=== PATIENT | female | born 1970 | race Two or more races ===

== ENCOUNTER 2020-04-11 15:22 | Outpatient (REF) | payer OTHER, SELFPAY | END 2020-04-11 15:23 | disposition home or self-care (01) | LOC: HO.LAB 15:22 | PROVIDERS: PCP Pediatrics; Visit Provider Internal Medicine | DX: Z20.828 Contact with and (suspected) exposure to other viral communicable diseases (principal) | CPT/HCPCS: C9803; U0003 ==

== ENCOUNTER 2020-07-30 07:40 | Outpatient (REF) | payer OTHER, SELFPAY ==
[2020-07-30 08:28] LABS: MANUAL DIFF FLAG NO
[2020-07-30 08:33] LABS: Glucose Urine UA NEG (NEG); Leukocyte Esterase Urine NEG (NEG); Nitrite Urine NEG (NEG); Specific Gravity - Urine >= 1.030 (1.005-1.025); Urine Blood 1+ (NEG); Urine Ketones NEG (NEG); Urine Protein NEG (NEG-TRACE)
[2020-07-30 08:35] LABS: Appearance Urine HAZY; Color Urine YELLOW
[2020-07-30 08:41] LABS: Basophils Percent Auto 0.8 % (0-2); Eosinophils Absolute Auto 0.1 X10*3/uL (0.0-0.4); Eosinophils Percent Auto 3.1 % (0-4); Hematocrit 38.3 % (37-47); Hemoglobin 12.9 g/dl (12.0-16.0); Lymphocytes Absolute Auto 1.7 X10*3/uL (1.2-4.9); Mean Corpuscular HGB Conc 33.7 g/dl (31.0-35.0); Mean Corpuscular Hemoglobin 30.7 pg (27.0-33.0); Mean Corpuscular Volume 91.2 fL (80-98); Monocytes Absolute Auto 0.4 X10*3/uL (0.1-1.2); Monocytes Percent Auto 9.2 % (2-11); Neutrophils Absolute Auto 1.6 X10*3/uL (2.0-8.3); Neutrophils Percent Auto 41.9 % (45-73); Platelet Count 227 X10*3/uL (160-400); Red Cell Distribution Width 12.4 % (11.0-16.0); White Blood Count 3.8 X10*3/uL (4.8-10.8)
[2020-07-30 09:01] LABS: Bacteria Urine 1+ /LPF; Mucus Urine 1+ /LPF; Squamous Epithelial Cell Urine 3+ /LPF
[2020-07-30 09:28] LABS: Alanine Aminotransferase 43 U/L (0-31); Albumin Level 4.2 g/dL (3.5-5.0); Alkaline Phosphatase 99 U/L (39-117); Anion Gap 12 (12-20); Aspartate Amino Transferase 29 U/L (5-31); Bilirubin Total 1.3 mg/dL (0.0-1.0); Blood Urea Nitrogen 11 mg/dL (9-16); Calcium 9.4 mg/dL (8.4-10.2); Carbon Dioxide 26 mmol/L (22-29); Chloride 104 mmol/L (96-108); Cholesterol 231 mg/dL; Estimated Glomerular Filt Rate > 60; Glucose Fasting 113 mg/dL (60-99); HDL Cholesterol 49 mg/dL; LDL Cholesterol Calculated 146 mg/dl; Potassium 3.7 mmol/L (3.3-5.1); Sodium 138 mmol/L (135-145); Total Protein 7.4 g/dL (6.5-8.0); Triglycerides 180 mg/dL
[2020-07-30 09:31] LABS: T4 Thyroxine 7.3 ug/dL (4.5-12.0); Thyroid Stimulating Hormone 2.45 uIU/mL (0.32-4.0); Vitamin D 25-OH Total 23.5 ng/mL (>30)
[2020-07-31 20:22] LABS: Triiodothyronine T3 Total 137 ng/dL (76-181)
== END 2020-07-30 07:41 | disposition home or self-care (01) ==
LOC: HO.LAB 07:40
PROVIDERS: PCP Pediatrics; Visit Provider Pediatrics
DX: D64.9 Anemia, unspecified (principal); E03.8 Other specified hypothyroidism; E55.9 Vitamin D deficiency, unspecified; K21.9 Gastro-esophageal reflux disease without esophagitis
CPT/HCPCS: 36415; 80053; 80061; 81001; 82306; 84436; 84443; 84480; 85025

== ENCOUNTER 2020-12-31 19:59 | Emergency (ER) | payer OTHER, SELFPAY ==
--- NOTE | ~2020-12-31 | XR_ITS ---
EXAMINATION: XR CHEST CLINICAL INFORMATION: Chest pain. COMPARISON: None TECHNIQUE: 2 views of the chest were obtained. FINDINGS: No significant abnormality is noted involving the heart, lungs, mediastinum, bony thorax or soft tissues. XR/XR chest 2V IMPRESSION: Unremarkable examination.
[2020-12-31 20:24] LABS: MANUAL DIFF FLAG NO
[2020-12-31 20:25] LABS: Basophils Percent Auto 0.5 % (0-2); Eosinophils Absolute Auto 0.1 X10*3/uL (0.0-0.4); Eosinophils Percent Auto 2.3 % (0-4); Hemoglobin 12.8 g/dl (12.0-16.0); Imm Gran Abs Auto 0.01 X10*3/uL (0.00-0.03); Imm Gran Pct Auto 0.2 % (0.0-0.4); Lymphocytes Absolute Auto 2.4 X10*3/uL (1.2-4.9); Lymphocytes Percent Auto 43.5 % (20-40); Mean Corpuscular HGB Conc 34.6 g/dl (31.0-35.0); Mean Corpuscular Hemoglobin 31.9 pg (27.0-33.0); Mean Corpuscular Volume 92.3 fL (80-98); Mean Platelet Volume 10.1 fL (9.4-12.3); Monocytes Absolute Auto 0.5 X10*3/uL (0.1-1.2); Monocytes Percent Auto 8.8 % (2-11); Neutrophils Absolute Auto 2.5 X10*3/uL (2.0-8.3); Neutrophils Percent Auto 44.7 % (45-73); Platelet Count 216 X10*3/uL (160-400); Red Blood Count 4.01 X10*6/uL (4.20-5.50); Red Cell Distribution Width 13.2 % (11.0-16.0); White Blood Count 5.6 X10*3/uL (4.8-10.8)
[2020-12-31 20:49] LABS: Anion Gap 13 (12-20); Blood Urea Nitrogen 11 mg/dL (9-16); Calcium 9.3 mg/dL (8.4-10.2); Carbon Dioxide 26 mmol/L (22-29); Chloride 106 mmol/L (96-108); Estimated Glomerular Filt Rate 59; Glucose Random 135 mg/dL (60-115); Sodium 141 mmol/L (135-145)
[2020-12-31 20:56] LABS: Troponin-I High Sensitivity < 3.5 ng/L (<3.5-17.0)
[2020-12-31 21:25] VITALS: BP 139/87; PULSE 75; RESP 18; TEMP 37.1; O2SAT 98; BMI 25.7
[2021-01-01 01:04] VITALS: BP 143/80; PULSE 69; RESP 14; TEMP 36.8; O2SAT 99
--- NOTE | 2021-01-01 01:19 | ED.CHESTPAIN ---
HPI - Chest Pain General Chief Complaint: Chest Pain Stated Complaint: cp Time Seen by Provider: 01/01/21 00:55 Source: patient Mode of arrival: ambulatory History of Present Illness HPI narrative: 50-year-old female with history of gastritis presents with several transient episodes lasting less than seconds of mid chest discomfort that patient describes as ?somebody punching her in the chest?. This was not associated with radiation into her neck, arm but the latter episodes patient describes radiation into her back. Otherwise, due to the severity of the pain patient experienced initial shortness of breath which quickly resolved. Patient denies any associated fevers, chills, nausea, vomiting, abdominal pain or diarrhea. Patient has not had any COVID-19 vaccines. Related Data Allergies Allergy/AdvReac Type Severity Reaction Status Date / Time penicillin V Allergy Unknown Unknown Verified 12/31/20 21:24 Review of Systems Review of Systems: Pertinent positives and negatives as stated in HPI and 10 point review of systems is otherwise negative. PMFSH Past Medical History Source: nursing notes reviewed Medical History Thyroid activity decreased Social History Social History Advance Directives: No Physical Exam Vital Signs: Vital Signs: Last Vital Signs Temp 98.3 F 01/01/21 01:04 Pulse 69 01/01/21 01:31 Resp 18 01/01/21 01:31 BP 138/83 01/01/21 01:31 Pulse Ox 100 01/01/21 01:31 Body Mass Index 25.7 VITAL SIGNS: Reviewed. GENERAL: Well developed, well nourished, in no acute distress. HEAD: Normocephalic/atraumatic EYES: PERRLA, EOMI EARS: Ext canals without abnormality OROPHARYNX: no oral lesions noted, posterior pharynx clear NECK: Supple, no adenopathy LUNGS: Normal breath sounds. No adventitious sounds or accessory muscle use. SpO2<99> CARDIOVASCULAR: Regular rate and rhythm without noted murmurs, no JVD or lower extremity edema. ABDOMEN: Soft, non-tender, non-distended with bowel sounds. MUSCULOSKELETAL: No tenderness, deformities, or effusions noted on gross inspection. EXTREMITIES: No cyanosis, clubbing or edema. SKIN: Inspection of the skin reveals no rashes NEUROLOGIC: Alert and oriented x 4. Strength and sensation to light touch were grossly intact x 4. Course Course Course Narrative: 50-year-old female with history and clinical presentation inconsistent with angina and on review of all investigations no evidence of elevated troponin or EKG changes and otherwise No suspicion for pneumonia, PE but suspect GERD. HEART Score:2 On review of all investigations and re-evaluation there are no acute findings and patient is feeling better after receiving GI cocktail. Patient otherwise discharged home in stable condition with instructions to follow-up with primary care provider. MDM - Chest Pain Lab Data Result diagrams: 12/31/20 20:20 12/31/20 20:20 Labs: Lab Results 12/31/20 12/31/20 12/31/20 Range/Units 20:20 20:20 20:20 WBC 5.6 (4.8-10.8) X10*3/uL RBC 4.01 L (4.20-5.50) X10*6/uL Hgb 12.8 (12.0-16.0) g/dl Hct 37.0 (37-47) % MCV 92.3 (80-98) fL MCH 31.9 (27.0-33.0) pg MCHC 34.6 (31.0-35.0) g/dl RDW 13.2 (11.0-16.0) % Plt Count 216 (160-400) X10*3/uL MPV 10.1 (9.4-12.3) fL Immature Gran % (Auto) 0.2 (0.0-0.4) % Neut % (Auto) 44.7 L (45-73) % Lymph % (Auto) 43.5 H (20-40) % [place] % (Auto) 8.8 (2-11) % Eos % (Auto) 2.3 (0-4) % Baso % (Auto) 0.5 (0-2) % Lymph # (Auto) 2.4 (1.2-4.9) X10*3/uL [place] # (Auto) 0.5 (0.1-1.2) X10*3/uL Eos # (Auto) 0.1 (0.0-0.4) X10*3/uL Baso # (Auto) 0.0 (0.0-0.2) X10*3/uL Abs Immat Gran (auto) 0.01 (0.00-0.03) X10*3/uL Absolute Neuts (auto) 2.5 (2.0-8.3) X10*3/uL Absolute Nucleated RBC 0.000 (0.0-0.012) X10*3/uL Nucleated RBC % (auto) 0.0 (0.0-0.2) /100WBC Sodium 141 (135-145) mmol/L Potassium 4.0 (3.3-5.1) mmol/L Chloride 106 (96-108) mmol/L Carbon Dioxide 26 (22-29) mmol/L Anion Gap 13 (12-20) BUN 11 (9-16) mg/dL Creatinine 1.00 (0.5-1.4) mg/dL Estim Creat Clear Calc TNP Estimated GFR 59 Random Glucose 135 H (60-115) mg/dL Calcium 9.3 (8.4-10.2) mg/dL Troponin I High Sens < 3.5 (<3.5-17.0) ng/L TSH 14.52 H (0.32-4.0) uIU/mL Urine Color Urine Appearance Urine pH (5.0-8.0) Ur Specific Maria Stein (1.005-1.025) Urine Protein (NEG-TRACE) MG/DL Urine Glucose (UA) (NEG) MG/DL Urine Ketones (NEG) MG/DL Urine Blood (NEG) Urine Nitrite (NEG) Ur Leukocyte Esterase (NEG) Urine RBC (0) /HPF Urine WBC (0-4) /HPF Ur Squamous Epith Cells /LPF Urine Bacteria /LPF Urine Test (NEGATIVE) 01/01/21 01/01/21 Range/Units 01:33 01:33 WBC (4.8-10.8) X10*3/uL RBC (4.20-5.50) X10*6/uL Hgb (12.0-16.0) g/dl Hct (37-47) % MCV (80-98) fL MCH (27.0-33.0) pg MCHC (31.0-35.0) g/dl RDW (11.0-16.0) % Plt Count (160-400) X10*3/uL MPV (9.4-12.3) fL Immature Gran % (Auto) (0.0-0.4) % Neut % (Auto) (45-73) % Lymph % (Auto) (20-40) % [place] % (Auto) (2-11) % Eos % (Auto) (0-4) % Baso % (Auto) (0-2) % Lymph # (Auto) (1.2-4.9) X10*3/uL [place] # (Auto) (0.1-1.2) X10*3/uL Eos # (Auto) (0.0-0.4) X10*3/uL Baso # (Auto) (0.0-0.2) X10*3/uL Abs Immat Gran (auto) (0.00-0.03) X10*3/uL Absolute Neuts (auto) (2.0-8.3) X10*3/uL Absolute Nucleated RBC (0.0-0.012) X10*3/uL Nucleated RBC % (auto) (0.0-0.2) /100WBC Sodium (135-145) mmol/L Potassium (3.3-5.1) mmol/L Chloride (96-108) mmol/L Carbon Dioxide (22-29) mmol/L Anion Gap (12-20) BUN (9-16) mg/dL Creatinine (0.5-1.4) mg/dL Estim Creat Clear Calc Estimated GFR Random Glucose (60-115) mg/dL Calcium (8.4-10.2) mg/dL Troponin I High Sens (<3.5-17.0) ng/L TSH (0.32-4.0) uIU/mL Urine Color COLORLESS Urine Appearance CLEAR Urine pH 6.0 (5.0-8.0) Ur Specific Maria Stein 1.010 (1.005-1.025) Urine Protein NEG (NEG-TRACE) MG/DL Urine Glucose (UA) NEG (NEG) MG/DL Urine Ketones NEG (NEG) MG/DL Urine Blood TRACE (NEG) Urine Nitrite NEG (NEG) Ur Leukocyte Esterase NEG (NEG) Urine RBC 1-4 (0) /HPF Urine WBC 0-2 (0-4) /HPF Ur Squamous Epith Cells 2+ /LPF Urine Bacteria NONE /LPF Urine Test NEGATIVE (NEGATIVE) ECG Data ECG #1: Attestation: I personally reviewed and interpreted this ECG as follows: Prior ECG tracings: not available for review Interpretation: Normal sinus rhythm, HR -84, incomplete RBBB, no STEMI, MA/QRS/QTC are within normal limits Discharge Plan Discharge Clinical Impression: Atypical chest pain, Gastroesophageal reflux disease Patient Disposition: Home, Self-Care Instructions: Gastroesophageal Reflux Disease (ED), Diet for Stomach Ulcers and Gastritis (ED) Additional Instructions: 1. Reanude todos los medicamentos caseros. 2. Se carcamo observado que higinio niveles de tiroides son levemente anormales y debe regresar a fonseca proveedor de atenci?n primaria para discutir el ajuste de la medicaci?n. 3. Khushbu un seguimiento con fonseca proveedor de atenci?n primaria en los pr?ximos 2-3 d?as para minna reevaluaci?n. Regrese a la antonino de emergencias por un empeoramiento eugene de los s?ntomas. Print Language: Sinhala
[2021-01-01 01:31] VITALS: BP 138/83; PULSE 69; RESP 18; O2SAT 100
[2021-01-01] MEDS: Lidocaine HCl Viscous 2 % 15 ML SOLUTION 10 ML MUCOUS MEM (01:32)
[2021-01-01] MEDS: Magnesium Hydrox/Alum Hydrox 30 ML ORAL.SUSP PO (01:32)
[2021-01-01 01:40] LABS: Appearance Urine CLEAR; Color Urine COLORLESS; Glucose Urine UA NEG (NEG); Leukocyte Esterase Urine NEG (NEG); Nitrite Urine NEG (NEG); UACC Culture Trigger NO; Urine Blood TRACE (NEG); Urine Ketones NEG (NEG); Urine Protein NEG (NEG-TRACE)
[2021-01-01 01:41] LABS: UPreg QC Valid YES; Urine Pregnancy NEGATIVE (NEGATIVE)
[2021-01-01 01:47] LABS: Squamous Epithelial Cell Urine 2+ /LPF; WBC Urine 0-2 /HPF (0-4)
[2021-01-01 01:56] LABS: Thyroid Stimulating Hormone 14.52 uIU/mL (0.32-4.0)
== END 2021-01-01 03:17 | disposition home or self-care (01) ==
PROVIDERS: Emergency Provider Student in an Organized Health Care Education/Training Program; PCP Pediatrics
DX: R07.9 Chest pain, unspecified (principal); M54.2 Cervicalgia; K21.9 Gastro-esophageal reflux disease without esophagitis
CPT/HCPCS: 36415; 71046; 80048; 81001; 81025; 84443; 84484; 85025; 99284

== ENCOUNTER 2021-01-16 11:35 | Outpatient (REF) | payer OTHER, SELFPAY | END 2021-01-16 11:36 | disposition home or self-care (01) | LOC: HO.LNP 11:35 | PROVIDERS: PCP Pediatrics; Visit Provider Family Medicine | DX: K21.9 Gastro-esophageal reflux disease without esophagitis (principal) | CPT/HCPCS: 87338 ==

== ENCOUNTER 2021-11-13 09:37 | Outpatient (REF) | payer OTHER, SELFPAY ==
--- NOTE | ~2021-11-13 | MM_ITS ---
EXAMINATION: MM SCREENING DIGITAL BREAST TOMOSYNTHESIS, BILATERAL CLINICAL INFORMATION: Screening. Asymptomatic. The lifetime risk of breast cancer based on the Tyrer-Cuzick Model is 6%. COMPARISON: Mammography: 12/17/2018, 12/08/2017, 11/07/2016 TECHNIQUE: Digital breast tomosynthesis is performed in both the craniocaudal and mediolateral oblique views along with computer-aided detection (CAD). Synthesized 2D images are generated from the tomosynthesis. FINDINGS: The breasts are heterogeneously dense, which may obscure small masses (ACR BI-RADS breast composition Category c). There are no significant masses, abnormal calcifications, or other abnormalities. Breast tissue composition borders on extremely dense. Parenchymal pattern is similar to prior studies. No developing density or architectural abnormality. The axilla and skin contours are unremarkable. MM/MM tomosynthesis screening BI IMPRESSION: No mammographic evidence of malignancy. ASSESSMENT: BI-RADS 1: Negative RECOMMENDATION: Routine annual mammography screening. This patient's information was entered into a reminder system with a target due date for their next mammogram.
== END 2021-11-13 09:38 | disposition home or self-care (01) ==
LOC: HO.MAMMO 09:37
PROVIDERS: Visit Provider Pediatrics
DX: Z12.31 Encounter for screening mammogram for malignant neoplasm of breast (principal)
CPT/HCPCS: 77063; 77067

== ENCOUNTER 2021-12-18 10:45 | Outpatient (REF) | payer OTHER, SELFPAY ==
--- NOTE | ~2021-12-18 | XR_ITS ---
EXAMINATION: XR LUMBAR SPINE XR PELVIS CLINICAL INFORMATION: Spondylosis. Sacrococcygeal disorder. COMPARISON: None. TECHNIQUE: AP radiograph of the pelvis. 3 views of the lumbar spine. FINDINGS: Normal alignment of the lumbar spine with normal lordosis. No fracture. There are small endplate osteophytes throughout the lumbar spine with no significant disc space narrowing. Mild facet arthrosis at L4-L5 on the right. No spondylolysis or spondylolisthesis. The sacroiliac joint and hip joints appear normal. No acute osseous abnormality. There is a transitional lumbosacral junction with the left L5 transverse process articulating with the sacrum with prominent degenerative change. This can be a source of left-sided low back pain. XR/XR pelvis 1-2V IMPRESSION: Transitional lumbosacral junction articulating on the left with prominent degenerative change, a potential source of low back pain. Minimal multilevel degenerative disc disease. No acute abnormalities.
--- NOTE | ~2021-12-18 | XR_ITS ---
EXAMINATION: XR LUMBAR SPINE XR PELVIS CLINICAL INFORMATION: Spondylosis. Sacrococcygeal disorder. COMPARISON: None. TECHNIQUE: AP radiograph of the pelvis. 3 views of the lumbar spine. FINDINGS: Normal alignment of the lumbar spine with normal lordosis. No fracture. There are small endplate osteophytes throughout the lumbar spine with no significant disc space narrowing. Mild facet arthrosis at L4-L5 on the right. No spondylolysis or spondylolisthesis. The sacroiliac joint and hip joints appear normal. No acute osseous abnormality. There is a transitional lumbosacral junction with the left L5 transverse process articulating with the sacrum with prominent degenerative change. This can be a source of left-sided low back pain. XR/XR lumbar spine 2-3V IMPRESSION: Transitional lumbosacral junction articulating on the left with prominent degenerative change, a potential source of low back pain. Minimal multilevel degenerative disc disease. No acute abnormalities.
== END 2021-12-18 10:46 | disposition home or self-care (01) ==
LOC: HO.XRAY 10:45
PROVIDERS: PCP Pediatrics; Visit Provider Nurse Practitioner Family
DX: M47.816 Spondylosis without myelopathy or radiculopathy, lumbar region (principal); M53.3 Sacrococcygeal disorders, not elsewhere classified; S16.1XXA Strain of muscle, fascia and tendon at neck level, initial encounter
CPT/HCPCS: 72100; 72170; 99202

== ENCOUNTER 2021-12-25 10:38 | Outpatient (REF) | payer OTHER, SELFPAY ==
[2021-12-25 11:02] LABS: MANUAL DIFF FLAG NO
[2021-12-25 11:52] LABS: Basophils Percent Auto 0.7 % (0-2); Eosinophils Absolute Auto 0.2 X10*3/uL (0.0-0.4); Eosinophils Percent Auto 4.5 % (0-4); Hematocrit 38.6 % (37.0-47.0); Hemoglobin 12.9 g/dl (12.0-16.0); Imm Gran Abs Auto 0.02 X10*3/uL (0.00-0.03); Imm Gran Pct Auto 0.5 % (0.0-0.4); Lymphocytes Absolute Auto 1.7 X10*3/uL (1.2-4.9); Lymphocytes Percent Auto 42.5 % (20-40); Mean Corpuscular HGB Conc 33.4 g/dl (31.0-35.0); Mean Corpuscular Hemoglobin 30.9 pg (27.0-33.0); Mean Corpuscular Volume 92.6 fL (80.0-98.0); Mean Platelet Volume 10.1 fL (9.4-12.3); Monocytes Absolute Auto 0.4 X10*3/uL (0.1-1.2); Monocytes Percent Auto 8.7 % (2-11); Neutrophils Absolute Auto 1.7 x10*3/uL (2.0-8.3); Neutrophils Percent Auto 43.1 % (45-73); Platelet Count 226 X10*3/uL (160-400); Red Blood Count 4.17 X10*6/uL (4.20-5.50); Red Cell Distribution Width 12.8 % (11.0-16.0)
[2021-12-25 12:21] LABS: Alanine Aminotransferase 36 U/L (0-31); Albumin Level 4.3 g/dL (3.5-5.0); Alkaline Phosphatase 94 U/L (39-117); Anion Gap 10 (12-20); Aspartate Amino Transferase 30 U/L (5-31); Blood Urea Nitrogen 12 mg/dL (9-16); Calcium 9.7 mg/dL (8.4-10.2); Carbon Dioxide 28 mmol/L (22-29); Chloride 104 mmol/L (96-108); Estimated Glomerular Filt Rate > 60; Glucose Random 96 mg/dL (60-115); Potassium 4.1 mmol/L (3.3-5.1); Sodium 138 mmol/L (135-145); Total Protein 7.9 g/dL (6.5-8.0)
== END 2021-12-25 10:39 | disposition home or self-care (01) ==
LOC: HO.LAB 10:38
PROVIDERS: PCP Pediatrics; Visit Provider Nurse Practitioner
DX: Z01.818 Encounter for other preprocedural examination (principal)
CPT/HCPCS: 36415; 80053; 85025; 99202; 99212

== ENCOUNTER → 2022-01-15 09:46 | Outpatient (BNVA) | payer OTHER, SELFPAY | PROVIDERS: PCP Pediatrics; Visit Provider Nurse Practitioner Family | DX: M47.816 Spondylosis without myelopathy or radiculopathy, lumbar region (principal); M53.3 Sacrococcygeal disorders, not elsewhere classified; M62.838 Other muscle spasm | CPT/HCPCS: 99212 ==

== ENCOUNTER 2022-04-30 11:23 | Day surgery (SDC) | payer OTHER, SELFPAY ==
[2022-04-22 12:43] VITALS: BMI 28.3
--- NOTE | 2022-04-29 10:46 | P.CONAN_ITS ---
Documented by User: Marina Sarabia NP 04/29/22 10:47 HPI - Anesthesia Eval Consult details Narrative: 51yo F for Upper Endoscopy and Colonoscopy PMFSH Active Problems Active Problems: All Active Problems (Updated 04/22/22 @ 12:29 by Ijeoma Sharp RN) Spondylosis of lumbar spine (Acute) Sacroiliac joint pain (Acute) Strain of cervical portion of right trapezius muscle (Acute) Pre-op examination (Acute) Muscle spasm (Acute) Past Medical History Medical History Anemia History of COVID-19 Thyroid activity decreased Surgical History Surgical History History of esophagogastroduodenoscopy (EGD) History of tubal ligation Social History Social History Are you a primary pediatric critical care nurse to a significant other at home: No Do you presently have visiting nurse or other home services: No Patient Tobacco Use Status: Never used Tobacco Use of substances other than those prescribed or required for medical reasons: No Have you been hit, kicked, punched, or otherwise hurt by someone within the past year? If so, by whom?: No Are you DNR?: No Advance Directives: No Advance Directives Information Provided: Yes (brochure mailed) Advance Directives on File: No Recently lost weight without trying: No Eating poorly because of decreased appetite: No Nutrition Risks: No Nutritional Risk Poor oral hygiene: No Meds Allergies Allergy/AdvReac Type Severity Reaction Status Date / Time Penicillins Allergy Unknown Unknown-childhood Verified 04/22/22 12:42 allergy Home Medications Medication Instructions Recorded Confirmed Last Taken Type levothyroxine 50 mcg tablet 50 mcg PO DAILY 12/18/21 04/22/22 Unknown History Exam Exam Date and Time: April 29, 2022 1046 Height,Weight and Vital Signs: Height 5 ft 3 in Weight 72.575 kg Pertinent Lab Results Pertinent Lab Results: Laboratory Tests 12/25/21 12/25/21 11:01 11:01 WBC 4.0 L Hgb 12.9 Hct 38.6 Plt Count 226 Sodium 138 Potassium 4.1 Chloride 104 Carbon Dioxide 28 BUN 12 Creatinine 0.81 Assessment and Plan Assessment Anesthesia Assessment: Chart Reviewed Documented by User: Nelda Lyons MD 04/30/22 12:59 PMFSH Active Problems Active Problems: All Active Problems (Updated 04/22/22 @ 12:29 by Ijeoma Sharp RN) Spondylosis of lumbar spine (Acute) Sacroiliac joint pain (Acute) Strain of cervical portion of right trapezius muscle (Acute) Pre-op examination (Acute) Muscle spasm (Acute) Hypothyroidism Past Medical History Medical History Anemia History of COVID-19 Thyroid activity decreased Family History Family history of problems with anesthesia: No Surgical History Surgical History History of esophagogastroduodenoscopy (EGD) History of tubal ligation History of Problems with Anesthesia: No Social History Social History Are you a primary pediatric critical care nurse to a significant other at home: No Do you presently have visiting nurse or other home services: No Patient Tobacco Use Status: Never used Tobacco Use of substances other than those prescribed or required for medical reasons: No Have you been hit, kicked, punched, or otherwise hurt by someone within the past year? If so, by whom?: No Are you DNR?: No Advance Directives: No Advance Directives Information Provided: Yes (brochure mailed) Advance Directives on File: No Recently lost weight without trying: No Eating poorly because of decreased appetite: No Nutrition Risks: No Nutritional Risk Poor oral hygiene: No Meds Allergies Allergy/AdvReac Type Severity Reaction Status Date / Time Penicillins Allergy Unknown Unknown-childhood Verified 04/22/22 12:42 allergy Home Medications Medication Instructions Recorded Confirmed Last Taken Type levothyroxine 50 mcg tablet 50 mcg PO DAILY 12/18/21 04/22/22 Unknown History Exam Height,Weight and Vital Signs: Height 5 ft 3 in Weight 72.575 kg Vital Signs Temp Pulse Resp BP Pulse Ox O2 Del Method 04/30/22 12:27 98.0 F 85 16 138/85 97 Room Air Airway Mallampati Class: II TM Dist: >3cm Neck ROM: Full Loose/Missing/Broken Teeth: No Heart: RRR Lungs: CTAB Assessment and Plan Assessment Anesthesia Assessment: Anesthesia Plan Discussed Final Anesthetic Review Family History of Problems with Anesthesia: No History of Problems with Anesthesia: No NPO: Yes ASA Class: II Final Preanesthetic Review: No Changes in Pt Med Stat, Meds/Allgs Chart Reviewed, Consent Obtained/Reviewed and Anes Risks/Benef Reviewed Patient Risk: Low Procedure Risk: Low Assessment/Block/Sedation in SS: Assess/Block/Sedation-SS Anesthetic Plan Anesthetic Plan: MAC: Disposition: Standard PACU
--- NOTE | 2022-04-30 11:45 | MHC.SHP ---
Pre-Procedural Eval Section A Date of Service: 04/30/22 Section B Chief Complaint: screening, dysphagia and reflux Details of Present Illness: noted worsenign dysphagia to solids and reflux sx, sister with gastric intestinal metaplasia Relevant Family History (Specify if Yes): Yes Relevant Social History: None Present Medications: see Short Stay Collaborative assessment Medical History: Significant History (Anemia History of COVID-19 Thyroid activity decreased) History of Previous Operations: Relevant previous surgery/procedure and date(s) (History of esophagogastroduodenoscopy (EGD) History of tubal ligation) Allergies: Allergies Allergy/AdvReac Type Severity Reaction Status Date / Time Penicillins Allergy Unknown Unknown-childhood Verified 04/22/22 12:42 allergy Review of Systems Sugical H&P ROS: Negative: Constitution, Cardiovascular, Respiratory, Neurological, Psychiatric, Hem-Onc, Allergic/Immunologic, Gastrointestinal, Genitourinary, Musculoskeletal, Integumentary, Endocrine and Eyes/Ears/Nose/Throat Exam Surgical H&P Exam: Normal: HEENT, Normal: Heart, Normal: Lungs, Normal: Extremities, Normal: Abdomen, Normal: Skin and Normal: Neurological Plan Diagnosis/Plan: Unchanged I have reviewed the history and physical and performed a pertinent physical examination on my patient. No changes have occurred unless specified. EGD added due to symptoms of dysphagia and regurgitation, reflux.
[2022-04-30 12:27] VITALS: BP 138/85; PULSE 85; RESP 16; TEMP 36.7; O2SAT 97
[2022-04-30] MEDS: Lactated Ringers 1,000 ML 100 ML IVCONT (12:34)
--- NOTE | 2022-04-30 12:43 | W.PM.OPN ---
Operative Note Operative Note Date of Service: 04/30/22 Narrative: Operative Information Procedure Description: EGD, Colonoscopy Indication: dysphagia, colon screening Anesthesia: MAC FLEXIBLE TRANSORAL UPPER GASTROINTESTINAL ENDOSCOPY AND COLONOSCOPY PROCEDURE NOTE UPPER ENDOSCOPY Consent: Indications for the procedure and potential complications of bleeding, perforation, reaction to medications and missed diagnosis were discussed with the patient and informed consent was obtained. Instrument: Olympus GIF H 190 J mid size upper endoscope Monitoring: Vital signs and clinical assessment, continuous EKG monitoring, Pulse oximetry, Carbon Dioxide monitoring and blood pressure monitoring were done throughout the procedure. Procedure: The patient was placed in the left lateral decubitis position and pre-procedure medications were administered and a bite block was placed. The endoscope was inserted into the mouth and advanced under direct vision to the third part of duodenum. A careful inspection was made as the upper endoscope was withdrawn including a retroflexed examination of the proximal stomach; Findings and interventions are described below. Findings: Larynx:normal Esophagus: GE junction at 38 cm, diaphragm hiatus at 38 cm, some bogginess and erythema at GEJ, one small island of salmon pink tissue, bx taken, also from distal and proximal esophagus. Balloon dilation to 19 mm at LEs and UES, no tears seen Stomach: Patchy erythematous mucosa. Biopsies were obtained. Grade 2 flap valve on retroflexed examination of the cardia.appeared to be extrinsic compression of antrum Duodenum: Normal bulb and descending duodenum, Intervention: Biopsies as noted above, balloon dilation COLONOSCOPY Instrument: Olympus variable stiffness Adult scope 190L Colonoscopy Monitoring: Vital signs and clinical assessment, continuous EKG monitoring, Pulse oximetry, Carbon Dioxide monitoring and blood pressure monitoring were done throughout the procedure. Colon withdrawal time was 6 minutes. Procedure: The patient was placed in the left lateral decubitis position and pre-procedure medications were administered. After a digital rectal examination of the ano-rectum, the video colonoscope was inserted into the rectum and advanced through the colon to the cecum/TI. The colonoscope was slowly withdrawn in a retrograde panoramic fashion and the colon mucosa was carefully examined including a retroflexed view of the rectum. Findings and interventions are described below. Procedure Difficulty: easy Findings: Terminal Ileum-normal Cecum:normal Ascending Colon: normal Transverse Colon -normal Descending Colon:normal Sigmoid Colon: normal Rectum: Retroflexion with small internal hemorrhoids, grade I Anorectum - normal Colon preparation: [place] Bowel Preparation Scale Right colon; 2 Transverse colon: 3 Left colon; 3 (0 = Unprepared colon segment with mucosa not seen due to solid stool that cannot be cleared. 1 = Portion of mucosa of the colon segment seen, but other areas of the colon segment not well seen due to staining, residual stool and/or opaque liquid. 2 = Minor amount of residual staining, small fragments of stool and/or opaque liquid, but mucosa of colon segment seen well. 3 = Entire mucosa of colon segment seen well with no residual staining, small fragments of stool or opaque liquid) Impression and Post Procedure Diagnosis: Endoscopy Findings: esophagitis gastritis Colonoscopy Findings: internal hemorrhoids Plan: Await Pathology results Repeat Colonoscopy in 10 years or earlier if clinically indicated High fiber diet leaflet avoid straining at stool, epsom salts and sitz bath, anusol supps or cream check if taking PPI, may benefit from this, also appeared to be extrinsci compression of the distal wall of stomach, will get US duplex to exclude SMA syndrome Above findings were reviewed with the patient and relevant handouts were provided if indicated.
[2022-04-30 13:25] VITALS: BP 105/55; PULSE 97; RESP 18; TEMP 36.4; O2SAT 95
[2022-04-30 13:44] VITALS: BP 104/64; PULSE 80; RESP 18; TEMP 36.3; O2SAT 97
[2022-04-30 13:59] VITALS: BP 128/83; PULSE 88; RESP 18; TEMP 36.4; O2SAT 98
[2022-04-30 14:14] VITALS: BP 140/86; PULSE 77; RESP 18; TEMP 36.3; O2SAT 100
[2022-04-30 14:29] VITALS: BP 131/91; PULSE 69; RESP 18; TEMP 36.5; O2SAT 100
== END 2022-04-30 15:59 | disposition home or self-care (01) ==
PROVIDERS: PCP Pediatrics; Visit Provider Internal Medicine Gastroenterology
PROC: 0DJD8ZZ Inspection of Lower Intestinal Tract, Via Natural or Artificial Opening Endoscopic (ICD-10-PCS; CPT 45378; principal; 2022-04-30 13:00)
DX: Z12.11 Encounter for screening for malignant neoplasm of colon (principal); K64.0 First degree hemorrhoids; R13.10 Dysphagia, unspecified; K20.80 Other esophagitis without bleeding; K21.9 Gastro-esophageal reflux disease without esophagitis; K29.50 Unspecified chronic gastritis without bleeding; K44.9 Diaphragmatic hernia without obstruction or gangrene; D64.9 Anemia, unspecified; E07.9 Disorder of thyroid, unspecified; Z79.899 Other long term (current) drug therapy; Z88.0 Allergy status to penicillin; Z86.16 Personal history of COVID-19
CPT/HCPCS: 45378; 43249; 43239; 88305; 88342; C1726; J2250

== ENCOUNTER 2022-05-05 10:17 | Outpatient (REF) | payer OTHER, SELFPAY ==
--- NOTE | ~2022-05-05 | US_ITS ---
EXAMINATION: US ABDOMEN, MESENTERIC ARTERIES CLINICAL INFORMATION: Epigastric pain with question of SMA or celiac compression syndrome. COMPARISON: None TECHNIQUE: The study is extremely limited secondary to overlying bowel gas. Velocities in the aorta were measured proximal and distal to the SMA. Celiac velocities were obtained during inspiration and expiration both in the supine and erect position. Velocities in the proximal mid and distal SMA were obtained along with velocities in the ROGER, splenic artery and hepatic artery. The SMA angle was calculated in both the supine and sitting positions. FINDINGS: Velocities (all reported in cm per second): Aortic proximal to SMA: 76 Aortic distal to SMA: 64 Celiac inspiration supine: 84 Celiac inspiration erect: 72 SMA proximal: 122 SMA mid: 86 SMA distal: 102 ROGER: 131 Splenic artery: 117 Hepatic artery: 170 The SMA angle in the supine position was 119 and sitting was 65.3. US/US SMA IMPRESSION: All velocities are within normal limits. No evidence to suggest median arcuate ligament syndrome or other mesenteric stenosis.
== END 2022-05-05 10:18 | disposition home or self-care (01) ==
LOC: HO.US 10:17
PROVIDERS: Visit Provider Internal Medicine Gastroenterology
DX: R10.13 Epigastric pain (principal)
CPT/HCPCS: 93976

== ENCOUNTER → 2022-05-14 09:57 | Outpatient (BNVA) | payer OTHER, SELFPAY | PROVIDERS: PCP Pediatrics; Visit Provider Nurse Practitioner | DX: Z12.11 Encounter for screening for malignant neoplasm of colon (principal); K21.9 Gastro-esophageal reflux disease without esophagitis | CPT/HCPCS: 99212 ==

== ENCOUNTER → 2022-05-27 14:23 | Outpatient (BNVA) | payer OTHER, SELFPAY | PROVIDERS: PCP Pediatrics; Visit Provider Nurse Practitioner | DX: K21.9 Gastro-esophageal reflux disease without esophagitis (principal); K59.04 Chronic idiopathic constipation; Z79.899 Other long term (current) drug therapy | CPT/HCPCS: 99212 ==

== ENCOUNTER → 2022-06-25 12:52 | Outpatient (BNVA) | payer OTHER, SELFPAY | PROVIDERS: PCP Pediatrics; Visit Provider Nurse Practitioner | DX: K21.9 Gastro-esophageal reflux disease without esophagitis (principal); K59.04 Chronic idiopathic constipation | CPT/HCPCS: 99212 ==

== ENCOUNTER → 2022-07-23 09:27 | Outpatient (BNVA) | payer OTHER, SELFPAY | PROVIDERS: PCP Pediatrics; Visit Provider Nurse Practitioner | DX: K21.9 Gastro-esophageal reflux disease without esophagitis (principal); K59.04 Chronic idiopathic constipation | CPT/HCPCS: 99212 ==

== ENCOUNTER 2022-12-09 09:18 | Outpatient (REF) | payer OTHER, SELFPAY ==
--- NOTE | ~2022-12-09 | MM_ITS ---
EXAMINATION: MM SCREENING DIGITAL BREAST TOMOSYNTHESIS, BILATERAL CLINICAL INFORMATION: Screening. Asymptomatic. The lifetime risk of breast cancer based on the Tyrer-Cuzick Model is 6.7%. COMPARISON: Mammography: This study is compared with prior exams dating back to 2019. TECHNIQUE: Digital breast tomosynthesis is performed in both the craniocaudal and mediolateral oblique views along with computer-aided detection (CAD). Synthesized 2D images are generated from the tomosynthesis. FINDINGS: The breasts are heterogeneously dense, which may obscure small masses (ACR BI-RADS breast composition Category c). There are no significant masses, abnormal calcifications, or other abnormalities. MM/MM tomosynthesis screening BI IMPRESSION: No mammographic evidence of malignancy. ASSESSMENT: BI-RADS BI-RADS 1 - Negative RECOMMENDATION: Routine annual mammography screening. 1 year F/U This examination should not preclude the clinical evaluation of a suspicious palpable abnormality. This patient's information was entered into a reminder system with a target due date for their next mammogram.
== END 2022-12-09 09:19 | disposition home or self-care (01) ==
LOC: HO.MAMMO 09:18
PROVIDERS: PCP Pediatrics; Visit Provider Pediatrics
DX: Z12.31 Encounter for screening mammogram for malignant neoplasm of breast (principal)
CPT/HCPCS: 77063; 77067

== ENCOUNTER → 2022-12-09 09:45 | Outpatient (BNV) | payer OTHER, SELFPAY | PROVIDERS: PCP Pediatrics; Visit Provider Radiology Diagnostic Radiology | DX: Z12.31 Encounter for screening mammogram for malignant neoplasm of breast (principal) | CPT/HCPCS: 77063; 77067 ==

== ENCOUNTER 2023-01-13 10:02 | Outpatient (REF) | payer OTHER, SELFPAY | END 2023-01-13 10:03 | disposition home or self-care (01) | LOC: HO.LNP 10:02 | PROVIDERS: PCP Pediatrics; Visit Provider Obstetrics & Gynecology | DX: R87.810 Cervical high risk human papillomavirus (HPV) DNA test positive (principal); R87.610 Atypical squamous cells of undetermined significance on cytologic smear of cervix (ASC-US) | CPT/HCPCS: 57454; 81025; 88305; 99202 ==

== ENCOUNTER 2023-01-13 10:02 | Outpatient (AMB) | payer OTHER, SELFPAY ==
--- NOTE | 2023-01-13 10:09 | A.OFFVIS_ITS ---
Intake Vital Signs 01/13/23 10:17 Height 5 ft 3 in Weight 157 lb BMI 27.8 BP 120/80 Intake Visit Reasons: colpo/PCP Referral Multimedia Instructional Designer Required: Yes Multimedia Instructional Designer Language: Supervisor Logging Name: Jayme [id number] Information Interpreted: non-clinical & clinical Painter Touch Up: Painter Touch Up Present (Aidyn) Allergies Penicillins Allergy (Unknown, Verified 01/13/23 10:19) Unknown-childhood allergy Is last menstrual period known: No Post menopausal: Yes HPI HPI Comments History of Present Illness Details Presenting referred from [facility] regarding abnormal Pap smear done on 11/25/2022 showing ascus/HPV positive [facility] Medical History Anemia Gastroesophageal reflux disease History of COVID-19 Thyroid activity decreased Surgical History H/O colonoscopy History of esophagogastroduodenoscopy (EGD) History of tubal ligation Social History Are you a primary animal daycare provider to a significant other at home: No Do you presently have visiting nurse or other home services: No Patient Tobacco Use Status: Never used Tobacco Female Reproductive History Menstrual Age of Menarche: 14 control method: permanent sterilization Total pregnancies: 3 Full term: 3 Number of Living Children: 3 Date of Mammogram: 12/09/22 Review of Systems Const All systems reviewed & are unremarkable except as noted in HPI and below Physical Exam Vital Signs: Last Vital Signs BP 120/80 01/13/23 10:17 BMI result Body Mass Index 27.8 General: Yes no CVA tenderness External Female Exam: normal external appearance and normal appearance of the urethra Speculum Exam - Vagina: normal appearance of the vagina, normal palpation, no lesions and no masses Speculum Exam - Cervix: normal appearance of the cervix, normal palpation, no lesions, no masses and nontender Bimanual exam- vagina & uterus: normal bimanual exam, normal palpation, uterine size normal, normal palpation, uterine shape normal, No Cervical tenderness present and non-tender Bimanual Exam- Adnexa, other: normal adnexae Back/Spine/Pelvis Back: no CVA tenderness Office Procedures Colposcopy Before the procedure was started discussed with the patient the procedure, alternatives & all the risks associated with the procedure (bleeding, infection, injury to vagina, bladder, vessels, possible need for transfusion with all its risks) then patient signed the consent UPT done in the office & negative Pap smear = ascus/HPV positive Speculum inserted, acetic acid used Colposcopy done Transformation zone seen, acetowhite lesions identified at 4+6+7+12+1 o?clock, cervical biopsies taken from 4+6+7+11+1 o?clock, ECC done afterwards. Vaginoscopy of the upper vagina showed no evidence of any aceto-white lesions Monsel solution used for hemostasis. The patient tolerated well . At the end the patient was instructed to call if temp>100.4, abdominal pain, n/v, bleeding; The patient was given the following instructions: nothing per vagina, no intercourse or bath tub use. All questions answered the patient verbalized understanding. Instructed the patient to make an appointment in 2 weeks for follow-up This note was generated with a voice recognition program. Some errors may have been overlooked during the review of this note. Sometimes these errors may aff ect the content or meaning of a given sentence. [id number] of cervix including upper vagina with biopsy and ECC Procedure code (CPT) selection complete Assessment & Plan Assessment & Plan (1) ASCUS with positive high risk HPV cervical: Code(s): R87.610 - Atypical squamous cells of undetermined significance on cytologic smear of cervix (ASC-US); R87.810 - Cervical high risk human papillomavirus (HPV) DNA test positive Plan: Discussed with the patient the result of her abnormal pap, its significance, risk of progression, persistence, and regression if untreated. the false positive/negative rate being a screening test, the indication for diagnostic test -colposcopy, biopsy, endocervical curettage. The patient verbalized understanding and agreed with the plan, all questions answered. Colposcopy done, see procedure note The Communication with the patient was through phone certified roving sizerJayme# [id number] Orders: Orders AMB Colposcopy Today R87.610 - Atypical squamous cells of undetermined significance on cytologic smear of cervix (ASC-US), R87.810 - Cervical high risk human papillomavirus (HPV) DNA test positive Coding Level of Care Code New Pt Level 3 (54994) Procedure Only Diagnoses ASCUS with positive high risk HPV cervical R87.610; R87.810 CPT Codes Colposcopy - CPT: 46462-[id number] of cervix including upper vagina with biopsy and ECC ([id number])
[2023-01-13 10:17] VITALS: BP 120/80; BMI 27.8
== END 2023-01-13 10:45 | disposition home or self-care (01) ==
LOC: HO.HWS 10:02
PROVIDERS: PCP Pediatrics; Visit Provider Obstetrics & Gynecology
DX: R87.610 Atypical squamous cells of undetermined significance on cytologic smear of cervix (ASC-US) (principal); R87.810 Cervical high risk human papillomavirus (HPV) DNA test positive; Z32.02 Encounter for pregnancy test, result negative
CPT/HCPCS: 57454; 99203

== ENCOUNTER 2023-01-15 15:18 | Outpatient (AMB) | payer OTHER, SELFPAY ==
[2023-01-15 15:23] VITALS: BP 122/78; BMI 27.8
--- NOTE | 2023-01-15 15:23 | MHC.OFFVIS ---
Intake Vital Signs 01/15/23 15:23 Height 5 ft 3 in Weight 157 lb BMI 27.8 BP 122/78 Intake Visit Reasons: pelvic pain after colpo Light Armored Vehicle Officer Required: Yes Light Armored Vehicle Officer Language: Foundation Relations Director Name: Pippa CONLEY Information Interpreted: non-clinical & clinical Main Entree Cook And Cashier: Main Entree Cook And Cashier Present (Pippa) Allergies Penicillins Allergy (Unknown, Verified 01/15/23 15:24) Unknown-childhood allergy Is last menstrual period known: No Post menopausal: Yes HPI HPI Comments History of Present Illness Details Presenting 2 days post colposcopy after 1 day pelvic pain that resolved today in addition the patient is complaining of vulvovaginal discharge with foul odor, no urinary or GI symptoms, no fever or chills no nausea or vomiting. PFSH Medical History Anemia Gastroesophageal reflux disease History of COVID-19 Thyroid activity decreased Surgical History H/O colonoscopy History of esophagogastroduodenoscopy (EGD) History of tubal ligation Social History Are you a primary patient care provider to a significant other at home: No Do you presently have visiting nurse or other home services: No Patient Tobacco Use Status: Never used Tobacco Female Reproductive History Menstrual Age of Menarche: 14 control method: permanent sterilization Date of last pap smear: 08/26/17 (negative) Review of Systems Const All systems reviewed & are unremarkable except as noted in HPI and below Physical Exam Vital Signs: Last Vital Signs BP 122/78 01/15/23 15:23 BMI result Body Mass Index 27.8 GI Palpation (GI): Soft to palpation and nontender General: Yes no CVA tenderness External Female Exam: normal external appearance and normal appearance of the urethra Speculum Exam - Vagina: normal appearance of the vagina, normal palpation, no lesions and no masses Speculum Exam - Cervix: normal appearance of the cervix, normal palpation, no lesions, no masses and nontender Bimanual exam- vagina & uterus: normal bimanual exam, normal palpation, uterine size normal, normal palpation, uterine shape normal, No Cervical tenderness present and non-tender Bimanual Exam- Adnexa, other: normal adnexae Back/Spine/Pelvis Back: no CVA tenderness Assessment & Plan Assessment & Plan (1) Bacterial vaginal infection: Code(s): N76.0 - Acute vaginitis; B96.89 - Other specified bacterial agents as the cause of diseases classified elsewhere Plan: GC and chlamydia cultures with BV panel taken. Will treat with Flagyl 500 mg p.o. b.i.d. x 7 days, Instructions given to the patient to refrain from sexual activity or to use condoms consistently and correctly during the BV treatment regimen, not to douch, it might increase the risk for relapse, and to call in case of fever above 100.4, pelvic pain, vaginal bleeding, nausea or vomiting or if her symptoms recur or persist. All questions answered, the patient verbalized understanding Orders: Orders Bacterial Vaginosis Panel Today B96.89 - Other specified bacterial agents as the cause of diseases classified elsewhere, N76.0 - Acute vaginitis CT NG by PCR Today B96.89 - Other specified bacterial agents as the cause of diseases classified elsewhere, N76.0 - Acute vaginitis Medications: New metronidazole 500 mg PO BID 14 tabs 0RF 7 days Coding Level of Care Code Est Pt Level 3 (34982) Diagnoses Bacterial vaginal infection N76.0; B96.89
== END 2023-01-16 08:45 | disposition home or self-care (01) ==
LOC: HO.HWS 15:18
PROVIDERS: PCP Pediatrics; Visit Provider Obstetrics & Gynecology
DX: N76.0 Acute vaginitis (principal); B96.89 Other specified bacterial agents as the cause of diseases classified elsewhere
CPT/HCPCS: 99213

== ENCOUNTER 2023-01-15 15:18 | Outpatient (REF) | payer OTHER, SELFPAY ==
[2023-01-16 12:21] LABS: CT PCR NOT DETECTED (Not Detect.); NG PCR NOT DETECTED (Not Detect.)
[2023-01-16 15:17] LABS: BV Int Neg Control Negative (Negative); BV Int Pos Control Positive (Positive)
== END 2023-01-15 15:19 | disposition home or self-care (01) ==
LOC: HO.LNP 15:18
PROVIDERS: PCP Pediatrics; Visit Provider Obstetrics & Gynecology
DX: Z11.3 Encounter for screening for infections with a predominantly sexual mode of transmission (principal); N76.0 Acute vaginitis; B96.89 Other specified bacterial agents as the cause of diseases classified elsewhere
CPT/HCPCS: 0353U; 87480; 87510; 87660; 99212

== ENCOUNTER 2023-02-10 08:45 | Outpatient (AMB) | payer OTHER, SELFPAY ==
[2023-02-10 08:47] VITALS: BMI 27.7
--- NOTE | 2023-02-10 08:47 | MHC.OFFVIS ---
Intake Vital Signs 02/10/23 08:47 Height 5 ft 3 in Weight 156 lb 8.451 oz BMI 27.7 Intake Visit Reasons: Follow up COLPO Rvda Master Certified Rv Technician Required: Yes Rvda Master Certified Rv Technician Language: Home Health Occupational Therapist Name: Pippa CONLEY Information Interpreted: non-clinical & clinical Accompanied by: Daughter Allergies Penicillins Allergy (Unknown, Verified 02/10/23 08:48) Unknown-childhood allergy Post menopausal: Yes HPI HPI Comments History of Present Illness Details Presenting post colpo for follow-up. The patient is doing well with no complaints. The pathology showed the following: A. Cervix, 1:00, biopsy: Squamous mucosa and scant detached endocervical glandular epithelium, with focal inflammation and reactive changes; negative for dysplasia. B. Cervix, 4:00, biopsy: Predominantly denuded endocervical glandular mucosa; no squamous component present; negative for dysplasia. C. Cervix, 6:00, biopsy: Squamous and endocervical glandular mucosa with inflammation and reactive changes; negative for dysplasia. D. Cervix, 7:00, biopsy: Predominantly denuded endocervical glandular mucosa with inflammation; no squamous component present; negative for dysplasia. E. Cervix, 12:00, biopsy: Squamous and endocervical glandular mucosa with inflammation and reactive changes; negative for dysplasia. F. Endocervix, curettage: Scant endocervical glandular and squamous epithelium; negative for dysplasia PFSH Medical History History of COVID-19 Anemia Gastroesophageal reflux disease Thyroid activity decreased Surgical History H/O colonoscopy History of tubal ligation History of esophagogastroduodenoscopy (EGD) Social History Are you a primary prompt care rn to a significant other at home: No Do you presently have visiting nurse or other home services: No Patient Tobacco Use Status: Never used Tobacco Female Reproductive History Menstrual Age of Menarche: 14 Review of Systems Const All systems reviewed & are unremarkable except as noted in HPI and below Reports as per HPI and Reports no additional complaints GI Reports no additional complaints Reports no additional complaints Physical Exam Vital Signs: BMI result Body Mass Index 27.7 Assessment & Plan Assessment & Plan (1) ASCUS with positive high risk HPV cervical: Code(s): R87.610 - Atypical squamous cells of undetermined significance on cytologic smear of cervix (ASC-US); R87.810 - Cervical high risk human papillomavirus (HPV) DNA test positive Plan: Discussed with the patient the pathology results of the colposcopy biopsies & endocervical curettage ( negative). Discussed with the patient the sensitivity specificity, positive and negative predictive value in detecting cervical cancer in addition discussed the regression, persistence and progression rates. Recommended co-testing in 12 months, if cytology and or HPV are abnormal will proceed was colposcopy biopsy and endocervical curettage. Instructions given to the patient to schedule a co test appointment in 1 year. All questions answered the patient verbalized understanding. Coding Level of Care Code Est Pt Level 3 (31811) Diagnoses ASCUS with positive high risk HPV cervical R87.610; R87.810
== END 2023-02-10 09:10 | disposition home or self-care (01) ==
PROVIDERS: PCP Pediatrics; Visit Provider Obstetrics & Gynecology
DX: R87.610 Atypical squamous cells of undetermined significance on cytologic smear of cervix (ASC-US) (principal); R87.810 Cervical high risk human papillomavirus (HPV) DNA test positive
CPT/HCPCS: 99213

== ENCOUNTER → 2023-02-10 08:45 | Outpatient (BNVA) | payer OTHER, SELFPAY | PROVIDERS: PCP Pediatrics; Visit Provider Obstetrics & Gynecology | DX: R87.610 Atypical squamous cells of undetermined significance on cytologic smear of cervix (ASC-US) (principal); R87.810 Cervical high risk human papillomavirus (HPV) DNA test positive | CPT/HCPCS: 99212 ==

== ENCOUNTER 2023-07-28 10:00 | Outpatient (REF) | payer OTHER, SELFPAY ==
[2023-07-28 14:16] LABS: MANUAL DIFF FLAG NO
[2023-07-28 14:21] LABS: Basophils Percent Auto 0.9 % (0-2); Eosinophils Absolute Auto 0.1 X10*3/uL (0.0-0.4); Eosinophils Percent Auto 3.4 % (0-4); Hematocrit 38.8 % (37.0-47.0); Hemoglobin 13.1 g/dl (12.0-16.0); Imm Gran Abs Auto 0.01 X10*3/uL (0.00-0.03); Imm Gran Pct Auto 0.3 % (0.0-0.4); Lymphocytes Absolute Auto 1.4 X10*3/uL (1.2-4.9); Lymphocytes Percent Auto 39.5 % (20-40); Mean Corpuscular HGB Conc 33.8 g/dl (31.0-35.0); Mean Corpuscular Hemoglobin 31.1 pg (27.0-33.0); Mean Corpuscular Volume 92.2 fL (80.0-98.0); Monocytes Absolute Auto 0.3 X10*3/uL (0.1-1.2); Monocytes Percent Auto 8.2 % (2-11); Neutrophils Absolute Auto 1.7 x10*3/uL (2.0-8.3); Neutrophils Percent Auto 47.7 % (45-73); Platelet Count 249 X10*3/uL (160-400); Red Blood Count 4.21 X10*6/uL (4.20-5.50); White Blood Count 3.5 X10*3/uL (4.8-10.8)
[2023-07-28 14:58] LABS: Anion Gap 9 (12-20); Blood Urea Nitrogen 11 mg/dL (9-16); Calcium 9.5 mg/dL (8.4-10.2); Carbon Dioxide 28 mmol/L (22-29); Chloride 106 mmol/L (96-108); Cholesterol 184 mg/dL (<200); Estimated Glomerular Filt Rate > 60; Glucose Fasting 89 mg/dL (60-99); HDL Cholesterol 52 mg/dL (>40); LDL Cholesterol Calculated 102 mg/dL (<100); Potassium 3.9 mmol/L (3.3-5.1); Sodium 139 mmol/L (135-145); Triglycerides 154 mg/dL (<150)
[2023-07-28 15:09] LABS: Erythrocyte Sedimentation Rate 14 MM/HR (0-20)
[2023-07-28 15:23] LABS: TSH reflex Free T4 3.23 uIU/mL (0.32-4.0)
== END 2023-07-28 10:01 | disposition home or self-care (01) ==
LOC: HO.CHCLDS 10:00
PROVIDERS: Visit Provider Pediatrics
DX: E03.9 Hypothyroidism, unspecified (principal); M25.552 Pain in left hip; G89.29 Other chronic pain
CPT/HCPCS: 36415; 80048; 80061; 84443; 85025; 85652

== ENCOUNTER 2023-07-29 15:10 | Outpatient (REF) | payer OTHER, SELFPAY ==
--- NOTE | ~2023-07-29 | XR_ITS ---
EXAMINATION: XR HIP, LEFT CLINICAL INFORMATION: Pain COMPARISON: 12/18/2021 TECHNIQUE: Two views of the left hip. FINDINGS: No acute fracture or dislocation. Joint space narrowing and subchondral cystic changes of the left femoral acetabular joint. Soft tissues are unremarkable. XR/XR hip LT min 2V IMPRESSION: Mild degenerative changes of the left hip joint.
== END 2023-07-29 15:11 | disposition home or self-care (01) ==
LOC: HO.XRAY 15:10
PROVIDERS: PCP Pediatrics; Visit Provider Pediatrics
DX: M25.552 Pain in left hip (principal); G89.29 Other chronic pain
CPT/HCPCS: 73502

== ENCOUNTER 2024-04-26 08:02 | Outpatient (REF) | payer OTHER, SELFPAY ==
[2024-04-26 11:36] LABS: HPV 16,18/45 See PAP report
== END 2024-04-26 08:03 | disposition home or self-care (01) ==
LOC: HO.LNP 08:02
PROVIDERS: PCP Pediatrics; Visit Provider Obstetrics & Gynecology
DX: Z01.419 Encounter for gynecological examination (general) (routine) without abnormal findings (principal); R87.610 Atypical squamous cells of undetermined significance on cytologic smear of cervix (ASC-US); R87.810 Cervical high risk human papillomavirus (HPV) DNA test positive
CPT/HCPCS: 87624; 88175; 99396

== ENCOUNTER 2024-04-26 08:02 | Outpatient (AMB) | payer OTHER, SELFPAY ==
--- NOTE | 2024-04-26 08:05 | A.OFFVIS_ITS ---
Vital Signs 04/26/24 08:07 BP 120/70 Intake Visit Reasons: CO-TEST Data Processing Systems Consultant Required: Yes Data Processing Systems Consultant Language: Kraft Digester Operator Services: Data Processing Systems Consultant Present Data Processing Systems Consultant Name: in person Information Interpreted: non-clinical & clinical Area Plant Manager: Area Plant Manager Present (Tierra) Accompanied by: Self / Same As Patient Allergies Penicillins Allergy (Unknown, Verified 04/26/24 08:06) Unknown-childhood allergy HPI Comments Details: Presenting for annual exam. No complaints. Last Pap/HPV was ascus HPV positive in 11/21, this was followed by colpo/biopsy/ECC which came back negative Last Mammogram was BI-RADS 1 in 12/21 Last screening colonoscopy was in 04/22 [facility] Medical History ASCUS with positive high risk HPV cervical History of COVID-19 Anemia Gastroesophageal reflux disease Thyroid activity decreased Surgical History H/O colonoscopy History of tubal ligation History of esophagogastroduodenoscopy (EGD) Social History Are you a primary post acute care nurse practitioner to a significant other at home: No Do you presently have visiting nurse or other home services: No Patient Tobacco Use Status: Never used Tobacco Female Reproductive History Menstrual Age of Menarche: 14 Review of Systems Const All systems reviewed & are unremarkable except as noted in HPI and below Card Reports as per HPI Resp Reports as per HPI GI Reports as per HPI and Reports no additional complaints Reports as per HPI Physical Exam Const General: cooperative, healthy appearing and comfortable Chest Chest palpation & inspection: normal inspection of the chest and normal palpation of entire chest wall Breast/axilla inspection: normal inspection of the breasts and normal inspection of the axillae Breast/axilla palpation: normal palpation of the breasts, normal palpation of the axillae and no axillary lymphadenopathy Resp Effort & Inspection: normal respiratory effort Auscultation: clear to auscultation bilaterally Percussion: percussion normal Cardio Palpation: normal PMI Rate: regular rate Rhythm: regular rhythm Heart sounds: no murmurs and no rubs Peripheral pulses: Peripheral pulses 2+ throughout GI Inspection: Yes normal to inspection Palpation (GI): Soft to palpation, nontender, no guarding, not rigid and No hepatosplenomegaly present Percussion: Yes normal to percussion Auscultation: normal bowel sounds Rectal Exam - Female: deferred General: Yes bladder normal to palpation External Female Exam: No lesion Speculum Exam - Vagina: normal appearance of the vagina, normal palpation, normal vaginal discharge and not erythematous Speculum Exam - Cervix: normal appearance of the cervix and normal palpation Bimanual exam- vagina & uterus: normal bimanual exam, normal palpation, uterine size normal, bladder normal to palpation, consistency normal and normal palpation Bimanual Exam- Adnexa, other: normal adnexae, no masses and no tenderness Assessment & Plan Assessment & Plan (1) Well woman exam: Code(s): Z01.419 - Encounter for gynecological examination (general) (routine) without abnormal findings Category: Medical Plan: Co testing done. Counseled the patient about the recommended dietary allowance of 1200 mg of Calcium & 600 IU of vitamin D. Mammogram ordered. The patient was instructed to perform monthly self-breast exams and schedule annual exam in a year. All questions answered and the patient verbalized understanding. Orders: Orders MM tomosynthesis screening BI Today Z12.31 - Encounter for screening mammogram for malignant neoplasm of breast Coding Level of Care Code Est Pt Prev Care 40-64y(04582) Diagnoses Well woman exam Z01.419
[2024-04-26 08:07] VITALS: BP 120/70
== END 2024-04-26 08:21 | disposition home or self-care (01) ==
PROVIDERS: PCP Pediatrics; Visit Provider Obstetrics & Gynecology
DX: Z01.419 Encounter for gynecological examination (general) (routine) without abnormal findings (principal)
CPT/HCPCS: 99396

== ENCOUNTER 2024-06-07 11:45 | Outpatient (REF) | payer OTHER, SELFPAY ==
--- NOTE | ~2024-06-07 | MM_ITS ---
EXAMINATION: MM SCREENING DIGITAL BREAST TOMOSYNTHESIS, BILATERAL CLINICAL INFORMATION: Screening. Asymptomatic. COMPARISON: Mammography: Comparison is made with available priors TECHNIQUE: Digital breast mammography with tomosynthesis is performed in both the craniocaudal and mediolateral oblique views along with computer-aided detection (CAD). FINDINGS: The breasts are heterogeneously dense, which may obscure small masses (ACR BI-RADS breast composition Category c). There are no significant masses, abnormal calcifications, or other abnormalities. MM/MM tomosynthesis screening BI IMPRESSION: No mammographic evidence of malignancy. ASSESSMENT: BI-RADS BI-RADS 1 - Negative RECOMMENDATION: Routine annual mammography screening. 1 year F/U This examination should not preclude the clinical evaluation of a suspicious palpable abnormality. This patient's information was entered into a reminder system with a target due date for their next mammogram. Electronically signed by: Samantha Burrows DO 06/13/2024 04:07 PM TARA
== END 2024-06-07 11:46 | disposition home or self-care (01) ==
LOC: HO.MAMMO 11:45
PROVIDERS: PCP Pediatrics; Visit Provider Obstetrics & Gynecology
DX: Z12.31 Encounter for screening mammogram for malignant neoplasm of breast (principal)
CPT/HCPCS: 77063; 77067

== ENCOUNTER → 2024-06-07 12:15 | Outpatient (BNV) | payer OTHER, SELFPAY | PROVIDERS: PCP Pediatrics; Visit Provider Internal Medicine | DX: Z12.31 Encounter for screening mammogram for malignant neoplasm of breast (principal) | CPT/HCPCS: 77063; 77067 ==

== ENCOUNTER 2024-09-20 10:09 | Outpatient (REF) | payer OTHER, SELFPAY ==
--- OUTSIDE RECORDS SUMMARY | 2024-09-20 11:35 | XMS_ITS | Encounter Summary ---
Author Organization [employer] Address [address] [place] [address] Care Team Providers Care Patient Safety Officer Name Role Phone Hallie Rosario MD Primary Care Provider [phone] Reason for Visit * Reason Onset Date Comments pcp other 09/20/2024 Encounter Details Date Type Department Care Team ([facility] Contact Info) Description 09/20/[address] [facility] MED & PEDS [address] [place] [address] aHllie Rosario MD [address] [place] [address] pcp other Social History Tobacco Use Types Packs/Day Years Used Date Smoking Tobacco: Never Passive Smoke Exposure: Never Smokeless Tobacco: Never Depression Answer Date Recorded Patient Health Questionnaire-9 Score 4 09/20/2024 Patient Health Questionnaire-9 Score 4 09/20/2024 Last PHQ-9: Questionnaire Data Not on file 0 09/20/2024 Housing Stability Answer Date Recorded What is your housing situation today? I have saira mata 09/09/[address] you li ve. Do you have problems with any of the following? None of the above 09/09/2024 Food Insecurity Answer Date Recorded Within the past 12 months, y ou worried that your food would run out before you got money to buy more: Sometimes True 2024 Within the past 12 months,th e food you bought just didn't last and you didn't have enough money to get more: Sometimes True 09/09/2024 Transportation Answer Date Recorded In the past 12 months, has l ack of transportation kept you from medical appts, meetings, work or from getting things needed for daily living? Yes, it has kept me from medical appointments or getting medications. 09/09/2024 Utilities Answer Date Recorded In the past 12 months, has t he electric, gas, oil or water company threatened to shut off services in your home? No 09/09/2024 Depression Answer Date Recorded Patient Health Questionnaire-2 Score 2 09/20/2024 Internet Access Answer Date Recorded Internet Access Q1 Yes 09/09/2024 Internet Access Q2 Not on file 09/09/2024 Comments No Sex and Gender Information Value Date Recorded Sex Assigned at Female 03/31/2022 10:18 AM EDT Legal Sex Female 10:18 AM EDT Gender Identity Female 03/31/2022 10:18 AM EDT Sexual Orientation Straight 03/31/2022 10 :18 AM EDT documented as of this encounter Miscellaneous Notes * Telephone Encounter - Kristal Recio - 09/20/2024 8:54 AM EDT Pt aware at check in , insurance has pcp other. Pt aware to call insurance to update pcp documented in this encounter Plan of Treatment Upcoming Encounters Date Type Department Care Team (Late st Contact Info) Description 11/29/2024 9:45 AM EDT Office Visit [facility] MED & PEDS [address] [place] [address] Hallie Rosario MD [address] [place] [address] documented as of this encounter Visit Diagnoses Not on filedocumented in this encounter Additional Health Concerns Assessment Noted Time PHQ-9 Depression Total Score: 4 09/21/19 25 9:43 AM EDT documented as of this encounter Care Teams Patient Safety Officer Relationship Specialty Start Date End Date Hallie Rosario MD [address] [place] [address] PCP - General Family Medicine 10/18/15 documented as of this encounter
--- OUTSIDE RECORDS SUMMARY | 2024-09-20 11:35 | XMS_ITS | Encounter Summary ---
Author Organization [employer] [facility] Address [address] [place] [address] [address] [place] [address] Care Team Providers Care Bag Turner Name Role Phone Hallie Rosario MD Primary Care Provider [phone] Encounter Details Date Type Department Care Team (Latest Contact Info) Description 05/04/2019 Abstract [facility] CONVERSIONS Dental, Provider, DDS Social History Tobacco Use Types Packs/Day Years Used Date Smoking Tobacco: Never Assessed Comments Unknown Sex and Gender Information Value Date Recorded Sex Assigned at Female 03/31/2022 10:18 AM EDT Legal Sex Female 10:18 AM EDT Gender Identity Female 03/31/2022 10:18 AM EDT Sexual Orientation Straight 03/31/2022 10 :18 AM EDT documented as of this encounter Plan of Treatment Upcoming Encounters Date Type Department Care Team (Late st Contact Info) Description 11/29/2024 9:45 AM EDT Office Visit [facility] MED & PEDS [address] [place] [address] Hallie Rosario MD [address] [place] [address] documented as of this encounter Visit Diagnoses Not on filedocumented in this encounter Care Teams Bag Turner Relationship Specialty Start Date End Date Hallie Rosario MD [address] [place] [address] PCP - General Family Medicine 10/18/15 documented as of this encounter
--- OUTSIDE RECORDS SUMMARY | 2024-09-20 11:35 | XMS_ITS | Encounter Summary ---
Author Organization [employer] Address [address] [place] [address] Care Team Providers Care Enterprise Account Manager Name Role Phone Hallie Rosario MD Primary Care Provider [phone] Encounter Details Date Type Department Care Team (Late st Contact Info) Description 07/07/2023 Orders Only [facility] MEDICINE [address] [place], [place] [phone] Isha Santos NP [address] [place], [place] [phone] Back pain, unspecified back location, unspecified back pain laterality, unspecified chronicity (Primary Dx) Social History Tobacco Use Types Packs/Day Years Used Date Smoking Tobacco: Never Passive Smoke Exposure: Never Smokeless Tobacco: Never Depression Answer Date Recorded Patient Health Questionnaire-9 Score 23 06/06/2022 Housing Stability Answer Date Recorded What is your housing situation today? I have saira mata 04/06/[address] you li ve. Do you have problems with any of the following? None of the above 04/06/2023 Food Insecurity Answer Date Recorded Within the past 12 months, y ou worried that your food would run out before you got money to buy more: Sometimes True 2022 Within the past 12 months,th e food you bought just didn't last and you didn't have enough money to get more: Never True 04/06/2023 Transportation Answer Date Recorded In the past 12 months, has l ack of transportation kept you from medical appts, meetings, work or from getting things needed for daily living? No 04/06/2023 Utilities Answer Date Recorded In the past 12 months, has t he [employer], gas, oil or water company threatened to shut off services in your home? No 04/06/2023 Depression Answer Date Recorded Patient Health Questionnaire-2 Score 5 06/06/2022 Comments No Sex and Gender Information Value [...] Description 11/29/2024 9:45 AM EDT Office Visit [facility] MED & PEDS [address] [place] [address] Hallie Rosario MD [address] [place] [address] documented as of this encounter Visit Diagnoses Diagnosis Back pain, unspecified back location, unspecified back pain laterality, unspecified chronicity- Primary documented in this encounter Additional Health Concerns Assessment Noted Time PHQ-9 Depression Total Score: 23 023 9:33 AM EST documented as of this encounter Care Teams Enterprise Account Manager Relationship Specialty Start Date End Date Hallie Rosario MD [address] [place] [address] PCP - General Family Medicine 10/18/15 documented as of this encounter
--- OUTSIDE RECORDS SUMMARY | 2024-09-20 11:35 | XMS_ITS | Clinical Summary ---
Author Organization [employer] Address [address] [facility] [address] [place] [address] Care Team Providers Care Stamp Clerk Name Role Phone Hallie Rosario MD Primary Care Provider [phone] Allergies Active Allergy Reactions Criticality Noted Date Comments Penicillins 02/17/2013 Medications Diclofenac Sodium (Voltaren) 1 % gel apply (2G) by topical route 4 times every day to the affected area(s) 019 Active ergocalciferol (Vitamin D2) 1.25 MG (22898 UT) capsuleIndication s:Vitamin D deficiency Take 1 capsule (1.25 mg) by mouth 1 (one) time per week. 5 capsule 2 023 Active fluticasone (Flonase) 50 MCG/ACT nasal spray ADMINISTER 1 TO 2 SPRAY INTO EACH NOSTRIL IN THE MORNING 48 mL 11 024 Active famotidine (Pepcid) 20 MG tablet Take 1 tablet (20 mg) by mouth 2 times daily. 60 tablet 3 025 2025 Active levothyroxine (Synthroid, Levoxyl) 50 MCG tabletIndications :Acquired hypothyroidism Take 1 tablet (50 mcg) by mouth before breakfast. 30 tablet 2 025 Active famotidine (Pepcid) 20 MG tablet Take 1 tablet by mouth in the morning. 021 2024 Discontinued sertraline (Zoloft) 50 MG tabletIndications :Anxiety Take 1 tablet orally daily 90 tablet 1 023 2024 Discontinued(T herapy completed) hydrocortisone 2.5 % creamIndications: Dermatitis Apply a pea size amount to affected area two times daily for week. 28 g 024 2024 Discontinued(T herapy completed) levothyroxine (Synthroid, Levoxyl) 50 MCG tabletIndications :Acquired hypothyroidism TAKE 1 TABLET BY MOUTH EVERY DAY IN THE MORNING 30 MINUTES BEFORE BREAKFAST 90 tablet 1 024 2024 Discontinued(R eorder (will not trigger notification to Pharmacy)) Active Problems Problem Noted Date Diagnosed Date Gastroesophageal reflux disease 09/20/2024 Dermatitis 07/07/2023 Assessment & Plan (07/07/2023 10:22 AM EST): -may be eczema -will trial hydrocortisone 2.5 topical cream for 7 days -will consider diagnostic imaging if no improvement or symptoms worsen Macromastia 07/07/2023 Assessment & Plan (07/07/2023 10:21 AM EST): -referral to plastic surgery placed -patient informed of the potential need to undergo physical therapy prior to surgery approval Menopausal problem 05/14/2018 Hidradenitis 04/11/2016 Anemia 04/19/2014 Hypothyroidism 10/18/2012 Sprain of back 10/18/2012 Allergic rhinitis 11/21/2011 Anxiety 11/21/2011 Vitamin D deficiency 11/21/2011 Encounters Date Type Department Care Team Description 09/20/2024 9:15 AM EDT Office Visit [facility] [address] [place] [address] Hallie Rosario MD Vitamin D deficiency (Primary Dx); Acquired hypothyroidism; Dietary counseling; Exercise counseling; Encounter for immunization; Routine general medical examination at a health care facility; Anxiety; Elevated BP without diagnosis of hypertension; Gastroesophageal reflux disease, unspecified whether esophagitis present 09/20/2024 Telephone [facility] [address] [place] [address] Hallie Rosario MD pcp other 09/20/2024 Travel 09/09/2024 Patient Outreach [facility] [address] [place] [address] Hallie Rosario MD Pre-visit Planning (SDOH screening positive and Tobacco screening negative) from Last 3 Months Immunizations Name Administration Dates Next Due Influenza injectable quadriv alent IIV4 with preservative 04/08/2019,02/22/2016 Influenza injectable quadrivalent preservative f ree 05/14/2018 Influenza, IIV3, injectable 04/04/2014 Influenza, Split (incl. purified surface antigen ) 02/17/2013,02/26/2012 Pfizer Covid-19 Vaccine 12+ 07/31/2021 Pneumococcal Conjugate PCV 20 09/20/2024 Tdap 05/05/2013 Social History Tobacco Use Types Packs/Day Years Used Date Smoking Tobacco: Never Passive Smoke Exposure: Never Smokeless Tobacco: Never Tobacco Cessation:Counseling Given: Not Answered Depression Answer Date Recorded Patient Health Questionnaire-9 [...] Orientation Straight 03/31/2022 10 :18 AM EDT Last Filed Vital Signs Vital Sign Reading Time Taken Comments Blood Pressure 124/80 09/20/2024 9:13 AM EDT Pulse 64 09/20/2024 9:13 AM EDT Temperature 37.1 ??C (98.7 ??F) 09/20/2024 9:13 AM ED T Respiratory Rate 16 09/20/2024 9:13 AM EDT Oxygen Saturation 98% 07/28/2023 9:31 AM EST Inhaled Oxygen Concentration - - Weight 75.8 kg (167 lb) 09/20/2024 9:13 AM EDT Height 160 cm (5' 3 ) 09/20/2024 9:13 AM EDT Body Mass Index 29.58 09/20/2024 9:13 AM EDT Plan of Treatment Upcoming Encounters Date Type Department Care Team (Late st Contact Info) Description 11/29/2024 9:45 AM EDT Office Visit [facility] [address] [place] [address] Hallie Rosario MD [address] [place] [address] Health Maintenance Due Date Last Done Comments CT Colonography 1971 FIT DNA/Cologuard 1971 FIT 1971 HIV Screening 1970 Sigmoidoscopy 1971 Hepatitis C Screening 1989 Hepatitis B Vaccines (1 of 3 - 19+ 3-dose series) 1990 Zoster Vaccines (1 of 2) 2021 FOBT 2023 2022 DTaP/Tdap/Td Vaccines (2 - Td or Tdap) 05/05/2023 05/05/2013 COVID-19 Vaccine ( season) 2024 07/31/2021, 02/07/2021, 01/11/2021 Influenza Vaccine (#1) 2024 , 04/08/2019, 05/14/2018, Additional history exists SDOH Screening 09/09/2025 09/09/2024 Alcohol/Substance Use Screening 09/20/2025 09/20/2024 Depression Screening 09/20/2025 09/20/2024, 09/21/19 Tobacco Screening 09/20/2025 09/20/2024 Mammogram 06/07/2026 06/07/2024, 0706/2022, 11/13/2021, Additional history exists Cervical Cancer Screening 04/26/2027 HPV/Cotest 04/26/2027 11/25/2022, 08/25/2017 Pap Smear 04/26/2027 04/26/2024, 11/25/2022 Colonoscopy 2032 2022, 2022 Colorectal Cancer Screening 2032 RSV Patients and Patients Aged 60 years or older (1 - 1-dose 75+ series) 2046 Pneumococcal Vaccine: 50+ Years Completed 09/20/2024 HIB Vaccines Aged Out No longer eligi ble based on patient's age to complete this topic HPV Vaccines Aged Out No longer eligi ble based on patient's age to complete this topic Hepatitis A Vaccines Aged Out No long er eligible based on patient's age to complete this topic IPV Vaccines Aged Out No longer eligi ble based on patient's age to complete this topic Meningococcal Vaccine Aged Out No allison porter eligible based on patient's age to complete this topic RSV under 20 months Aged Out No longe r eligible based on patient's age to complete this topic Rotavirus Vaccines Aged Out No longer eligible based on patient's age to complete this topic Procedures Procedure Name Priority Date/Time Associated Diagnosis Comments BI MAMMOGRAM SCREENING TOMOSYNTHESIS BILATERAL Routine 06/07/2024 11:50 AM EST PAP SMEAR Routine 04/26/2024 8:22 AM EST IMAGE-GUIDED PAP W/AGE BASED SCR PROTOCOLS Routine 11/25/2022 10:23 AM EDT Vitamin D deficiency Anxiety Acquired hypothyroidism Pelvic pain HM IFOBT Routine 2022 4:55 PM EST HM COLONOSCOPY Routine 2022 4:55 PM EST from Last 3 Months or Most Recently Relevant to Health Maintenance Results * BI Mammogram Screening Tomosynthesis Bilateral (06/07/2024 11:50 AM EST) Anatomical Region Laterality Modality Breast Bilateral Mammography 06/07/2024 11:5 0 AM EST Narrative 06/13/2024 4:10 PM EST ? [facility] ? [address] ?[place], [place] [address] ? Mammography Report ? Signed ? Patient: Yoana Powell ?MR# ?? : [id number] ? : 1970 ?Acct:[id number] ? Age/Sex: 54 / F ?ADM Date: 06/07/24 ? Loc: HO.MAMMO ? Attending Dr: Josef Kimble MD ? Ordering Physician: Josef Kimble MD ?Results: 1Negativ ?? e ? Date of Service: 06/07/24 ?Follow Up: 1 Year From Orig ?? inal Mammogram ? Procedure(s): MM tomosynthesis screening BI ?? Accession Number(s): [id number] ? cc: Hallie Rosario MD; Josef Kimble MD ? EXAMINATION: ?? MM SCREENING DIGITAL BREAST TOMOSYNTHESIS, BILATERAL ? CLINICAL INFORMATION: ? Screening. Asymptomatic. ? COMPARISON: ?? Mammography: Comparison is made with available priors ? TECHNIQUE: ?? Digital breast mammography with tomosynthesis is performed in both the ?? craniocaudal and mediolateral oblique views along with computer-aided ?? detection (CAD). ? FINDINGS: ?? The breasts are heterogeneously dense, which may obscure small masses ?? (ACR BI-RADS breast composition Category c). ? There are no significant masses, abnormal calcifications, or other ?? abnormalities. ? MM/MM tomosynthesis screening BI ?? IMPRESSION: ?? No mammographic evidence of malignancy. ? ASSESSMENT: ? BI-RADS BI-RADS 1 - Negative ? RECOMMENDATION: ?? Routine annual mammography screening. ? 1 year F/U ? This examination should not preclude the clinical evaluation of a ?? suspicious palpable abnormality. ? This patient's information was entered into a reminder system with a ?? target due date for their next mammogram. ? Electronically signed by: ??Samantha Burrows DO ??06/13/2024 04:07 PM EST ?? RP ? Dictated By: ?Samantha Burrows DO ? Signed By: ?<Electronically signed by Samantha Burrows, DO in OV> ? 06/13/24 1607 ? DD/ 1150 ? TD/TT: 06/07/24 1202 ? Deputy Clerk Of Court: ? Procedure Note Donraj, Image - 06/13/2024 [facility] [address] [place] [address] Mammography Report Signed Patient: Yoana Powell AMR# : [id number] : 1970Acct:[id number] Age/Sex: 54 / FADM Date: 06/07/24 Loc: HO.MAMMO Attending Dr: Josef Kimble MD Ordering Physician: Josef Kimble MDResults: 1Negativ e Date of Service: 06/07/24Follow Up: 1 Year From Orig inal Mammogram Procedure(s): MM tomosynthesis screening BI Accession Number(s): [id number] cc: Hallie Rosario MD; Josef Kimble MD EXAMINATION: MM SCREENING DIGITAL BREAST TOMOSYNTHESIS, BILATERAL CLINICAL INFORMATION: Screening. Asymptomatic. COMPARISON: Mammography: Comparison is made with available priors TECHNIQUE: Digital breast mammography with tomosynthesis is performed in both the craniocaudal and mediolateral oblique views along with computer-aided detection (CAD). FINDINGS: The breasts are heterogeneously dense, which may obscure small masses (ACR BI-RADS breast composition Category c). There are no significant masses, abnormal calcifications, or other abnormalities. MM/MM tomosynthesis screening BI IMPRESSION: No mammographic evidence of malignancy. ASSESSMENT: BI-RADS BI-RADS 1 - Negative RECOMMENDATION: Routine annual mammography screening. 1 year F/U This examination should not preclude the clinical evaluation of a suspicious palpable abnormality. This patient's information was entered into a reminder system with a target due date for their next mammogram. Electronically signed by: Samantha Burrows DO 06/13/2024 04:07 PM EST Dictated By: Samantha Burrows DO Signed By: <Electronically signed by Samantha Burrows DO in OV> 06/13/24 1607 DD/ 1150 TD/TT: 06/07/[address]: [facility] External Provider IMG BI PROCEDURES Final Result * Pap Smear (04/26/2024 8:22 AM EST) 04/26/2024 8:22 AM EST 04/26/2024 11:25 AM EST [facility] - 05/03/2024 10:21 AM EST ----- ------- Name: Yoana Powell ? Age/Sex: 53/F ? : 1970 Unit#: [id number] ?? Attend Dr: Josef Kimble MD ?Re04/26/24 ?Status: DEP REF ? Location: HO.LNP ?Disch: ? ----- ------- SPEC : [id number] ?RECD: 04/26/24 ? STATUS: ??SOUT ? REQ NUM: [id number] ? GUERDA: 04/26/24 ? SUBM DR: Josef Kimble MD ? ENTERED: ??04/26/24 ?SP TYPE: Pap Smr ?OTHR DR: Hallie Rosario MD ? ORDERED: ??Pap Smear ? Interpretation ?? Satisfactory for evaluation. ?? Negative for intraepithelial lesion or malignancy. ?? Mild inflammation. ? HPV High Risk: ??Negative ? HPV Genotyping 16: ??Negative ?? HPV Genotyping 18: ??Negative ?Clinical Information LMP: Postmenopausal Previous PAP test: 10/2022, ASCUS, HPV + ? Material Received ?? ThinPrep-Cervical Copies To: ?? Hallie Rosario MD ?? [facility] ?? [address] ?? [place] [address] ?? [phone] ?? Josef Kimble MD ?? [facility] ?? [address] ?? [place] [address] ?? [phone] ----- ------- Signed (signature on file) BRITNI Wooten (ASCP) 05/03/24 1021 ? ----- ------- ? END OF REPORT ? us Generic External Data Provider LAB CYTOLOGY RAY NAVAS Final Result [facility] [address] [place] [address] [phone] * (ABNORMAL) Image-Guided Pap with Age-Based Screening Protocols (11/25/2022 10:23 AM EDT) Comment [facility] Comment: This order for age-based cervical cancer and STI screening follows ACOG guidelines(PB 168, 140, FEA807). See individual assays for performing site location. Clinical Information: None given [facility] LMP: NONE GIVEN [facility] Prev. PAP: NONE GIVEN [facility] Prev. BX: NONE GIVEN [facility] SOURCE: None given [facility] Statement Of Adequacy: [facility] Comment: Satisfactory for evaluation. Endocervical/transformation zone component present. General Categorization: Cytology Results: Epithelial Cell Abnormality(A) [facility] Interpretation/ Result: Atypical Squamous Cells of Undetermined Significance (ASC-US)(A) [facility] COMMENT: This Pap test has been evaluated with computer assisted technology. [facility] Cytotechnologis t: [facility] Comment: [facility], CT(ASCP) CT screening location: [address] ??[address] PATHOLOGIST: [facility] Comment: Jazzmine Calhoun D.O. Board Certified in Anatomic, Clinical and Cytopathology (electronic signature) Consulting Pathologist [facility] [address] [place] [address] (Always Message) [facility] Comment: EXPLANATORY NOTE: The Pap is a screening test for cervical cancer. It is not a diagnostic test and is subject to false negative and false positive results. It is most reliable when a satisfactory sample, regularly obtained, is submitted with relevant clinical findings and history, and when the Pap result is evaluated along with historic and current clinical information. HPV nRNA E6/E7 Detected(A) Not Detected [facility] Comment: Methodology: Scrubbing Machine Operator-Mediated Amplification This assay detects E6/E7 viral messenger RNA (mRNA) from 14 high-risk HPV types (16,18,31,33,35,39,45,51,52,56,58,59,66,68). Cervical sources are required for HPV testing. If a vaginal source from a patient who has had a total hysterectomy with removal of cervix was submitted, please contact the testing laboratory for alternative testing options. For additional information, please refer to http://education.[employer]/faq/SYJ671q7 (This link if provided for information/ educational purposes only.) Cervix 11/25/2022 10:2 3 AM EDT 11/26/2022 2:57 AM EDT Hallie Rosario MD LAB BLOOD ORDERABLES Final Re sult [facility] [address], [place] [address] [facility] [address] [place] [address] * HM iFOBT (2022 4:55 PM EST) Stool Historical Provider POINT OF CARE TEST ENTER/ EDIT ORDERABLES Final Result * Colonoscopy (2022 4:55 PM EST) Historical Provider HEALTH MAINTENANCE Final Result from Last 3 Months or Most Recently Relevant to Health Maintenance [place] [address] Care Teams Stamp Clerk Relationship Specialty Start Date End Date Hallie Rosario MD [address] [place] [id number] PCP - General Family Medicine 10/18/15
--- OUTSIDE RECORDS SUMMARY | 2024-09-20 11:35 | XMS_ITS | Encounter Summary ---
Author Organization [employer] Address [address] [facility] 7t [place] [address] Care Team Providers Care Cracker Sprayer Name Role Phone Hallie Rosario MD Primary Care Provider [phone] Reason for Referral * Consultation (Routine) - Authorized Specialty Diagnoses / Procedures Referred By Sahara pate Referred To Contact Gastroenterology Diagnoses Gastroesophageal reflux disease, unspecified whether esophagitis present Hallie Rosario MD [address] [place], [place] Phone: tel: fax: Eleanor Patrick MD [address] [place] [address] Phone: tel: fax: Referral ID Status Reason Start Date Expiration Date Visits Requested Visits Authorized [id number] Authorized Specialty Services Required 09/20/2024 09/20/2025 1 1 * Consultation (Routine) - Authorized Specialty Diagnoses / Procedures Referred By Sahara pate Referred To Contact Optometry Diagnoses Routine general medical examination at a health care facility Hallie Rosario MD [address] [place] [address] Phone: tel: fax: [facility] OPTOMETRY [address] [place] [address] Phone: tel: fax: Referral ID Status Reason Start Date Expiration Date Visits Requested Visits Authorized [id number] Authorized Consult and Treat 09/20/2024 09/20/2025 1 1 * Consultation (Routine) - Authorized Specialty Diagnoses / Procedures Referred By Sahara t Referred To Contact Dentist / Dentistry Diagnoses Routine general medical examination at a health care facility Hallie Rosario MD [address] [place] [address] Phone: tel: fax: [facility] ADULT DENTAL [address] [place] [address] Phone: tel: fax: Referral ID Status Reason Start Date Expiration Date Visits Requested Visits Authorized [id number] Authorized Consult and Treat 09/20/2024 09/20/2025 1 1 Encounter Details Date Type Department Care Team (Late st Contact Info) Description 09/20/2024 9:15 AM EDT Office Visit [facility] MED & PEDS [address] [place] [address] Hallie Rosario MD [address] [place] [address] Vitamin D deficiency (Primary Dx); Acquired hypothyroidism; Dietary counseling; Exercise counseling; Encounter for immunization; Routine general medical examination at a health care facility; Anxiety; Elevated BP without diagnosis of hypertension; Gastroesophageal reflux disease, unspecified whether esophagitis present Social History Tobacco Use Types Packs/Day Years [...] the past 12 months, has t he [employer], gas, oil or water company threatened to [...] AM EDT documented as of this encounter Last Filed Vital Signs Vital Sign Reading Time Taken Comments Blood Pressure 124/80 09/20/2024 9:13 AM EDT Pulse 64 09/20/2024 9:13 AM EDT Temperature 37.1 ??C (98.7 ??F) 09/20/2024 9:13 AM ED T Respiratory Rate 16 09/20/2024 9:13 AM EDT Oxygen Saturation - - Inhaled Oxygen Concentration - - Weight 75.8 kg (167 lb) 09/20/2024 9:13 AM EDT Height 160 cm (5' 3 ) 09/20/2024 9:13 AM EDT Body Mass Index 29.58 09/20/2024 9:13 AM EDT documented in this encounter Progress Notes * Hallie Rosario MD - 09/20/2024 9:15 AM EDT Subjective Patient ID: Yoana Martinez is a 54 y.o. female who presents for her PE visit. Yoana is a 54-year-old female patient known to me here for her physical visit. She feels overall well though has gained some weight. States her daughter is now living with her and it has helped her anxiety level calm down. She stopped taking her antidepressant and does not feel like she needs it anymore. States her blood pressure was very elevated at work on 1 occasion. States plans to get a blood pressure kit so she can check it at home. Denies eating with a lot of salt. Stopped taking her [place]othy[place]. She is up-to-date with her mammogram which was normal in June 2024, colonoscopy and Pap smear also are up-to-date. Complaining of chronic GERD. Takes Gaviscon as needed with some relief. Had an upper and lower endoscopy done at [facility] years ago which were apparently normal. States her sister was just diagnosed with possible stomach cancer for which she is concerned. Denies blood in stool, weight loss Review of Systems Constitutional: Negative for activity change, chills, fever and unexpected weight change. Respiratory: Negative for cough, shortness of breath and wheezing. Cardiovascular: Negative for chest pain, palpitations and leg swelling. Gastrointestinal: Negative for abdominal distention, abdominal pain, anal bleeding, blood in stool,constipation, diarrhea, nausea, rectal pain and vomiting. Endocrine: Negative for polydipsia and polyuria. Genitourinary: Negative for decreased urine volume, difficulty urinating, dysuria and hematuria. Musculoskeletal: Negative for arthralgias and gait problem. Skin: Negative for color change and rash. Neurological: Negative for dizziness and headaches. Hematological: Negative for adenopathy. Psychiatric/Behavioral: Negative for dysphoric mood, hallucinations, sleep disturbance and suicidalideas. The patient is not nervous/anxious. Objective BP 124/80 (BP Location: Left arm, Patient Position: Sitting, BP Cuff Size: Adult) Pulse64 Temp 98.7 ??F (37.1 ??C) (Oral) Resp 16 Ht 5' 3 (1.6 m) Wt 167 lb (75.8 kg) BMI 29.58kg/m?? Physical Exam Vitals reviewed. Constitutional: General: She is not in acute distress. Appearance: Normal appearance. She is not ill-appearing. HENT: Head: Normocephalic. Right Ear: Tympanic membrane and ear canal normal. Left Ear: Tympanic membrane and ear canal normal. Nose: Nose normal. Mouth/Throat: Mouth: Mucous membranes are moist. Pharynx: No oropharyngeal exudate or posterior oropharyngeal erythema. Eyes: Extraocular Movements: Extraocular movements intact. Conjunctiva/sclera: Conjunctivae normal. Pupils: Pupils are equal, round, and reactive to light. Cardiovascular: Rate and Rhythm: Normal rate and regular rhythm. Pulses: Normal pulses. Heart sounds: Normal heart sounds. Pulmonary: Effort: Pulmonary effort is normal. No respiratory distress. Breath sounds: Normal breath sounds. Abdominal: General: There is no distension. Palpations: Abdomen is soft. There is no mass. Tenderness: There is no abdominal tenderness. Musculoskeletal: General: Normal range of motion. Cervical back: Normal range of motion. Skin: General: Skin is warm. Capillary Refill: Capillary refill takes less than 2 seconds. Neurological: General: No focal deficit present. Mental Status: She is alert and oriented to person, place, and time. Psychiatric: Mood and Affect: Mood normal. Behavior: Behavior normal. Thought Content: Thought content normal. Judgment: Judgment normal. Assessment/Plan Diagnoses and all orders for this visit: Vitamin D deficiency Comments: Recheck levels of vitamin D and replace if needed. Orders: - Basic Metabolic Panel, Fasting; Future - CBC auto differential; Future - Hepatic Function Panel; Future - Vitamin D, 25-Hydroxy, Total, Immunoassay; Future - TSH W/Reflex to FT4; Future - Lipid Panel, Standard; Future Acquired hypothyroidism Comments: Patient is off her levothyroxine for which her levels of thyroid function test should be abnormal today. Refilled her 50 mcg daily , adjust dose if needed. Orders: - Basic Metabolic Panel, Fasting; Future - CBC auto differential; Future - Hepatic Function Panel; Future - Vitamin D, 25-Hydroxy, Total, Immunoassay; Future - TSH W/Reflex to FT4; Future - Lipid Panel, Standard; Future - levothyroxine (Synthroid, Levoxyl) 50 MCG tablet; Take 1 tablet (50 mcg) by mouth before breakfast. Dietary counseling Exercise counseling Encounter for immunization Comments: PCV 20 vaccine received today. Should get shingles vaccine as well at her [facility]. Orders: - PCV-20 VACCINE 6 wks + Routine general medical examination at a health care facility Comments: Marjan will have fasting labs drawn today, PCV 20 received. Pap, mammo and colonoscopy up-to-date. Eye exam and dental exam referral done today. Orders: - PCV-20 VACCINE 6 wks + - Referral to [facility] Dental; Future - Referral to [facility] Eye Care; Future Anxiety Comments: Stable currently on no medications. Reassess at next visit in 2 months. Elevated BP without diagnosis of hypertension Comments: Patient had 1 value that was very elevated at work. BP log sheet given. Low-salt diet recommended return to clinic in 2 months with me. Gastroesophageal reflux disease, unspecified whether esophagitis present Comments: Famotidine 20 mg twice daily started today as she does not want to be on a PPI. Referral to GI donedue to family history of stomach cancer. Orders: - Referral to Gastroenterology; Future Other orders - famotidine (Pepcid) 20 MG tablet; Take 1 tablet (20 mg) by mouth 2 times daily. documented in this encounter Plan of Treatment Upcoming Encounters Date Type Department Care Team ([facility] st Contact Info) Description 11/29/2024 9:45 AM EDT Office Visit [facility] MED & PEDS [address] [place] [address] Hallie Rosario MD [address] [place] [address] Scheduled Orders Name Type Priority Associated Diagnoses Orde r Schedule Basic Metabolic Panel, Fasting Lab Routine Vitamin D deficiency Acquired hypothyroidism Expected: 09/20/2024 (Approximate), Expires: 09/20/2025 CBC auto differential Lab Routine Vitamin D deficiency Acquired hypothyroidism Expected: 09/20/2024 (Approximate), Expires: 09/20/2025 Hepatic Function Panel Lab Routine Vitamin D deficiency Acquired hypothyroidism Expected: 09/20/2024 (Approximate), Expires: 09/20/2025 Vitamin D, 25-Hydroxy, Total, Immunoassay Lab Routine Vitamin D deficiency Acquired hypothyroidism Expected: 09/20/2024 (Approximate), Expires: 09/20/2025 TSH W/Reflex to FT4 Lab Routine Vitamin D deficiency Acquired hypothyroidism Expected: 09/20/2024 (Approximate), Expires: 09/20/2025 Lipid Panel, Standard Lab Routine Vitamin D deficiency Acquired hypothyroidism Expected: 09/20/2024 (Approximate), Expires: 09/20/2025 Scheduled Referrals Name Type Priority Associated Diagnoses Order Schedule Referral to [facility] Dental Outpatient Referral Routine Routine general medical examination at a health care facility Expected: 09/20/2024 (Approximate), Expires: 09/20/2025 Referral to [facility] Eye Care Outpatient Referral Routine Routine general medical examination at a health care facility Expected: 09/20/2024 (Approximate), Expires: 09/20/2025 Referral to Gastroenterology Outpatient Referral Routine Gastroesophageal reflux disease, unspecified whether esophagitis present Expected: 09/20/2024 (Approximate), Expires: 09/20/2025 documented as of this encounter Visit Diagnoses Diagnosis Vitamin D deficiency- Primary Acquired hypothyroidism Unspecified hypothyroidism Dietary counseling Dietary surveillance and counseling Exercise counseling Encounter for immunization Routine general medical examination at a health care facility Anxiety Anxiety state, unspecified Elevated BP without diagnosis of hypertension Gastroesophageal reflux disease, unspecified whether esophagitis present documented in this encounter Additional Health Concerns Assessment Noted Time PHQ-9 Depression Total Score: 4 09/21/19 25 9:43 AM EDT documented as of this encounter Care Teams Cracker Sprayer Relationship Specialty Start Date End Date Hallie Rosario MD [address] [place] [address] PCP - General Family Medicine 10/18/15 documented as of this encounter
--- OUTSIDE RECORDS SUMMARY | 2024-09-20 11:35 | XMS_ITS | Encounter Summary ---
Author Organization [employer] Address [address] [facility] 7t [place] [address] Care Team Providers Care Expediter Service Order Name Role Phone Hallie Rosario MD Primary Care Provider [phone] Reason for Visit * Reason Comments Med Refill Encounter Details Date Type Department Care Team ([facility] st Contact Info) Description 06/22/2023 Refill [facility] MED & PEDS [address] [place], [place] [phone] Hallie Rosario MD [address] [place] [address] Vitamin D deficiency Social History Tobacco Use Types Packs/Day Years [...] Patient Health Questionnaire-2 Score 5 06/06/2022 Comments Unknown Sex and Gender Information Value Date Recorded Sex Assigned at Female 03/31/2022 10:18 AM EDT Legal Sex Female 10:18 AM EDT Gender Identity Female 03/31/2022 10:18 AM EDT Sexual Orientation Straight 03/31/2022 10 :18 AM EDT documented as of this encounter Miscellaneous Notes * Telephone Encounter - Hallie Rosario MD - 06/23/2023 9:23 AM EST Doesn't need high dose weekly Vit D anymore, last level in October 2022 was 54. documented in this encounter Plan of Treatment Upcoming Encounters Date Type Department Care Team ([facility] st Contact Info) Description 11/29/2024 9:45 AM EDT Office Visit [facility] MED & PEDS [address] [place] [address] Hallie Rosario MD [address] [place] [address] documented as of this encounter Visit Diagnoses Diagnosis Vitamin D deficiency documented in this encounter Additional Health Concerns Assessment Noted Time PHQ-9 Depression Total Score: 23 023 9:33 AM EST documented as of this encounter Care Teams Expediter Service Order Relationship Specialty Start Date End Date Hallie Rosario MD [address] [place] [address] PCP - General Family Medicine 10/18/15 documented as of this encounter
--- OUTSIDE RECORDS SUMMARY | 2024-09-20 11:35 | XMS_ITS | Encounter Summary ---
Author Organization [facility] [facility] Address [address] [facility] 7 [place] [address] Care Team Providers Care Network Intelligence Analyst Name Role Phone Hallie Rosario MD Primary Care Provider [phone] Encounter Details Date Type Department Care Team (Late Contact Info) Description 05/20/2022 Orders Only [facility] MEDICINE [address] [place] [address] Hallie Rosario MD [address] [place], [place] [phone] Social History Tobacco Use Types Packs/Day Years [...] Encounters Date Type Department Care Team (Late Contact Info) Description 11/29/2024 9:45 AM EDT Office Visit [facility] CHC MED & PEDS [address] [place], [place] [phone] Hallie Rosario MD [address] [place], [place] [phone] documented as of this encounter Visit Diagnoses Not on filedocumented in this encounter Care Teams Network Intelligence Analyst Relationship Specialty Start Date End Date Hallie Rosario MD [address] [place], [place] [phone] PCP - General Family Medicine 10/18/15 documented as of this encounter
--- OUTSIDE RECORDS SUMMARY | 2024-09-20 11:35 | XMS_ITS | Encounter Summary ---
Author Organization [employer] [facility] Address [address] [place] [address] 7 [place] [address] Care Team Providers Care Spoilage Worker Name Role Phone Hallie Rosario MD Primary Care Provider [phone] Reason for Visit * Reason Comments Med Refill Encounter Details Date Type Department Care Team ([facility] Contact Info) Description 07/26/2022 Refill [facility] MED & PEDS [address] [place] [address] Hallie Rosario MD [address] [place], [place] [phone] Acquired hypothyroidism Social History Tobacco Use Types Packs/Day Years Used Date Smoking Tobacco: Never Passive Smoke Exposure: Never Smokeless Tobacco: Never Depression Answer Date Recorded Patient Health Questionnaire-9 Score 23 06/06/2022 Depression Answer Date Recorded Patient Health Questionnaire-2 Score 5 06/06/2022 Comments Unknown Sex and Gender Information Value Date Recorded Sex Assigned at Female 03/31/2022 10:18 AM EDT Legal Sex Female 10:18 AM EDT Gender Identity Female 03/31/2022 10:18 AM EDT Sexual Orientation Straight 03/31/2022 10 :18 AM EDT documented as of this encounter Plan of Treatment Upcoming Encounters Date Type Department Care Team ([facility] Contact Info) Description 11/29/2024 9:45 AM EDT Office Visit [facility] MED & PEDS [address] [place] [address] Hallie Rosario MD [address] [place], [place] [phone] documented as of this encounter Visit Diagnoses Diagnosis Acquired hypothyroidism Unspecified hypothyroidism documented in this encounter Additional Health Concerns Assessment Noted Time PHQ-9 Depression Total Score: 23 023 9:33 AM EST documented as of this encounter Care Teams Spoilage Worker Relationship Specialty Start Date End Date Hallie Rosario MD [address] [place] [address] PCP - General Family Medicine 10/18/15 documented as of this encounter
--- OUTSIDE RECORDS SUMMARY | 2024-09-20 11:35 | XMS_ITS | Encounter Summary ---
Author Organization [employer] Address [address] [facility] 7t [place] [address] Care Team Providers Care Security Officer Supervisor Name Role Phone Hallie Rosario MD Primary Care Provider Encounter Details Date Type Department Care Team ([facility] st Contact Info) Description 05/28/2024 Orders Only [facility] MEDICINE [address] [place] [address] ProviderIsaiah MD Social History Tobacco Use Types Packs/Day Years Used Date Smoking Tobacco: Never Passive Smoke Exposure: Never Smokeless Tobacco: Never Depression Answer Date Recorded Patient Health Questionnaire-9 Score 3 07/28/2023 Patient Health Questionnaire-9 Score 3 07/28/2023 Last PHQ-9: Questionnaire Data Not on file 0 07/28/2023 Housing Stability Answer Date Recorded What is your housing situation today? I have saira mata 07/28/[address] you li ve. Do you have problems with any of the following? None of the above 07/28/2023 Food Insecurity Answer Date Recorded Within the past 12 months, y ou worried that your food would run out before you got money to buy more: Sometimes True 2023 Within the past 12 months,th e food you bought just didn't last and you didn't have enough money to get more: Sometimes True 07/28/2023 Transportation Answer Date Recorded In the past 12 months, has l ack of transportation kept you from medical appts, meetings, work or from getting things needed for daily living? Yes, it has kept me from non-medical meetings, work, or getting things that I need 07/28/2023 Utilities Answer Date Recorded In the past 12 months, has t he electric, gas, oil or water company threatened to shut off services in your home? No 07/28/2023 Depression Answer Date Recorded Patient Health Questionnaire-2 Score 0 07/28/2023 Comments No Sex and Gender Information Value Date Recorded Sex Assigned at Female 03/31/2022 10:18 AM EDT Legal Sex Female 10:18 AM EDT Gender Identity Female 03/31/2022 10:18 AM EDT Sexual Orientation Straight 03/31/2022 10 :18 AM EDT documented as of this encounter Plan of Treatment Upcoming Encounters Date Type Department Care Team ([facility] st Contact Info) Description 11/29/2024 9:45 AM EDT Office Visit [facility] MED & PEDS [address] [place], [place] [phone] Hallie Rosario MD [address] [place] [address] documented as of this encounter Procedures Procedure Name Priority Date/Time Associated Diagnosis Comments BI MAMMOGRAM SCREENING TOMOSYNTHESIS BILATERAL Routine 06/07/2024 11:50 AM EST HM COLONOSCOPY Routine 2022 4:56 PM EST HM IFOBT Routine 2022 4:55 PM EST HM COLONOSCOPY Routine 2022 4:55 PM EST documented in this encounter Results * BI Mammogram Screening Tomosynthesis Bilateral (06/07/2024 11:50 AM EST) Anatomical Region Laterality Modality Breast Bilateral Mammography 06/07/2024 11:5 0 AM EST Narrative 06/13/2024 4:10 PM EST ? [facility] [place] ? [address] ?[place] [address] ? Mammography Report ? Signed ? Patient: Yoana Powell ?MR# ?? : [id number] ? : 1970 ?Acct:[id number] ? Age/Sex: 54 / F ?ADM Date: /07/25 ? Loc: HO.MAMMO ? Attending Dr: Josef Kimble MD ? Ordering Physician: Josef Kimble MD ?Results: 1Negativ ?? e ? Date of Service: 06/07/24 ?Follow Up: 1 Year From Orig ?? inal Mammogram ? Procedure(s): MM tomosynthesis screening BI ?? Accession Number(s): [id number] ? cc: Hallie Rosario MD; Josef Kimble [...] DD/ 1150 ? TD/TT: 06/07/24 1202 ? Compressor Operator Portable: ? Procedure Note Donotuseinterpreter, Image - [facility] [address] [place] [address] Mammography Report Signed Patient: Yoana Powell AMR# : [id number] : 1970Acct:[id number] Age/Sex: 54 / FADM Date: 06/07/24 Loc: HO.MAMMO Attending Dr: Josef Kimble MD Ordering Physician: Josef Kimbleesults: 1Negativ e Date of Service: 06/07/24Follow Up: 1 Year From Orig ina Mammogram Procedure(s): MM tomosynthesis screening BI Accession Number(s): [id number] cc: Hallie Rosario MD; Josef Kimble MD [...] by: Samantha Burrows DO 06/13/2024 04:07 PM [facility] Dictated By: Samantha Burrows DO Signed By: <Electronically signed by Samantha Burrows DO in OV> 06/13/24 1607 DD/ 1150 TD/TT: 06/07/24 1202 Compressor Operator Portable: [facility] External Provider IMG BI PROCEDURES Final Result * Hm Colonoscopy (2022 4:56 PM EST) Historical Provider HEALTH MAINTENANCE Final Result * Hm Colonoscopy (2022 4:55 PM EST) Historical Provider HEALTH MAINTENANCE Final Result * HM iFOBT (2022 4:55 PM EST) Stool Result [facility] Historical Provider POINT OF CARE TEST ENTER/ EDIT ORDERABLES Final Result documented in this encounter Visit Diagnoses Not on filedocumented in this encounter Additional Health Concerns Assessment Noted Time PHQ-9 Depression Total Score: 3 07/28/19 24 9:34 AM EST documented as of this encounter Care Teams Security Officer Supervisor Relationship Specialty Start Date End Date Hallie Rosario MD [address] [place] [address] PCP - General Family Medicine 10/18/15 documented as of this encounter
--- OUTSIDE RECORDS SUMMARY | 2024-09-20 11:35 | XMS_ITS | Encounter Summary ---
Author Organization [employer] [facility] Address [address] [place] [address] [place] [address] Care Team Providers Care Energy Crop Farmer Name Role Phone Hallie Rosario MD Primary Care Provider [phone] Encounter Details Date Type Department Care Team ([facility] Contact Info) Description 05/09/2022 Telephone [facility] MED & PEDS [address] [place] [address] Hallie Rosario MD [address] [place], [place] [phone] Social History Tobacco Use Types Packs/Day Years [...] Upcoming Encounters Date Type Department Care Team ([facility] Contact Info) Description 11/29/2024 9:45 AM EDT Office Visit [facility] MED & PEDS [address] [place] [address] Hallie Rosario MD [address] [place], [place] [phone] documented as of this encounter Visit Diagnoses Not on filedocumented in this encounter Care Teams Energy Crop Farmer Relationship Specialty Start Date End Date Hallie Rosario MD [address] [place], [place] [phone] PCP - General Family Medicine 10/18/15 documented as of this encounter
--- OUTSIDE RECORDS SUMMARY | 2024-09-20 11:35 | XMS_ITS | Encounter Summary ---
Author Organization [employer] Address [address] [facility] 7t [place] [address] Care Team Providers Care Respiratory Physician Name Role Phone Hallie Rosario MD Primary Care Provider [phone] Encounter Details Date Type Department Care Team (Latest Contact Info) Description 09/20/2024 Travel Social History Tobacco Use Types Packs/Day Years [...] Description 11/29/2024 9:45 AM EDT Office Visit [facility] MED & PEDS [address] [place] [address] Hallie Rosario MD [address] [place] [address] documented as of this encounter Visit Diagnoses Not on filedocumented in this encounter Additional Health Concerns Assessment Noted Time PHQ-9 Depression Total Score: 4 09/21/19 25 9:43 AM EDT documented as of this encounter Care Teams Respiratory Physician Relationship Specialty Start Date End Date Hallie Rosario MD [address] [place] [address] PCP - General Family Medicine 10/18/15 documented as of this encounter
[2024-09-20 14:10] LABS: MANUAL DIFF FLAG NO
[2024-09-20 14:12] LABS: Eosinophils Absolute Auto 0.1 X10*3/uL (0.0-0.4); Hemoglobin 13.1 g/dl (12.0-16.0); Imm Gran Abs Auto 0.01 X10*3/uL (0.00-0.03); Imm Gran Pct Auto 0.2 % (0.0-0.4); Lymphocytes Absolute Auto 1.6 X10*3/uL (1.2-4.9); Mean Corpuscular HGB Conc 33.6 g/dl (31.0-35.0); Mean Corpuscular Hemoglobin 31.2 pg (27.0-33.0); Mean Corpuscular Volume 92.9 fL (80.0-98.0); Mean Platelet Volume 10.2 fL (9.4-12.3); Monocytes Absolute Auto 0.3 X10*3/uL (0.1-1.2); Monocytes Percent Auto 8.5 % (2-11); Neutrophils Absolute Auto 1.9 x10*3/uL (2.0-8.3); Neutrophils Percent Auto 47.3 % (45-73); Platelet Count 220 X10*3/uL (160-400); Red Cell Distribution Width 12.6 % (11.0-16.0)
[2024-09-20 14:50] LABS: Alanine Aminotransferase 67 U/L (0-31); Albumin Level 4.2 g/dL (3.5-5.0); Alkaline Phosphatase 86 U/L (39-117); Anion Gap 10 (12-20); Aspartate Amino Transferase 45 U/L (5-31); Bilirubin Direct 0.2 mg/dL (0.0-0.5); Blood Urea Nitrogen 11 mg/dL (9-16); Calcium 9.3 mg/dL (8.4-10.2); Carbon Dioxide 28 mmol/L (22-29); Chloride 106 mmol/L (96-108); Cholesterol 206 mg/dL (<200); Estimated Glomerular Filt Rate > 60; Glucose Fasting 101 mg/dL (60-99); HDL Cholesterol 51 mg/dL (>40); LDL Cholesterol Calculated 122 mg/dL (<100); Potassium 3.9 mmol/L (3.3-5.1); Sodium 140 mmol/L (135-145); Total Protein 7.6 g/dL (6.5-8.0); Triglycerides 168 mg/dL (<150)
[2024-09-20 15:08] LABS: TSH reflex Free T4 6.64 uIU/mL (0.32-4.0)
[2024-09-20 16:48] LABS: Free T4 (Free Thyroxine) 0.85 ng/dL (0.71-1.85)
== END 2024-09-20 10:10 | disposition home or self-care (01) ==
LOC: HO.CHCLDS 10:09
PROVIDERS: Visit Provider Pediatrics
DX: E55.9 Vitamin D deficiency, unspecified (principal); E03.9 Hypothyroidism, unspecified
CPT/HCPCS: 36415; 80048; 80061; 80076; 82306; 84439; 84443; 85025

== ENCOUNTER 2024-09-27 10:42 | Outpatient (REF) | payer OTHER, SELFPAY ==
--- OUTSIDE RECORDS SUMMARY | 2024-09-27 12:23 | XMS_ITS | Encounter Summary ---
Author Organization [facility] Address [address] [facility] 7 [place] [address] Care Team Providers Care Seamer Name Role Phone Hallie Rosario MD Primary Care Provider [phone] Encounter Details Date Type Department Care Team (Late Contact Info) Description 05/20/[address] [facility] MEDICINE [address] [place] [address] Hallie Rosario MD [address] [place], [place] [phone] Social History Tobacco Use Types Packs/Day Years [...] Description 11/29/2024 9:45 AM EDT Office Visit [facility] MED & PEDS [address] [place], [place] [phone] Hallie Rosario MD [address] [place], [place] [phone] documented as of this encounter Visit Diagnoses Not on filedocumented in this encounter Care Teams Seamer Relationship Specialty Start Date End Date Hallie Rosario MD [address] [place], [place] [phone] PCP - General Family Medicine 10/18/15 documented as of this encounter
--- OUTSIDE RECORDS SUMMARY | 2024-09-27 12:23 | XMS_ITS | Encounter Summary ---
Author Organization [employer] [facility] Address [address] [place] [address] 7 [place] [address] Care Team Providers Care Consulting Practice Director Name Role Phone Hallie Rosario MD Primary Care Provider [phone] Encounter Details Date Type Department Care Team (Latest Contact Info) Description 05/04/2019 Abstract [facility] CONVERSIONS Dental, Provider, DDS Social History Tobacco [...] Description 11/29/2024 9:45 AM EDT Office Visit [facility] MED & PEDS [address] [place] [address] Hallie Rosario MD [address] [place] [address] documented as of this encounter Visit Diagnoses Not on filedocumented in this encounter Care Teams Consulting Practice Director Relationship Specialty Start Date End Date Hallie Rosario MD [address] [place] [address] PCP - General Family Medicine 10/18/15 documented as of this encounter
--- OUTSIDE RECORDS SUMMARY | 2024-09-27 12:23 | XMS_ITS | Clinical Summary ---
Author Organization [employer] Address 75 [facility] 7t [place] [address] Care Team Providers Care Sap Business Objects Consultant Name Role Phone Hallie Rosario MD Primary Care Provider [phone] Allergies Active Allergy Reactions Criticality Noted Date Comments Penicillins 02/17/2013 Medications Diclofenac Sodium (Voltaren) 1 % gel apply (2G) by topical route 4 times every day to the affected area(s) 019 Active ergocalciferol (Vitamin D2) 1.25 MG (37738 UT) capsuleIndication s:Vitamin D deficiency Take 1 [...] Encounters Date Type Department Care Team Description 09/26/2024 Telephone [facility] MED & PEDS [address] [place] [address] Hallie Rosario MD Results 09/21/2024 Telephone [facility] MED & PEDS [address] [place] [address] Hallie Rosario MD Results; Medication Question 09/21/2024 Orders Only [facility] MED & PEDS [address] [place] [address] Hallie Rosario MD Transaminitis (Primary Dx) 09/20/2024 9:15 AM EDT Office Visit [facility] MED & PEDS [address] [place] [address] Hallie Rosario MD Vitamin D deficiency (Primary Dx); Acquired hypothyroidism; Dietary counseling; Exercise counseling; Encounter for immunization; Routine general medical examination at a health care facility; Anxiety; Elevated BP without diagnosis of hypertension; Gastroesophageal reflux disease, unspecified whether esophagitis present 09/20/2024 Orders Only [facility] MED & PEDS [address] [place], [place] [phone] Hallie Rosario MD 09/20/2024 Telephone [facility] MED & PEDS [address] [place], [place] [phone] Hallie Rosario MD pcp other 09/20/2024 Travel 09/09/2024 Patient Outreach [facility] MEDICINE [address] [place], [place] [phone] Hallie Rosario MD Pre-visit Planning (SDOH screening [...] your housing situation today? I have saira maat 09/09/[address] you li [...] Description 11/29/2024 9:45 AM EDT Office Visit [facility] CHC MED & PEDS [address] [place] [address] Hallie Rosario MD [address] [place] [address] Health Maintenance Due Date Last Done Comments [...] 09/20/2025 09/20/2024 Depression Screening 09/20/2025 09/20/2024, 09/21/19 25 Tobacco Screening 09/20/2025 09/20/2024 Mammogram 06/07/2026 06/07/2024, [...] Procedure Name Priority Date/Time Associated Diagnosis Comments T4, FREE Routine 09/20/2024 10:10 AM EDT LIPID PANEL, STANDARD Routine 09/20/2024 10:10 AM EDT Vitamin D deficiency Acquired hypothyroidism TSH W/REFLEX TO FT4 Routine 09/20/2024 1 0:10 AM EDT Vitamin D deficiency Acquired hypothyroidism VITAMIN D,25-OH,TOTAL,IA Routine 09/20/2024 10:10 AM EDT Vitamin D deficiency Acquired hypothyroidism HEPATIC FUNCTION PANEL Routine 09/20/2024 10:10 AM EDT Vitamin D deficiency Acquired hypothyroidism CBC WITH AUTO DIFFERENTIAL Routine 09/20/2024 10:10 AM EDT Vitamin D deficiency Acquired hypothyroidism BASIC METABOLIC PANEL, FASTING Routine 09/20/2024 10:10 AM EDT Vitamin D deficiency Acquired hypothyroidism BI MAMMOGRAM SCREENING TOMOSYNTHESIS BILATERAL Routine 06/07/2024 11:50 AM EST PAP SMEAR Routine 04/26/2024 8:22 AM EST IMAGE-GUIDED PAP W/AGE BASED SCR PROTOCOLS Routine 11/25/2022 10:23 AM EDT Vitamin D deficiency Anxiety Acquired hypothyroidism Pelvic pain HM IFOBT Routine 2022 4:55 PM EST HM COLONOSCOPY Routine 2022 4:55 PM EST from Last 3 Months or Most Recently Relevant to Health Maintenance Results * (ABNORMAL) Basic Metabolic Panel, Fasting (09/20/2024 10:10 AM EDT) Sodium 140 135 - 145 mmol/L [facility] Potassium 3.9 3.3 - 5.1 mmol/L [facility] Chloride 106 96 - 108 mmol/L [facility] Carbon Dioxide 28 22 - 29 mmol/L [facility] Anion Gap 10(L) 12 - 20 [facility] Urea Nitrogen (BUN) 11 9 - 16 mg/dL [facility] Creatinine, Serum 0.82 0.5 - 1.4 mg/dL [facility] Estimated Glomerular Filt Rate >60 [facility] Comment:Chronic Kidney Disea se: Estimated GFR < 60 mL/min/1.65t1Aciijn Kidney Disease: Estimated GFR < 15 mL/min/1.73m2 Glucose Fasting 101(H) 60 - 99 mg/dL [facility] Comment:A fasting glucose fr om 100-125 mg/dl is considered impaired(pre-diabetes). Calcium 9.3 8.4 - 10.2 mg/dL [facility] Blood Venous blood specimen / Unknown 09/20/2024 10:10 AM EDT 09/20/2024 2:04 PM EDT us Hallie Rosario MD LAB BLOOD ORDERABLES Final Re sult [facility] [address] [place] [phone] * Vitamin D, 25-Hydroxy, Total, Immunoassay (09/20/2024 10:10 AM EDT) Vitamin D 25-OH Total 33.0 >30 ng/mL [facility] Comment: Health Based Reference Values*< 20 ??ng/mL ??Eogjxdbdz30-80 ng/mL ??Insufficient> 30 ??ng/mL ??Sufficient*Rogelio GARCIA. N Engl J Med. 2007;357:266-280There is no well-established upper level of normal vitamin Dlevels. Some laboratories use 50 ng/mL as an upper limit ofnormal. However, toxicity is patient-dependent and may occurat any level. Careful correlation with the patient'spresentation is necessary and, if there is concern forvitamin D toxicity, treatment should be consideredirrespective of the serum level.Care must be taken in interpreting Vitamin D results fromdifferent laboratories and methodologies. ??Published datademonstrated that results from patients undergoinghemodialysis may show a negative bias when tested withvarious automated 25-OH vitamin D assays when compared toLC- MS/MS.When testing samples from patients whose predominant form ofVitamin D is Vitamin D2, such as patients receiving VitaminD2 supplementation, results that are subtherapeutic shouldbe confirmed with another method such as LC-MS/MS. Blood Venous blood specimen / Unknown 09/20/2024 10:10 AM EDT 09/20/2024 2:04 PM EDT Hallie Rosario MD LAB BLOOD ORDERABLES Final Re sult Performing Organization Address [facility]/ZIP Co de Phone Number [facility] [address] [place] [phone] * (ABNORMAL) TSH W/Reflex to FT4 (09/20/2024 10:10 AM EDT) Pathologist [facility] TSH reflex Free T4 6.64(H) 0.32 - 4.0 uIU/mL [facility] Blood Venous blood specimen / Unknown 09/20/2024 10:10 AM EDT 09/20/2024 2:04 PM EDT Hallie Rosario MD LAB BLOOD ORDERABLES Final Re sult Performing Organization Address [facility] Co de Phone Number [facility] [address] [place] [phone] * (ABNORMAL) CBC auto differential (09/20/2024 10:10 AM EDT) White Blood Count 4.0(L) 4.8 - 10.8 X10*3/uL [facility] Red Blood Count 4.20 4.20 - 5.50 X10*6/uL [facility] Hemoglobin 13.1 12.0 - 16.0 g/dl [facility] Hematocrit 39.0 37.0 - 47.0 % [facility] Mean Corpuscular Volume 92.9 80.0 - 98.0 fL [facility] Mean Corpuscular Hemoglobin 31.2 27.0 - 33.0 pg [facility] Mean Corpuscular HGB Conc 33.6 31.0 - 35.0 g/dl [facility] Red Cell Distribution Width 12.6 11.0 - 16.0 % [facility] Platelet Count 220 160 - 400 X10*3/uL [facility] Mean Platelet Volume 10.2 9.4 - 12.3 fL [facility] Neutrophils Percent Auto 47.3 45 - 73 % [facility] Imm Gran Pct Auto 0.2 0.0 - 0.4 % [facility] Lymphocytes Percent Auto 40.0 20 - 40 % [facility] Monocytes Percent Auto 8.5 2 - 11 % [facility] Eosinophils Percent Auto 3.0 0 - 4 % [facility] Basophils Percent Auto 1.0 0 - 2 % [facility] NRBC Pct Auto 0.0 0.0 - 0.2 /100WBC [facility] Neutrophils Absolute Auto 1.9(L) 2.0 - 8.3 x10*3/uL [facility] Imm Gran Abs Auto 0.01 0.00 - 0.03 X10*3/uL [facility] Lymphocytes Absolute Auto 1.6 1.2 - 4.9 X10*3/uL [facility] Monocytes Absolute Auto 0.3 0.1 - 1.2 X10*3/uL [facility] Eosinophils Absolute Auto 0.1 0.0 - 0.4 X10*3/uL [facility] Basophils Absolute Auto 0.0 0.0 - 0.2 X10*3/uL [facility] NRBC Abs Auto 0.000 0.0 - 0.012 X10*3/uL [facility] Blood Venous blood specimen / Unknown 09/20/2024 10:10 AM EDT 09/20/2024 2:04 PM EDT us Hallie Rosario MD LAB BLOOD ORDERABLES Final Re sult [facility] [address] [place] [phone] * T4, Free (09/20/2024 10:10 AM EDT) Free T4 (Free Thyroxine) 0.85 0.71 - 1.85 ng/dL [facility] 09/20/2024 10:1 0 AM EDT 09/20/2024 2:04 PM EDT Hallie Rosario MD LAB BLOOD ORDERABLES Final Re sult Performing Organization Address City/[facility]/ZIP Co de Phone Number [facility] [address] [place] [phone] * (ABNORMAL) Hepatic Function Panel (09/20/2024 10:10 AM EDT) Bilirubin, Total 1.0 0.0 - 1.0 mg/dL [facility] Bilirubin, Direct 0.2 0.0 - 0.5 mg/dL [facility] Aspartate Amino Transferase 45(H) 5 - 31 U/L [facility] Alanine Aminotransferase 67(H) 0 - 31 U/L [facility] Total Protein 7.6 6.5 - 8.0 g/dL [facility] Albumin Level 4.2 3.5 - 5.0 g/dL [facility] Alkaline Phosphatase 86 39 - 117 U/L [facility] Blood Venous blood specimen / Unknown 09/20/2024 10:10 AM EDT 09/20/2024 2:04 PM EDT Hallie Rosario MD LAB BLOOD ORDERABLES Final Re sult Performing Organization Address City/[facility]/ZIP Co de Phone Number [facility] [address] [place] [phone] * (ABNORMAL) Lipid Panel, Standard (09/20/2024 10:10 AM EDT) Triglycerides 168(H) <150 mg/dL [facility] Comment:Desirable Triglyceri de: less than 150 mg/dLBorderline High Triglyceride 150-199 mg/dLHigh Triglyceride: 200-499 mg/dLVery High Triglyceride: greater than or equal to 5OO mg/dL Cholesterol 206(H) <200 mg/dL [facility] Comment:Desirable Cholestero l: less than 200 mg/dLBorderline High Cholesterol: 200-239 mg/dLHigh Cholesterol: greater than 239 mg/dL LDL Cholesterol Calculated 122(H) <100 mg/dL [facility] Comment:Desirable LDL: less than 100 mg/dLNear Optimal/Above Optimal LDL: 110- 129 mg/dLBorderline High LDL: 130-159 mg/dLHigh LDL: 160-189 mg/dLVery High LDL: greater than or equal to 190 mg/dL HDL Cholesterol 51 >40 mg/dL [facility] Comment:Desirable HDL: great er than 40 mg/dL Note: This HDL assay may give artificially low results in patients with liver disease. Blood Venous blood specimen / Unknown 09/20/2024 10:10 AM EDT 09/20/2024 2:04 PM EDT us Hallie Rosario MD LAB BLOOD ORDERABLES Final Re sult [facility] [address] [place] [phone] * BI Mammogram Screening Tomosynthesis Bilateral (06/07/2024 11:50 AM EST) Anatomical Region Laterality Modality Breast Bilateral Mammography 06/07/2024 11:5 0 AM EST Narrative 06/13/2024 4:10 PM EST ? [facility] ? [address] [facility] ?[place] [address] ? Mammography Report ? Signed ? Patient: Giles Martinez,Yoana A ?MR# ?? : [id number] ? : 1970 ?Acct:[id number] ? Age/Sex: 54 / F ?ADM Date: /07/25 ? Loc: HO.MAMMO ? Attending Dr: Josef Kimble MD ? Ordering Physician: Josef Kimble MD ?Results: 1Negativ ?? e ? Date of Service: 06/07/24 ?Follow Up: 1 Year From Orig ?? inal Mammogram ? Procedure(s): MM tomosynthesis screening BI ?? Accession Number(s): [id number] ? cc: Hallie Rosario MD; Josef Kimble [...] ??Samantha Burrows DO ??06/13/2024 04:07 PM EST ? Dictated By: ?Samantha Burrows DO ? Signed By: ?<Electronically signed by Samantha Burrows, DO in OV> ? 06/13/24 1607 ? DD/ 1150 ? TD/TT: 06/07/24 1202 ? Calender Runner: ? Procedure Note Donantionetteinterpreter, Image - 06/13/2024 [facility] [address] [place], [place] [address] Mammography Report Signed Patient: Yoana Powell AMR# : [id number] : 1970Acct:[id number] Age/Sex: 54 / FADM Date: 06/07/24 Loc: HO.MAMMO Attending Dr: Josef Kimble MD Ordering Physician: Josef Kimble MDResults: 1Negativ e Date of Service: 06/07/24Follow Up: 1 Year From Orig inal Mammogram Procedure(s): MM tomosynthesis screening BI Accession Number(s): [id number] cc: Hallie Rosario MD; Josef Kimble MD [...] Samantha Burrows DO 06/13/2024 04:07 PM EST RP Dictated By: Samantha Burrows DO Signed By: <Electronically signed by Samantha Burrows DO in OV> 06/13/24 1607 DD/ 1150 TD/TT: 06/07/24 1202 Calender Runner: [facility] External Provider IMG BI PROCEDURES Final Result * Pap Smear (04/26/2024 8:22 AM EST) 04/26/2024 8:22 AM EST 04/26/2024 11:25 AM EST [facility] - 05/03/2024 10:21 AM EST ----- ------- Name: Yoana Powell ? Age/Sex: 53/F ? : 1970 Unit#: [id number] ?? Attend Dr: Josef Kimble MD ?Re04/26/24 ?Status: DEP REF ? Location: HO.LNP ?Disch: ? ----- ------- SPEC : [id number] ?RECD: 04/26/24 ? STATUS: ??SOUT ? REQ NUM: [id number] ? GUERDA: 04/26/24 ? SUBM DR: Josef [...] Copies To: ?? Hallie Rosario MD ?? [facility] ?? [address] ?? [place] [address] ?? [phone] ?? Josef Kimble MD ?? [facility] ?? [address] ?? [place] [address] ?? [phone] ----- ------- Signed (signature on file) Jorge Luis BRITNI Mejia (ASCP) 05/03/24 1021 ? ----- ------- ? END OF REPORT ? us Generic External Data Provider LAB CYTOLOGY RAY NAVAS Final Result [facility] [address] [place] [phone] * (ABNORMAL) Image-Guided Pap with Age-Based Screening Protocols (11/25/2022 10:23 AM EDT) Comment [facility] Comment: This order for age-based cervical cancer and STI screening follows ACOG guidelines(PB 168, 140, RZH468). See individual assays for performing site location. Clinical Information: None given [facility] LMP: NONE GIVEN [facility] Prev. PAP: NONE GIVEN [facility] Prev. BX: NONE GIVEN [facility] SOURCE: None given [facility] Statement Of Adequacy: [facility] Comment: Satisfactory for evaluation. Endocervical/transformation zone component present. General Categorization: Cytology Results: Epithelial Cell Abnormality(A) [facility] Interpretation/ Result: Atypical Squamous Cells of Undetermined Significance (ASC-US)(A) [facility] COMMENT: This Pap test has been evaluated with computer assisted technology. [email or web address] [facility] Cytotechnologis t: [email or web address] [facility] Comment: WAC, CT(ASCP) CT screening location: [address] ??[phone] PATHOLOGIST: [email or web address] [facility] Comment: Jazzmine Calhoun D.O. Board Certified in Anatomic, Clinical and Cytopathology (electronic signature) Consulting Pathologist [facility] [address] [place] [address] (Always Message) [email or web address] [facility] Comment: EXPLANATORY NOTE: The Pap is a [...] information. HPV nRNA E6/E7 Detected(A) Not Detected [email or web address] [facility] Comment: Methodology: Photographer'S Assistant-Mediated Amplification This assay detects E6/E7 viral messenger RNA (mRNA) from 14 high-risk HPV types (16,18,31,33,35,39,45,51,52,56,58,59,66,68). Cervical sources are required for HPV testing. If a vaginal source from a patient who has had a total hysterectomy with removal of cervix was submitted, please contact the testing laboratory for alternative testing options. For additional information, please refer to http://education.ArtVenue/faq/QSK156z1 (This link if provided for information/ educational purposes only.) Cervix 11/25/2022 10:2 3 AM EDT 11/26/2022 2:57 AM EDT us Hallie Rosario MD LAB BLOOD ORDERABLES Final Re sult [facility] Que[facility]ada [address], [place] [address] [email or web address] [facility] [address] [place] [address] * iFOBT (2022 4:55 PM EST) Stool Historical Provider POINT OF CARE TEST ENTER/ EDIT ORDERABLES Final Result * Colonoscopy (2022 4:55 PM EST) Historical Provider HEALTH MAINTENANCE Final Result from Last 3 Months or Most Recently Relevant to Health Maintenance Insurance Care Teams Sap Business Objects Consultant Relationship Specialty Start Date End Date Hallie Rosario MD [address] [place] [address] PCP - General Family Medicine 10/18/15
--- OUTSIDE RECORDS SUMMARY | 2024-09-27 12:23 | XMS_ITS | Encounter Summary ---
Author Organization [employer] Address [address] [facility] 7t [place] [address] Care Team Providers Care Diet Therapist Name Role Phone Hallie Rosario MD Primary Care Provider [phone] Encounter Details Date Type Department Care Team ([facility] st Contact Info) Description 05/28/2024 Orders Only [facility] MEDICINE [address] [place] [address] ProviderIsaiah MD Social History Tobacco Use Types [...] Upcoming Encounters Date Type Department Care Team ([facility] st Contact Info) Description 11/29/2024 9:45 AM EDT Office Visit [facility] MED & PEDS [address] [place], [place] [phone] Hallie Rosario MD [address] [place] [address] documented as of this encounter Procedures Procedure [...] EST Narrative 06/13/2024 4:10 PM EST ? [facility] [place] ? [address] ?[place] [address] ? Mammography Report ? Signed ? Patient: Yoana Powell ?MR# ?? : [id number] ? : 1970 ?Acct:[id number] ? Age/Sex: 54 / F ?ADM Date: /07/25 ? Loc: HO.MAMMO ? Attending Dr: Josef Kimble MD ? Ordering Physician: Josef Kimble MD ?Results: 1Negativ ?? e ? Date of Service: 06/07/24 ?Follow Up: 1 Year From Orig ?? inal Mammogram ? Procedure(s): MM tomosynthesis screening BI ?? Accession Number(s): [id number] ? cc: Hallie Rosario MD; Josef Kimble [...] DD/ 1150 ? TD/TT: 06/07/24 1202 ? Ammunition Storage Superintendent: ? Procedure Note Donotuseinterpreter, Image - 06/13/2024 [facility] [address] [place] [address] Mammography Report Signed Patient: Yoana Powell AMR# : [id number] : 1970Acct:[id number] Age/Sex: 54 / FADM Date: 06/07/24 Loc: HO.MAMMO Attending Dr: Josef Kimble MD Ordering Physician: Josef Kimbleesults: 1Negativ e Date of Service: 06/07/24Follow Up: 1 Year From Orig ina Mammogram Procedure(s): MM tomosynthesis screening BI Accession Number(s): [id number] cc: Hallie Rosario MD; Josef Kimble MD [...] by: Samantha Burrows DO 06/13/2024 04:07 PM [facility] Dictated By: Samantha Burrows DO Signed By: <Electronically signed by Samantha Burrows DO in OV> 06/13/24 1607 DD/ 1150 TD/TT: 06/07/24 1202 Ammunition Storage Superintendent: [facility] External Provider IMG BI PROCEDURES Final Result * Hm Colonoscopy (2022 4:56 PM EST) Historical Provider HEALTH MAINTENANCE Final Result * Hm Colonoscopy (2022 4:55 PM EST) Historical Provider HEALTH MAINTENANCE Final Result * HM iFOBT (2022 4:55 PM EST) Stool Result [facility] Historical Provider POINT OF CARE TEST ENTER/ EDIT ORDERABLES Final Result documented in this encounter Visit Diagnoses Not on filedocumented in this encounter Additional Health Concerns Assessment Noted Time PHQ-9 Depression Total Score: 3 07/28/19 24 9:34 AM EST documented as of this encounter Care Teams Diet Therapist Relationship Specialty Start Date End Date Hallie Rosario MD [address] [place] [phone] PCP - General Family Medicine 10/18/15 documented as of this encounter
--- OUTSIDE RECORDS SUMMARY | 2024-09-27 12:23 | XMS_ITS | Encounter Summary ---
Author Organization [employer] Address [address] [facility] 7t [place] [address] Care Team Providers Care Ice Cream Truck Driver Name Role Phone Hallie Rosario MD Primary Care Provider [phone] Encounter Details Date Type Department Care Team (Late st Contact Info) Description 07/07/2023 Orders Only [facility] MEDICINE [address] [place], [place] [phone] Isha Santos NP [address] [place], [place] [phone] Back pain, unspecified back location, unspecified back [...] the past 12 months, has t he [employer], gas, oil or water company threatened to [...] Description 11/29/2024 9:45 AM EDT Office Visit [facility] MED & PEDS [address] [place] [address] Hallie Rosario MD [address] [place] [address] documented as of this encounter Visit Diagnoses Diagnosis Back pain, unspecified back location, unspecified back pain laterality, unspecified chronicity- Primary documented in this encounter Additional Health Concerns Assessment Noted Time PHQ-9 Depression Total Score: 23 023 9:33 AM EST documented as of this encounter Care Teams Ice Cream Truck Driver Relationship Specialty Start Date End Date Hallie Rosario MD [address] [place] [address] PCP - General Family Medicine 10/18/15 documented as of this encounter
--- OUTSIDE RECORDS SUMMARY | 2024-09-27 12:23 | XMS_ITS | Encounter Summary ---
Author Organization [employer] Address [address] [facility] 7 [place] [address] Care Team Providers Care Sky Line Yarder Name Role Phone Hallie Rosario MD Primary Care Provider [phone] Reason for Visit * Reason Onset Date Comments Results 09/21/2024 Medication Question 09/21/2024 Encounter Details Date Type Department Care Team ([facility] [address] Contact Info) Description 09/21/2024 Telephone [facility] [address] [place] [address] Hallie Rosario MD [address] [place] [address] Results; Medication Question Social History Tobacco Use Types Packs/Day Years [...] encounter Miscellaneous Notes * Telephone Encounter - Juana Patrick RN - 09/22/2024 1:59 PM EDT TC to pt. No answer x2. * Telephone Encounter - Raudel Ambrosio - 09/22/2024 8:34 AM EDT Tc from pt returning call in regards prior message. Please return call [phone] * Telephone Encounter - Cherie Mendieta RN - 09/21/2024 10:07 AM EDT TC to pt. No answer x2. Voicemail left by warehouse team member. Please inform patient that her liver tests are elevated and I ordered a liver US to look at liver and gallbladder and also ordered some more blood tests ( no fasting required). I suspect fatty liver but in meantime needs to restrain from alcohol as much as possible.Her thyroid tests are abnormal but she ran out of her thyroid medication 3 months ago so that is not surprising.Please nake sure she picked up script sent for her of levothyroxine and is taking it daily.Thanks documented in this encounter Plan of Treatment Upcoming Encounters Date Type Department Care Team (Late st Contact Info) Description 11/29/2024 9:45 AM EDT Office Visit [facility] MED & PEDS [address] [place] [address] Hallie Rosario MD [address] [place] [address] documented as of this encounter Visit Diagnoses Not on filedocumented in this encounter Additional Health Concerns Assessment Noted Time PHQ-9 Depression Total Score: 4 09/21/19 25 9:43 AM EDT documented as of this encounter Care Teams Sky Line Yarder Relationship Specialty Start Date End Date Hallie Rosario MD [address] [place] [address] PCP - General Family Medicine 10/18/15 documented as of this encounter
--- OUTSIDE RECORDS SUMMARY | 2024-09-27 12:23 | XMS_ITS | Encounter Summary ---
Author Organization [employer] [facility] Address [address] [place] [address] 7 [place] [address] Care Team Providers Care Airport Operations Specialist Name Role Phone Hallie Rosario MD Primary Care Provider [phone] Reason for Visit * Reason Comments Med Refill Encounter Details Date Type Department Care Team ([facility] Contact Info) Description 07/26/2022 Refill [facility] MED & PEDS [address] [place] [address] Hallie Rosario MD [address] [place], [place] [phone] Acquired hypothyroidism Social History Tobacco Use Types [...] Upcoming Encounters Date Type Department Care Team ([facility] Contact Info) Description 11/29/2024 9:45 AM EDT Office Visit [facility] MED & PEDS [address] [place] [address] Hallie Rosario MD [address] [place], [place] [phone] documented as of this encounter Visit Diagnoses Diagnosis Acquired hypothyroidism Unspecified hypothyroidism documented in this encounter Additional Health Concerns Assessment Noted Time PHQ-9 Depression Total Score: 23 023 9:33 AM EST documented as of this encounter Care Teams Airport Operations Specialist Relationship Specialty Start Date End Date Hallie Rosario MD [address] [place] [address] PCP - General Family Medicine 10/18/15 documented as of this encounter
--- OUTSIDE RECORDS SUMMARY | 2024-09-27 12:23 | XMS_ITS | Encounter Summary ---
Author Organization [employer] Address [address] [facility] 7 [place] [address] Care Team Providers Care Associate Professor Of Communication Name Role Phone Hallie Rosario MD Primary Care Provider [phone] Reason for Visit * Reason Onset Date Comments Results 09/26/2024 Encounter Details Date Type Department Care Team ([facility] Contact Info) Description 09/26/2024 Telephone [facility] MED & PEDS [address] [place] [address] Hallie Rosario MD [address] [place] [address] Results Social History Tobacco Use Types Packs/Day Years [...] encounter Miscellaneous Notes * Telephone Encounter - Cherie Mendieta RN - 09/26/2024 1:13 PM EDT TC to pt. mobile sales technician used. Messaged relayed from Dr. Rosario-- Please inform patient that her liver tests [...] her of levothyroxine and is taking it daily. Pt verbalizes understanding and agreement with the plan of care, states she will go get her blood work tomorrow and that she picked up her levothyroxine and has started taking. documented in this encounter Plan of Treatment Upcoming Encounters Date Type Department Care Team (Late st Contact Info) Description 11/29/2024 9:45 AM EDT Office Visit [facility] MED & PEDS [address] [place] [address] Hallie Rosario MD [address] [place] [address] documented as of this encounter Visit Diagnoses Not on filedocumented in this encounter Additional Health Concerns Assessment Noted Time PHQ-9 Depression Total Score: 4 09/21/19 25 9:43 AM EDT documented as of this encounter Care Teams Associate Professor Of Communication Relationship Specialty Start Date End Date Hallie Rosario MD [address] [place] [address] PCP - General Family Medicine 10/18/15 documented as of this encounter
--- OUTSIDE RECORDS SUMMARY | 2024-09-27 12:23 | XMS_ITS | Encounter Summary ---
Author Organization [employer] [facility] Address [address] [place] [address] [address] [place] [address] Care Team Providers Care Associate Dean Of Students Name Role Phone Hallie Rosario MD Primary Care Provider [phone] Encounter Details Date Type Department Care Team ([facility] Contact Info) Description 05/09/2022 Telephone [facility] MED & PEDS [address] [place] [address] Hallie Rosario MD [address] [place], [place] [phone] Social History Tobacco Use Types Packs/Day Years [...] Upcoming Encounters Date Type Department Care Team ([facility] Contact Info) Description 11/29/2024 9:45 AM EDT Office Visit [facility] MED & PEDS [address] [place] [address] Hallie Rosario MD [address] [place], [place] [phone] documented as of this encounter Visit Diagnoses Not on filedocumented in this encounter Care Teams Associate Dean Of Students Relationship Specialty Start Date End Date Hallie Rosario MD [address] [place], [place] [phone] PCP - General Family Medicine 10/18/15 documented as of this encounter
--- OUTSIDE RECORDS SUMMARY | 2024-09-27 12:23 | XMS_ITS | Encounter Summary ---
Author Organization [employer] Address [address] [facility] 7t [place] [address] Care Team Providers Care Medical Staff Assistant Name Role Phone Hallie Rosario MD Primary Care Provider [phone] Reason for Visit * Reason Comments Med Refill Encounter Details Date Type Department Care Team ([facility] st Contact Info) Description 06/22/2023 Refill [facility] MED & PEDS [address] [place], [place] [phone] Hallie Rosario MD [address] [place] [address] Vitamin D deficiency Social History Tobacco Use [...] Upcoming Encounters Date Type Department Care Team ([facility] st Contact Info) Description 11/29/2024 9:45 AM EDT Office Visit [facility] MED & PEDS [address] [place] [address] Hallie Rosario MD [address] [place] [address] documented as of this encounter Visit Diagnoses Diagnosis Vitamin D deficiency documented in this encounter Additional Health Concerns Assessment Noted Time PHQ-9 Depression Total Score: 23 023 9:33 AM EST documented as of this encounter Care Teams Medical Staff Assistant Relationship Specialty Start Date End Date Hallie Rosario MD [address] [place] [address] PCP - General Family Medicine 10/18/15 documented as of this encounter
[2024-09-27 14:46] LABS: Estimated Average Glucose 137 mg/dL; Hemoglobin A1C 152.5708 umol/L; Hemoglobin A1c % 6.4 % (<6.0); Total Hemoglobin (HGBA1C) 3322.6779 umol/L
[2024-09-27 14:49] LABS: Iron 76 mcg/dL (30-160); Percent Iron Saturation 36 % (15-50); Total Iron Binding Capacity 212 mcg/dL (228-428); Unsaturated Iron Binding 136 ug/dL
[2024-09-27 15:05] LABS: Ferritin 222 ng/mL (10-250)
[2024-09-28 08:09] LABS: HBsAGNum1 0.31 S/CO (0.00-0.99); Hepatitis B Surface Antigen Negative (Negative); ~HepC Num1 0.09 S/CO (0.00-0.79); ~Hepatitis B Surface Antibody NONREACTIVE (Nonreactive); ~Hepatitis C Antibody Nonreactive (Nonreactive)
== END 2024-09-27 10:43 | disposition home or self-care (01) ==
LOC: HO.CHCLDS 10:42
PROVIDERS: Visit Provider Pediatrics
DX: R74.01 Elevation of levels of liver transaminase levels (principal)
CPT/HCPCS: 36415; 82728; 83036; 83540; 86706; 86803; 87340

== ENCOUNTER 2024-10-18 08:50 | Outpatient (REF) | payer OTHER, SELFPAY ==
--- NOTE | ~2024-10-18 | US_ITS ---
EXAMINATION: US ABDOMEN COMPLETE CLINICAL INFORMATION: Increased liver enzymes, rule out gallbladder disease, fatty liver.. COMPARISON: Renal US 01/19/2015. TECHNIQUE: Real-time imaging of the abdominal viscera. FINDINGS: PANCREAS: Visualized portions are unremarkable. ABDOMINAL AORTA: The proximal, mid, and distal segments are normal in caliber. INFERIOR VENA CAVA: Visualized portions are normal. LIVER: The liver is normal in size. Right hepatic lobe measures 12.8 cm in length. The liver contour is normal. There is diffuse increased liver parenchymal echogenicity, consistent with hepatic steatosis. There is focal sparing abutting the gallbladder fossa. No focal hepatic lesion. There is no intrahepatic biliary duct dilatation seen. GALLBLADDER: The gallbladder is physiologically distended without evidence of stones, sludge, polyps, wall thickening or pericholecystic fluid. There is adenomyomatosis of the gallbladder wall. Negative sonographic Burrows's sign. COMMON BILE DUCT: Normal in caliber measuring 0.5 cm in diameter. RIGHT KIDNEY: No hydronephrosis. No renal calculi or focal parenchymal lesions. The kidney measures 10.0 cm in maximum dimension. LEFT KIDNEY: No hydronephrosis. No renal calculi or focal parenchymal lesions. The kidney measures 10.7 cm in maximum dimension. SPLEEN: The spleen measures 8.5 cm in maximum dimension. FREE FLUID: None. US/US abdomen complete IMPRESSION: 1. Increased hepatic echogenicity, likely on the basis of hepatic steatosis. No focal lesion seen. 2. Gallbladder demonstrating adenomyomatosis of the wall, however otherwise images normally. 3. Remainder of the examination is normal. Electronically signed by: Valentin Garza MD 10/18/2024 09:33 AM EDT
--- OUTSIDE RECORDS SUMMARY | 2024-10-18 09:08 | XMS_ITS | Encounter Summary ---
Author Organization [employer] Address [address] [place] [address] [address] [address] Care Team Providers Care Stator Winder Name Role Phone Hallie Rosario MD Primary Care Provider [phone] Encounter Details Date Type Department Care Team (Latest Contact Info) Description 05/04/2019 Abstract [facility] CONVERSIONS Dental, Provider, DDS Social History Tobacco [...] Description 11/29/2024 9:45 AM EDT Office Visit [facility] MED & PEDS [address] [place] [address] Hallie Rosario MD [address] [place] [address] 12/27/2024 9:45 AM EDT Office Visit [facility] OPTOMETRY [address] [place] [address] Elvia Barrera OD [address] [place] [address] documented as of this encounter Visit Diagnoses Not on filedocumented in this encounter Care Teams Stator Winder Relationship Specialty Start Date End Date Hallie Rosario MD [address] [place] [address] PCP - General Family Medicine 10/18/15 documented as of this encounter
--- OUTSIDE RECORDS SUMMARY | 2024-10-18 09:08 | XMS_ITS | Encounter Summary ---
Author Organization [employer] Address [address] [facility] 7t [place] [address] Care Team Providers Care Brass Polisher Name Role Phone Hallie Rosario MD Primary Care Provider [phone] Encounter Details Date Type Department Care Team ([facility] st Contact Info) Description 07/07/2023 Orders Only [facility] MEDICINE [address] [place], [place] [phone] Isha Santos NP [address] [place], [place] [phone] Back pain, unspecified back location, unspecified back [...] the past 12 months, has t he [employer] oil [employer] company threatened to shut [...] Description 11/29/2024 9:45 AM EDT Office Visit [facility] MED & PEDS [address] [place] [address] Hallie Rosario MD [address] [place] [address] 12/27/2024 9:45 AM EDT Office Visit [facility] OPTOMETRY [address] [place] [address] Tarka, Elvia, OD [address] [place] [address] documented as of this encounter Visit Diagnoses Diagnosis Back pain, unspecified back location, unspecified back pain laterality, unspecified chronicity- Primary documented in this encounter Additional Health Concerns Assessment Noted Time PHQ-9 Depression Total Score: 23 023 9:33 AM EST documented as of this encounter Care Teams Brass Polisher Relationship Specialty Start Date End Date Hallie Rosario MD [address] [place] [address] PCP - General Family Medicine 10/18/15 documented as of this encounter
--- OUTSIDE RECORDS SUMMARY | 2024-10-18 09:08 | XMS_ITS | Clinical Summary ---
Author Organization [employer] Address [address] [place] [address] [address] [place] [address] Care Team Providers Care [employer] Ticket Checker Name Role Phone Hallie Rosraio MD Primary Care Provider Allergies Active Allergy Reactions Criticality Noted Date Comments Penicillins 02/17/2013 Medications Diclofenac Sodium (Voltaren) 1 % gel apply (2G) by topical route 4 times every day to the affected area(s) 019 Active ergocalciferol (Vitamin D2) 1.25 MG (91672 UT) capsuleIndication s:Vitamin D deficiency Take 1 [...] Care Team Description 09/26/2024 Telephone [facility] [address] [place] [address] Hallie Rosario MD Results 09/21/2024 Telephone [facility] [address] [place] [address] Hallie Rosario MD Results; Medication Question 09/21/2024 Orders Only [facility] [address] [place] [address] Hallie Rosario MD Transaminitis (Primary Dx) 09/20/2024 9:15 AM EDT Office Visit [facility] [address] [place] [address] Hallie Rosario MD Vitamin D deficiency (Primary Dx); Acquired hypothyroidism; Dietary counseling; Exercise counseling; Encounter for immunization; Routine general medical examination at a health care facility; Anxiety; Elevated BP without diagnosis of hypertension; Gastroesophageal reflux disease, unspecified whether esophagitis present 09/20/2024 Orders Only [facility] [address] [place], [place] [phone] Hallie Rosario MD 09/20/2024 Telephone [facility] [address] [place], [place] [phone] Hallie Rosario MD pcp other 09/20/2024 Travel 09/09/2024 Patient Outreach [facility] [address] [place], [place] [phone] Hallie Rosario MD Pre-visit Planning (SDOH screening positive and Tobacco screening negative) from Last 3 Months Immunizations Immunization Administration Dates Next Due Influenza injectable quadriv [...] Description 11/29/2024 9:45 AM EDT Office Visit [facility] [address] [place] [address] Hallie Rosario MD [address] [place] [address] 12/27/2024 9:45 AM EDT Office Visit [facility] [address] [place] [address] Elvia Barrera, OD [address] [place] [address] Health Maintenance Due Date Last Done Comments CT Colonography 1970 FIT DNA/Cologuard 1971 FIT 1970 HIV Screening 1970 Sigmoidoscopy 1970 Hepatitis B Vaccines (1 of 3 - 19+ 3-dose series) 1990 Zoster Vaccines (1 of 2) 2021 FOBT 2023 2022 DTaP/Tdap/Td Vaccines (2 - Td or Tdap) 05/05/2023 05/05/2013 COVID-19 Vaccine ( season) 2024 07/31/2021, 02/07/2021, 01/11/2021 Influenza Vaccine (#1) 2024 , 04/08/2019, 05/14/2018, Additional history exists SDOH Screening 09/09/2025 09/09/2024 Alcohol/Substance Use Screening 09/20/2025 09/20/2024 Depression Screening 09/20/2025 09/20/2024, 09/21/19 25 Disability Screening 09/20/2025 09/20/2024 Tobacco Screening 09/20/2025 09/20/2024 Diabetes: Hemoglobin A1C 09/27/2025 09/27/2024 Mammogram 06/07/2026 06/07/2024, 07/1 06/2022, 11/13/2021, Additional history exists Cervical Cancer Screening 04/26/2027 HPV/Cotest 04/26/2027 11/25/2022, 08/25/2017 Pap Smear 04/26/2027 04/26/2024, 11/25/2022 Colonoscopy 2032 2022, 2022 Colorectal Cancer Screening 2032 RSV Patients and Patients Aged 60 years or older (1 - 1-dose 75+ series) 2046 Pneumococcal Vaccine: 50+ Years Completed 09/20/2024 Hepatitis C Screening Completed 09/27/2024 HIB Vaccines Aged Out No longer eligi [...] patient's age to complete this topic Meningococcal B Vaccine Aged Out No l onger eligible based on patient's age to complete [...] Procedure Name Priority Date/Time Associated Diagnosis Comments IRON AND TOTAL IRON BINDING CAPACITY Routine 09/27/2024 10:43 AM EDT Transaminitis FERRITIN Routine 09/27/2024 10:43 AM EDT Transaminitis HEMOGLOBIN A1C Routine 09/27/2024 10:43 AM EDT Transaminitis HEPATITIS B SURFACE ANTIBODY, QUALITATIVE Routine 09/27/2024 10:03 AM EDT Transaminitis HEPATITIS B SURFACE ANTIGEN, EIA Routine 09/27/2024 10:03 AM EDT Transaminitis HEPATITIS C AB W/REFL TO HCV RNA, QN, PCR Routine 09/27/2024 10:03 AM EDT Transaminitis T4, FREE Routine 09/20/2024 10:10 AM EDT [...] Relevant to Health Maintenance Results * (ABNORMAL) Iron And Total Iron Binding Capacity (09/27/2024 10:43 AM EDT) Iron 76 30 - 160 mcg/dL [facility] Total Iron Binding Capacity 212(L) 228 - 428 mcg/dL [facility] Percent Iron Saturation 36 15 - 50 % [facility] Unsaturated Iron Binding 136 ug/dL [facility] Blood Venous blood specimen / Unknown 09/27/2024 10:43 AM EDT 09/27/2024 2:20 PM EDT us Hallie Rosario MD LAB BLOOD ORDERABLES Final Re sult [facility] [address] [place], [place] [phone] * (ABNORMAL) Hemoglobin A1c (09/27/2024 10:43 AM EDT) Hemoglobin A1c 6.4(H) <6.0 % [facility] Comment:Hemoglobin A1C Refer ence Range Adults: 4.8 - 6.0 % Non diabetic: < 6.0 % Goal: < 7.0 %Additional Action Suggested: > 8.0 %Note: Hemoglobin A1c results are invalid for patients with abnormal amounts of HbF. Blood transfusions may impact the HbA1c concentration in the patient sample. Estimated Average Glucose 137 mg/dL [facility] Comment:eAG = Estimated ave rage glucose which is %A1C expressed asaverage glucose, using the formula of the Z3T-SzebvbiMqifdsg Glucose study (ADAG), Diabetes Care, Vol.31,#8,2007 Blood Venous blood specimen / Unknown 09/27/2024 10:43 AM EDT 09/27/2024 2:20 PM EDT us Hallie Rosario MD LAB BLOOD ORDERABLES Final Re sult Performing Organization Address [facility]/ZIP Co de Phone Number [facility] [address] [place] [phone] * Ferritin (09/27/2024 10:43 AM EDT) Ferritin 222 10 - 250 ng/mL [facility] Blood Venous blood specimen / Unknown 09/27/2024 10:43 AM EDT 09/27/2024 2:20 PM EDT us Hallie Rosario MD LAB BLOOD ORDERABLES Final Re sult Performing Organization Address [facility]/ZIP Co de Phone Number [facility] [address] [place] [phone] * Hepatitis C Antibody with Reflex to HCV, RNA, Quantitative, Real-Time PCR (09/27/2024 10:03 AM EDT) Hepatitis C Antibody Nonreactive Nonreactive [facility] Comment:Antibodies to HCV no t detected; does not exclude early acuteHCV infection. Blood Venous blood specimen / Unknown 09/27/2024 10:03 AM EDT 09/27/2024 2:20 PM EDT us Hallie Rosario MD LAB BLOOD ORDERABLES Final Re sult Performing Organization Address [facility]/ZIP Co de Phone Number [facility] [address] [place] [address] [phone] * Hepatitis B surface antigen, EIA (09/27/2024 10:03 AM EDT) [facility] Hepatitis B Surface Ag Negative Negative [facility] Blood Venous blood specimen / Unknown 09/27/2024 10:03 AM EDT 09/27/2024 2:20 PM EDT Hallie Rosario MD LAB BLOOD ORDERABLES Final Re sult Performing Organization Address [facility] de Phone Number [facility] [address] [place] [phone] * Hepatitis B Surface Antibody, Qualitative (09/27/2024 10:03 AM EDT) [facility] ~Hepatitis B Surface Antibody NONREACTIVE Nonreactive [facility] Comment:Nonreactive: < 8.00 mIU/mL Blood Venous blood specimen / Unknown 09/27/2024 10:03 AM EDT 09/27/2024 2:20 PM EDT Hallie Rosario MD LAB BLOOD ORDERABLES Final Re sult Performing Organization Address [facility] de Phone Number [facility] [address] [place] [phone] * (ABNORMAL) Basic Metabolic Panel, Fasting (09/20/2024 10:10 AM EDT) [facility] Sodium 140 135 - 145 mmol/L [facility] Potassium 3.9 3.3 - 5.1 mmol/L [facility] Chloride 106 96 - 108 mmol/L [facility] Carbon Dioxide 28 22 - 29 mmol/L [facility] Anion Gap 10(L) 12 - 20 [facility] Urea Nitrogen (BUN) 11 9 - 16 mg/dL [facility] Creatinine, Serum 0.82 0.5 - 1.4 mg/dL [facility] Estimated Glomerular Filt Rate >60 [facility] Comment:Chronic Kidney Disea se: Estimated GFR < 60 mL/min/1.59j0Wlqmte Kidney Disease: Estimated GFR < 15 mL/min/1.73m2 Glucose Fasting 101(H) 60 - 99 mg/dL [facility] Comment:A fasting glucose fr om 100-125 mg/dl is considered impaired(pre-diabetes). Calcium 9.3 8.4 - 10.2 mg/dL [facility] Blood Venous blood specimen / Unknown 09/20/2024 10:10 AM EDT 09/20/2024 2:04 PM EDT us Hallie Rosario MD LAB BLOOD ORDERABLES Final Re sult [facility] [address] [place] [phone] * Vitamin D, 25-Hydroxy, Total, Immunoassay (09/20/2024 10:10 AM EDT) Pathologist [facility] Vitamin D 25-OH Total 33.0 >30 ng/mL [facility] Comment: Health Based Reference Values*< 20 ??ng/mL ??Ttoicvjqm12-28 ng/mL ??Insufficient> 30 ??ng/mL ??Sufficient*Rogelio GARCIA. N [...] ORDERABLES Final Re sult Performing Organization Address [facility] Co de Phone Number [facility] [address] [place] [phone] * (ABNORMAL) TSH W/Reflex to FT4 (09/20/2024 10:10 AM EDT) Pathologist [facility] TSH reflex Free T4 6.64(H) 0.32 - 4.0 uIU/mL [facility] Blood Venous blood specimen / Unknown 09/20/2024 10:10 AM EDT 09/20/2024 2:04 PM EDT Hallie Rosario MD LAB BLOOD ORDERABLES Final Re sult Performing Organization Address [facility] de Phone Number [facility] [address] [place] [phone] * (ABNORMAL) CBC auto differential (09/20/2024 10:10 AM EDT) Pathologist [facility] White Blood Count 4.0(L) 4.8 - 10.8 X10*3/uL [facility] Red Blood Count 4.20 4.20 - 5.50 X10*6/uL [facility] Hemoglobin 13.1 12.0 - 16.0 g/dl [facility] Hematocrit 39.0 37.0 - 47.0 % [facility] Mean Corpuscular Volume 92.9 80.0 - 98.0 fL [facility] Mean Corpuscular Hemoglobin 31.2 27.0 - 33.0 pg [facility] Mean Corpuscular HGB Conc 33.6 31.0 - 35.0 g/dl [facility] Red Cell Distribution Width 12.6 11.0 - 16.0 % [facility] Platelet Count 220 160 - 400 X10*3/uL [facility] Mean Platelet Volume 10.2 9.4 - 12.3 fL [facility] Neutrophils Percent Auto 47.3 45 - 73 % [facility] Imm Gran Pct Auto 0.2 0.0 - 0.4 % [facility] Lymphocytes Percent Auto 40.0 20 - 40 % [facility] Monocytes Percent Auto 8.5 2 - 11 % [facility] Eosinophils Percent Auto 3.0 0 - 4 % [facility] Basophils Percent Auto 1.0 0 - 2 % [facility] NRBC Pct Auto 0.0 0.0 - 0.2 /100WBC [facility] Neutrophils Absolute Auto 1.9(L) 2.0 - 8.3 x10*3/uL [facility] Imm Gran Abs Auto 0.01 0.00 - 0.03 X10*3/uL [facility] Lymphocytes Absolute Auto 1.6 1.2 - 4.9 X10*3/uL [facility] Monocytes Absolute Auto 0.3 0.1 - 1.2 X10*3/uL [facility] Eosinophils Absolute Auto 0.1 0.0 - 0.4 X10*3/uL [facility] Basophils Absolute Auto 0.0 0.0 - 0.2 X10*3/uL [facility] NRBC Abs Auto 0.000 0.0 - 0.012 X10*3/uL [facility] Blood Venous blood specimen / Unknown 09/20/2024 10:10 AM EDT 09/20/2024 2:04 PM EDT us Hallie Rosario MD LAB BLOOD ORDERABLES Final Re sult [facility] [address] [place] [phone] [phone] * T4, Free (09/20/2024 10:10 AM EDT) Free T4 (Free Thyroxine) 0.85 0.71 - 1.85 ng/dL [facility] 09/20/2024 10:1 0 AM EDT 09/20/2024 2:04 PM EDT Hallie Rosario MD LAB BLOOD ORDERABLES Final Re sult Performing Organization Address [facility]/ZIP Co de Phone Number [facility] [address] [place] [phone] * (ABNORMAL) Hepatic Function Panel (09/20/2024 10:10 AM EDT) [facility] Bilirubin, Total 1.0 0.0 - 1.0 mg/dL [facility] Bilirubin, Direct 0.2 0.0 - 0.5 mg/dL [facility] Aspartate Amino Transferase 45(H) 5 - 31 U/L [facility] Alanine Aminotransferase 67(H) 0 - 31 U/L [facility] Total Protein 7.6 6.5 - 8.0 g/dL [facility] Albumin Level 4.2 3.5 - 5.0 g/dL [facility] Alkaline Phosphatase 86 39 - 117 U/L [facility] Blood Venous blood specimen / Unknown 09/20/2024 10:10 AM EDT 09/20/2024 2:04 PM EDT Hallie Rosario MD LAB BLOOD ORDERABLES Final Re sult Performing Organization Address City/[facility]/ZIP Co de Phone Number [facility] [address] [place] [address] [phone] * (ABNORMAL) Lipid Panel, Standard (09/20/2024 10:10 AM EDT) Triglycerides 168(H) <150 mg/dL [facility] Comment:Desirable Triglyceri de: less than 150 mg/dLBorderline High Triglyceride 150-199 mg/dLHigh Triglyceride: 200-499 mg/dLVery High Triglyceride: greater than or equal to 5OO mg/dL Cholesterol 206(H) <200 mg/dL [facility] Comment:Desirable Cholestero l: less than 200 mg/dLBorderline High Cholesterol: 200-239 mg/dLHigh Cholesterol: greater than 239 mg/dL LDL Cholesterol Calculated 122(H) <100 mg/dL [facility] Comment:Desirable LDL: less than 100 mg/dLNear Optimal/Above Optimal LDL: 110- 129 mg/dLBorderline High LDL: 130-159 mg/dLHigh LDL: 160-189 mg/dLVery High LDL: greater than or equal to 190 mg/dL HDL Cholesterol 51 >40 mg/dL [facility] Comment:Desirable HDL: great er than 40 mg/dL Note: This HDL assay may give artificially low results in patients with liver disease. Blood Venous blood specimen / Unknown 09/20/2024 10:10 AM EDT 09/20/2024 2:04 PM EDT us Hallie Rosario MD LAB BLOOD ORDERABLES Final Re sult [facility] [address] [place] [phone] * BI Mammogram Screening Tomosynthesis Bilateral (06/07/2024 11:50 AM EST) Anatomical Region Laterality Modality Breast Bilateral Mammography 06/07/2024 11:5 0 AM EST Narrative 06/13/2024 4:10 PM EST ? [facility] [place] ? [address] ?[place] [address] ? Mammography Report ? Signed ? Patient: Yoana Powell ?MR# ?? : [id number] ? : 1970 ?Acct:[id number] ? Age/Sex: 54 / F ?ADM Date: 01/07/25 ? Loc: HO.MAMMO ? Attending Dr: Josef Kimble MD ? Ordering Physician: Josef Kimble MD ?Results: 1Negativ ?? e ? Date of Service: 06/07/24 ?Follow Up: 1 Year From Orig ?? inal Mammogram ? Procedure(s): MM tomosynthesis screening BI ?? Accession Number(s): [id number] ? cc: Hallie Rosario MD; Josef Kimble [...] DD/ 1150 ? TD/TT: 06/07/24 1202 ? Die Designer: ? Procedure Note Donotuseinterpreter, Image - 06/13/2024 [facility] [address] [place], [place] [address] Mammography Report Signed Patient: Yoana Powell AMR# : [id number] : 1970Acct:[id number] Age/Sex: 54 / FADM Date: 06/07/24 Loc: HO.MAMMO Attending Dr: Josef Kimble MD Ordering Physician: Josef Kimble MDResults: 1Negativ e Date of Service: 06/07/24Follow Up: 1 Year From Orig inal Mammogram Procedure(s): MM tomosynthesis screening BI Accession Number(s): [id number] cc: Hallie Rosario MD; Josef Kimble MD [...] 06/13/24 1607 DD/ 1150 TD/TT: 06/07/24 1202 Die Designer: [facility] External Provider IMG BI PROCEDURES Final Result * Pap Smear (04/26/2024 8:22 AM EST) 04/26/2024 8:22 AM EST 04/26/2024 11:25 AM EST [facility] - 05/03/2024 10:21 AM EST ----- ------- Name: Yoana Powell ? Age/Sex: 53/F ? : 1970 Unit#: [id number] ?? Attend Dr: Josef Kimble MD ?Re04/26/24 ?Status: DEP REF ? Location: HO.LNP ?Disch: ? ----- ------- SPEC : [id number] ?RECD: 04/26/24 ? STATUS: ??SOUT ? REQ NUM: [id number] ? GUERDA: 04/26/24 ? SUBM DR: Josef [...] Copies To: ?? Hallie Rosario MD ?? [facility] ?? [address] ?? [place] [address] ?? [phone] ?? Josef Kimble MD ?? [facility] ?? [address] ?? [place] [address] ?? [phone] ----- ------- Signed (signature on file) BRITNI Wooten (ASCP) 05/03/24 1021 ? ----- ------- ? END OF REPORT ? us Generic External Data Provider LAB CYTOLOGY RAY NAVAS Final Result [facility] [address] [place] [phone] * (ABNORMAL) Image-Guided Pap with Age-Based Screening Protocols (11/25/2022 10:23 AM EDT) Comment [facility] Comment: This order for age-based cervical cancer and STI screening follows ACOG guidelines(PB 168, 140, JTN288). See individual assays for performing site location. Clinical Information: None given [facility] LMP: NONE GIVEN [facility] Prev. PAP: NONE GIVEN [facility] Prev. BX: NONE GIVEN [facility] SOURCE: None given [facility] Statement Of Adequacy: [facility] Comment: Satisfactory for evaluation. Endocervical/transformation zone component present. General Categorization: Cytology Results: Epithelial Cell Abnormality(A) [facility] Interpretation/ Result: Atypical Squamous Cells of Undetermined Significance (ASC-US)(A) [facility] COMMENT: This Pap test has been evaluated with computer assisted technology. [facility] Cytotechnologis t: [employer] [place] [facility] Comment: WAC, CT(ASCP) CT screening location: [address] ??[address] PATHOLOGIST: [employer] [facility] Comment: Jazzmine Calhoun D.O. Board Certified in Anatomic, Clinical and Cytopathology (electronic signature) Consulting Pathologist [facility] [address] [place] [address] (Always Message) [employer] [place] [facility] Comment: EXPLANATORY NOTE: The Pap is a [...] information. HPV nRNA E6/E7 Detected(A) Not Detected [employer] [place] [facility] Comment: Methodology: Cartographic Drafter-Mediated Amplification This assay detects E6/E7 viral messenger RNA (mRNA) from 14 high-risk HPV types (16,18,31,33,35,39,45,51,52,56,58,59,66,68). Cervical sources are required for HPV testing. If a vaginal source from a patient who has had a total hysterectomy with removal of cervix was submitted, please contact the testing laboratory for alternative testing options. For additional information, please refer to http://education.sli.do/faq/DZU164m3 (This link if provided for information/ educational purposes only.) Cervix 11/25/2022 10:2 3 AM EDT 11/26/2022 2:57 AM EDT us Hallie Rosario MD LAB BLOOD ORDERABLES Final Re sult [facility] [address] [place] [address], [place] [phone] [employer] [place] [facility] [address] [place] [phone] * iFOBT (2022 4:55 PM EST) Stool Historical Provider POINT OF CARE TEST ENTER/ EDIT ORDERABLES Final Result * Colonoscopy (2022 4:55 PM EST) Historical Provider HEALTH MAINTENANCE Final Result from Last 3 Months or Most Recently Relevant to Health Maintenance Insurance Care Teams [employer] Ticket Checker Relationship Specialty Start Date End Date Hallie Rosario MD [address] [place] [address] PCP - General Family Medicine 10/18/15
--- OUTSIDE RECORDS SUMMARY | 2024-10-18 09:08 | XMS_ITS | Encounter Summary ---
Author Organization [employer] Address [address] [facility] [address] [place] [address] Care Team Providers Care Specialty Sales Representative Name Role Phone Hallie Rosario MD Primary Care Provider [phone] Reason for Visit * Reason Comments Med Refill Encounter Details Date Type Department Care Team ([facility] st Contact Info) Description 06/22/2023 Refill [facility] [address] [place] [address] Hallie Rosario MD [address] [place] [address] Vitamin D deficiency Social History Tobacco Use [...] Description 11/29/2024 9:45 AM EDT Office Visit [facility] [address] [place] [address] Hallie Rosario MD [address] [place] [address] 12/27/2024 9:45 AM EDT Office Visit [facility] [address] [place] [address] Tarka, Elvia, OD [address] [place] [address] documented as of this encounter Visit Diagnoses Diagnosis Vitamin D deficiency documented in this encounter Additional Health Concerns Assessment Noted Time PHQ-9 Depression Total Score: 23 023 9:33 AM EST documented as of this encounter Care Teams Specialty Sales Representative Relationship Specialty Start Date End Date Hallie Rosario MD [address] [place] [address] PCP - General Family Medicine 10/18/15 documented as of this encounter
--- OUTSIDE RECORDS SUMMARY | 2024-10-18 09:08 | XMS_ITS | Encounter Summary ---
Author Organization [employer] Address [address] [place] [address] Care Team Providers Care Tentering Machine Feeder Name Role Phone Hallie Rosario MD Primary Care Provider [phone] Reason for Visit * Reason Comments Med Refill Encounter Details Date Type Department Care Team ([facility] Contact Info) Description 07/26/2022 Refill [facility] [address] [place] [address] Hallie Rosario MD [address] [place] [address] Acquired hypothyroidism Social History Tobacco Use Types [...] Encounters Date Type Department Care Team ([facility] Contact Info) Description 11/29/2024 9:45 AM EDT Office Visit [facility] [address] [place] [address] Hallie Rosario MD [address] [place], [place] [phone] 12/27/2024 9:45 AM EDT Office Visit [facility] [address] [place] [address] Elvia Barrera, OD [address] [place] [address] documented as of this encounter Visit Diagnoses Diagnosis Acquired hypothyroidism Unspecified hypothyroidism documented in this encounter Additional Health Concerns Assessment Noted Time PHQ-9 Depression Total Score: 23 023 9:33 AM EST documented as of this encounter Care Teams Tentering Machine Feeder Relationship Specialty Start Date End Date Hallie Rosario MD [address] [place] [address] PCP - General Family Medicine 10/18/15 documented as of this encounter
--- OUTSIDE RECORDS SUMMARY | 2024-10-18 09:08 | XMS_ITS | Encounter Summary ---
Author Organization [employer] Address [address] [place] [address] Care Team Providers Care Design/Animation Instructor Name Role Phone Hallie Rosario MD Primary Care Provider [phone] Encounter Details Date Type Department Care Team (Late st Contact Info) Description 05/20/2022 Orders Only [facility] [address] [place] [address] Hallie Rosario MD [address] [place], [place] [phone] Social History Tobacco Use Types Packs/Day Years [...] Description 11/29/2024 9:45 AM EDT Office Visit [facility] [address] [place] [address] Hallie Rosario MD [address] [place], [place] [phone] 12/27/2024 9:45 AM EDT Office Visit [facility] [address] [place] [address] Elvia Barrera, OD [address] [place] [address] documented as of this encounter Visit Diagnoses Not on filedocumented in this encounter Care Teams Design/Animation Instructor Relationship Specialty Start Date End Date Hallie Rosario MD [address] [place] [phone] PCP - General Family Medicine 10/18/15 documented as of this encounter
--- OUTSIDE RECORDS SUMMARY | 2024-10-18 09:08 | XMS_ITS | Encounter Summary ---
Author Organization [employer] Address [address] [facility] [address] [place] [address] Care Team Providers Care Back Order Clerk Name Role Phone Hlalie Rosario MD Primary Care Provider [phone] Encounter Details Date Type Department Care Team ([facility] st Contact Info) Description 05/28/2024 Orders Only [facility] [address] [place] [address] ProviderIsaiah MD Social History Tobacco Use Types [...] Description 11/29/2024 9:45 AM EDT Office Visit [facility] PED[facility] [address] [place] [address] Hallie Rosario MD [address] [place] [address] 12/27/2024 9:45 AM EDT Office Visit [facility] [address] [place] [address] Elvia Barrera, OD [address] [place] [address] documented as of this encounter Procedures Procedure [...] EST Narrative 06/13/2024 4:10 PM EST ? [facility] ? [address] ?[place] [address] ? Mammography Report ? Signed ? Patient: Giles Martinez,Yoana A ?MR# ?? : [id number] ? : 1970 ?Acct:[id number] ? Age/Sex: 54 / F ?ADM Date: 01/07/25 ? Loc: HO.MAMMO ? Attending Dr: Josef Kimble MD ? Ordering Physician: Josef Kimble MD ?Results: 1Negativ ?? e ? Date of Service: 06/07/24 ?Follow Up: 1 Year From Orig ?? inal Mammogram ? Procedure(s): MM tomosynthesis screening BI ?? Accession Number(s): [id number] ? cc: Hallie Rosario MD; Josef Kimble [...] DD/ 1150 ? TD/TT: 06/07/24 1202 ? Machine Made Shoe Unit Worker: ? Procedure Note Donotgogointerpreter, Image - 06/13/2024 [facility] [address] [place], [place] [address] Mammography Report Signed Patient: Yoana Powell AMR# : [id number] : 1970Acct:[id number] Age/Sex: 54 / FADM Date: 06/07/24 Loc: HO.MAMMO Attending Dr: Josef Kimble MD Ordering Physician: Josef Kimble MDResults: 1Negativ e Date of Service: 06/07/24Follow Up: 1 Year From Orig inal Mammogram Procedure(s): MM tomosynthesis screening BI Accession Number(s): [id number] cc: Hallie Rosario MD; Josef Kimble MD [...] 06/13/24 1607 DD/ 1150 TD/TT: 06/07/24 1202 Machine Made Shoe Unit Worker: [facility] External Provider IMG BI PROCEDURES Final Result * Colonoscopy (2022 4:56 PM EST) Historical Provider [...] documented as of this encounter Care Teams Back Order Clerk Relationship Specialty Start Date End Date Hallie Rosario MD [address] [place] [address] PCP - General Family Medicine 10/18/15 documented as of this encounter
--- OUTSIDE RECORDS SUMMARY | 2024-10-18 09:08 | XMS_ITS | Encounter Summary ---
Author Organization [employer] Address [address] [place] [address] Care Team Providers Care Olive Grower Name Role Phone Hallie Rosario MD Primary Care Provider [phone] Encounter Details Date Type Department Care Team (Late Contact Info) Description 05/09/2022 Telephone [facility] PEDS [address] [place], [place] [phone] Hallie Rosario MD [address] [place], [place] [phone] Social History Tobacco Use Types Packs/Day Years [...] Description 11/29/2024 9:45 AM EDT Office Visit [facility] PEDS [address] [place], [place] [phone] Hallie Rosario MD [address] [place], [place] [phone] 12/27/2024 9:45 AM EDT Office Visit [facility] OPTOMETRY [address] [place] [address] Elvia Barrera, OD [address] [place] [address] documented as of this encounter Visit Diagnoses Not on filedocumented in this encounter Care Teams Olive Grower Relationship Specialty Start Date End Date Hallie Rosario MD [address] [place] [address] PCP - General Family Medicine 10/18/15 documented as of this encounter
== END 2024-10-18 08:51 | disposition home or self-care (01) ==
LOC: HO.HMGCX 08:50
PROVIDERS: PCP Pediatrics; Visit Provider Pediatrics
DX: R74.01 Elevation of levels of liver transaminase levels (principal)
CPT/HCPCS: 76700

== ENCOUNTER → 2024-10-18 08:52 | Outpatient (BNV) | payer OTHER, SELFPAY | PROVIDERS: PCP Pediatrics; Visit Provider Radiology Diagnostic Radiology | DX: R74.01 Elevation of levels of liver transaminase levels (principal) | CPT/HCPCS: 76700 ==

== ENCOUNTER 2024-11-22 09:27 | Outpatient (AMB) | payer OTHER, SELFPAY ==
--- NOTE | 2024-11-22 09:32 | A.OFFVIS_ITS ---
Vital Signs 11/22/24 09:42 Height 5 ft 3 in Weight 164 lb BMI 29.0 BP 136/82 Blood Pressure Location Rt brachial Position Sitting Pulse 76 Pulse Source Pulse Oximeter Pulse Oximetry (%) 97 Oxygen Delivery Method Room Air Intake Visit Reasons: Follow up GERD Intake Note: Est pt for mgmt of GERD. ROSALVA 2022. CC: Railroad Purchasing Agent Required: Yes Allergies Penicillins Allergy (Unknown, Verified 11/22/24 09:33) Unknown-childhood allergy HPI HPI Follow up GERD: Details: Assessment & Plan (1) Chronic idiopathic constipation: Code(s): K59.04 - Chronic idiopathic constipation Plan: Pakistani #[id number], Cha She continues on lansoprazole bid and famotidine qhs, but she is only a bit better. She is taking the bisacodyl and it is moving her bowels well, but she wakes up in the middle of this night with a silent pain. This has worsened with the bisacodyl, and when she moves her bowels the stools are still very hard. Since she has failed colace, senna, fiber, bisacodyl and Miralax we will progress to Linzess 145mcg. I don't think that her swallowing will improve until we get her bowels moving, also, if we can establish this we can consider bentyl for esoph motility. rov 4-5 weeks to eval. (2) GERD (gastroesophageal reflux disease): Code(s): K21.9 - Gastro-esophageal reflux disease without esophagitis Medications: New linaclotide (Linzess) 145 mcg PO QAM 30 caps 3RF K59.04 - Chronic idiopathic constipation Discontinued bisacodyl Discontinued Reason: Doctor's Order 10 mg (2 x 5 mg) PO BEDTIME 30 days 60 tabs 3RF K59.04 - Chronic idiopathic constipation TODAY'S VISIT Pakistani #dtr translates per pt request She did not feel that the Linzess at the 145mcg dose helped her at all. She also had an objection to taking pills. However, her GERD had not improved. This prompts education regarding the relation between CIC and GERD. It is difficult to control one w/o controlling the other. We discuss Smooth Move Tea. She also takes magnesium. She continues on lansoprazole bid and famotidine qhs. However, wtih discussion she has not been taking the lansoprazole as her PCP is giving her confusing and different directions taking her off of it and rx'ing famotidine - which is clearly not controlling her GERD. With education, she is agreeable to switching to lansoprazole. [facility] Medical History ASCUS with positive high risk HPV cervical History of COVID-19 Anemia Gastroesophageal reflux disease Thyroid activity decreased Surgical History H/O colonoscopy History of tubal ligation History of esophagogastroduodenoscopy (EGD) Social History Are you a primary student career development specialist to a significant other at home: No Do you presently have visiting nurse or other home services: No Patient Tobacco Use Status: Never used Tobacco Female Reproductive History Menstrual Age of Menarche: 14 Review of Systems Const Denies fatigue, Denies fever(s), Denies night sweats, Denies poor appetite and Denies weight loss ENT Reports Normal hearing present, Denies dental pain, Denies dysphagia, Denies hearing loss, Denies mouth pain, Denies odynophagia, Denies throat swelling, Denies tongue swelling and Reports other (Dentition adequate) Card Reports no additional complaints Resp Reports no additional complaints GI Details: Denies abdominal pain, Denies melena, Denies bloating, Denies hematochezia, Reports constipation, Denies GI cramping, Denies dysphagia, Denies excessive flatus, Denies early satiety, Reports heartburn, Denies diarrhea, Denies nausea, Denies odynophagia, Denies vomiting and Denies hematemesis Skin/Breast Denies pruritus, Denies lesions, Denies rash and Denies jaundice Neuro Reports Normal hearing present and Denies Abnormal speech present Endo Denies fatigue Aller/Immun Denies throat swelling and Denies tongue swelling Physical Exam Vital Signs: Last Vital Signs Pulse 76 11/22/24 09:42 BP 136/82 11/22/24 09:42 Pulse Ox 97 11/22/24 09:42 Oxygen Delivery Method Room Air 11/22/24 09:42 BMI result Body Mass Index 29.0 Const General: cooperative, no acute distress, well developed and well groomed Nutritional Appearance: well nourished and obese Orientation/consciousness: oriented to person, oriented to place and oriented to time Limitations: language barrier HEENT Head: Yes normocephalic and Yes atraumatic Eyes General: appearance normal, both eyes and all related structures Pupils: Equal, round and reactive pupils present Neck Neck: Yes normal visual inspection and Yes no lymphadenopathy Thyroid: Thyroid normal Resp Effort & Inspection: normal respiratory effort and able to speak in complete sentences Auscultation: clear to auscultation bilaterally Cardio Rate: regular rate Rhythm: regular rhythm Heart sounds: Normal, physiologic split S2 sound present Peripheral pulses: radial pulses present and posterior tibial pulses present GI Inspection: No distended, No Abdominal panniculus present and Yes obesity Palpation (GI): Soft to palpation, nontender, no guarding, not rigid and No hepatosplenomegaly present Percussion: Yes normal to percussion Auscultation: normal bowel sounds Rectal Exam - Female: deferred Skin General skin exam: no rashes or lesions noted, turgor normal, skin not dry, no jaundice, No spider nevi and no striae Rashes: no rashes Nails: normal Neuro General: oriented to person, oriented to place and oriented to time Cranial nerves: Yes Equal, round and reactive pupils present and Yes Normal h earing present Speech: No Abnormal speech present Extrem General: Yes normal to inspection, No clubbing, No cyanosis and No edema Psych Appearance: grossly normal and well kempt Mental Status: mental status grossly normal Speech and movement: Normal speech and movement present Affect: normal affect Attitude: cooperative Thought process: Normal thought process present and not confabulating Thought content: Normal thought content present Insight: Limited insight present (Psych) Judgement: Limited judgement present (Psych) Assessment & Plan Assessment & Plan (1) Chronic idiopathic constipation: Code(s): K59.04 - Chronic idiopathic constipation Category: Medical (2) GERD (gastroesophageal reflux disease): Code(s): K21.9 - Gastro-esophageal reflux disease without esophagitis Category: Medical Plan Pakistani #dtr translates per pt request She did not feel that the Linzess at the 145mcg dose helped her at all. She also had an objection to taking pills. However, her GERD had not improved. This p rompts education regarding the relation between CIC and GERD. It is difficult to control one w/o controlling the other. We discuss Smooth Move Tea. She also takes magnesium. She continues on lansoprazole bid and famotidine qhs. However, with discussion she has not been taking the lansoprazole as her PCP is giving her confusing and different directions taking her off of it and rx'ing famotidine - which is clearly not controlling her GERD. With education, she is agreeable to switching to lansoprazole. ROV 6 weeks. Medications: New lansoprazole 30 mg PO BID 60 caps 6RF K21.9 - Gastro-esophageal reflux disease without esophagitis Coding Level of Care Code Est Pt Level 3 (34671) Diagnoses Chronic idiopathic constipation K59.04 GERD (gastroesophageal reflux disease) K21.9
[2024-11-22 09:42] VITALS: BP 136/82; PULSE 76; O2SAT 97; BMI 29.0
--- OUTSIDE RECORDS SUMMARY | 2024-11-22 10:08 | XMS_ITS | Encounter Summary ---
Author Organization [employer] Address [address] [place] [address] Care Team Providers Care Specialist Wound Care Name Role Phone Hallie Rosario MD Primary Care Provider [phone] Encounter Details Date Type Department Care Team (Late st Contact Info) Description 05/20/2022 Orders Only [facility] MED[facility] [address] [place] [address] Hallie Rosario MD [address] [place], [place] [phone] Social History Tobacco Use Types Packs/Day Years [...] 11/29/2024 9:45 AM EDT Office Visit [facility] MED [facility] PEDS [address] [place] [address] Hallie Rosario MD [address] [place], [place] [phone] 12/27/2024 9:45 AM EDT Office Visit [facility] OPTOMETRY [address] [place] [address] Elvia Barrera, OD [address] [place] [address] documented as of this encounter Visit Diagnoses Not on filedocumented in this encounter Care Teams Specialist Wound Care Relationship Specialty Start Date End Date Hallie Rosario MD [address] [place] [phone] PCP - General Family Medicine 10/18/15 documented as of this encounter
== END 2024-11-22 10:08 | disposition home or self-care (01) ==
LOC: HO.HGI 09:28
PROVIDERS: PCP Pediatrics; Visit Provider Nurse Practitioner
DX: K59.04 Chronic idiopathic constipation (principal); K21.9 Gastro-esophageal reflux disease without esophagitis
CPT/HCPCS: 99213

== ENCOUNTER → 2024-11-22 09:27 | Outpatient (BNVA) | payer OTHER, SELFPAY | PROVIDERS: PCP Pediatrics; Visit Provider Nurse Practitioner | DX: K59.04 Chronic idiopathic constipation (principal); K21.9 Gastro-esophageal reflux disease without esophagitis | CPT/HCPCS: 99212 ==

== ENCOUNTER 2024-12-06 09:24 | Outpatient (REF) | payer OTHER, SELFPAY ==
[2024-12-06 16:38] LABS: Free T4 (Free Thyroxine) 0.85 ng/dL (0.71-1.85)
== END 2024-12-06 09:25 | disposition home or self-care (01) ==
LOC: HO.LNP 09:24
PROVIDERS: Visit Provider Pediatrics
DX: E03.9 Hypothyroidism, unspecified (principal)
CPT/HCPCS: 36415; 84439; 84443

== ENCOUNTER 2024-12-10 15:08 | Emergency (ER) | payer OTHER, SELFPAY ==
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
[2024-12-10 15:50] VITALS: BP 144/88; PULSE 76; RESP 18; TEMP 37; O2SAT 100; BMI 29.9
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
--- OUTSIDE RECORDS SUMMARY | 2024-12-10 17:54 | XMS_ITS | Encounter Summary ---
Author Organization [employer] Address [address] [place] [id number] Care Team Providers Care Document Imaging Manager Name Role Phone Hallie Rosario MD Primary Care Provider [phone] Encounter Details Date Type Department Care Team (Late st Contact Info) Description 05/20/2022 Orders Only [facility] [address] [place] [address] Hallie Rosario MD [address], [place] [id number] Social History Tobacco Use Types Packs/Day Years [...] Care Team (Late st Contact Info) Description 12/27/2024 9:45 AM EDT Office Visit [facility] [address] [place] [address] TarElvia alejo, OD [address] [place] [address] documented as of this encounter Visit Diagnoses Not on filedocumented in this encounter Care Teams Document Imaging Manager Relationship Specialty Start Date End Date Hallie Rosario MD [address], [place] [phone] PCP - General Family Medicine 10/18/15 documented as of this encounter
[2024-12-10 18:53] VITALS: BP 143/83; PULSE 66; RESP 16; TEMP 36.8; O2SAT 100
[2024-12-10 19:02] VITALS: BP 143/83; PULSE 66; RESP 16; TEMP 36.8; O2SAT 100
== END 2024-12-10 19:02 | disposition home or self-care (01) ==
PROVIDERS: Emergency Provider Emergency Medicine; PCP Pediatrics
DX: S16.1XXA Strain of muscle, fascia and tendon at neck level, initial encounter (principal); V43.62XA Car passenger injured in collision with other type car in traffic accident, initial encounter; Y92.413 State road as the place of occurrence of the external cause; Y93.9 Activity, unspecified; Y99.9 Unspecified external cause status; M62.838 Other muscle spasm
CPT/HCPCS: 71046; 73030; 99283; 99284

== ENCOUNTER → 2024-12-10 16:09 | Outpatient (BNV) | payer OTHER, SELFPAY | PROVIDERS: Emergency Provider Emergency Medicine; PCP Pediatrics; Visit Provider Radiology Diagnostic Radiology | DX: R07.89 Other chest pain (principal); M25.511 Pain in right shoulder; V89.2XXA Person injured in unspecified motor-vehicle accident, traffic, initial encounter | CPT/HCPCS: 71046; 73030 ==

== ENCOUNTER 2025-01-10 11:32 | Outpatient (AMB) | payer OTHER, SELFPAY ==
--- NOTE | 2025-01-10 11:39 | MHC.OFFVIS ---
Vital Signs 01/10/25 11:41 Weight 160 lb 14.999 oz Blood Pressure Location Lt brachial Position Sitting Intake Visit Reasons: 6 wks Gerd, Eval Lansoprazole Intake Note: Yoana presents in the office as a 6 week follow up for GERD amd Evaluation of Lansoprazole. CC: Allergies Penicillins Allergy (Unknown, Verified 01/10/25 11:41) Unknown-childhood allergy HPI HPI 6 wks Gerd, Eval Lansoprazole: Details: Assessment & Plan (1) Chronic idiopathic constipation: Code(s): K59.04 - Chronic idiopathic constipation Category: Medical (2) GERD (gastroesophageal reflux disease): Code(s): K21.9 - Gastro-esophageal reflux disease without esophagitis Category: Medical Plan Azeri #dtr translates per pt request She did not feel that the Linzess at the 145mcg dose helped her at all. She also had an objection to taking pills. However, her GERD had not improved. This prompts education regarding the relation between CIC and GERD. It is difficult to control one w/o controlling the other. We discuss Smooth Move Tea. She also takes magnesium. She continues on lansoprazole bid and famotidine qhs. However, with discussion she has not been taking the lansoprazole as her PCP is giving her confusing and different directions taking her off of it and rx'ing famotidine - which is clearly not controlling her GERD. With education, she is agreeable to switching to lansoprazole. ROV 6 weeks. Medications: New lansoprazole 30 mg PO BID 60 caps 6RF K21.9 - Gastro-esophageal reflux disease without esophagitis US OF ABD 10/18/2024 FINDINGS: PANCREAS: Visualized portions are unremarkable. ABDOMINAL AORTA: The proximal, mid, and distal segments are normal in caliber. INFERIOR VENA CAVA: Visualized portions are normal. LIVER: The liver is normal in size. Right hepatic lobe measures 12.8 cm in length. The liver contour is normal. There is diffuse increased liver parenchymal echogenicity, consistent with hepatic steatosis. There is focal sparing abutting the gallbladder fossa. No focal hepatic lesion. There is no intrahepatic biliary duct dilatation seen. GALLBLADDER: The gallbladder is physiologically distended without evidence of stones, sludge, polyps, wall thickening or pericholecystic fluid. There is adenomyomatosis of the gallbladder wall. Negative sonographic Burrows's sign. COMMON BILE DUCT: Normal in caliber measuring 0.5 cm in diameter. RIGHT KIDNEY: No hydronephrosis. No renal calculi or focal parenchymal lesions. The kidney measures 10.0 cm in maximum dimension. LEFT KIDNEY: No hydronephrosis. No renal calculi or focal parenchymal lesions. The kidney measures 10.7 cm in maximum dimension. SPLEEN: The spleen measures 8.5 cm in maximum dimension. FREE FLUID: None. US/US abdomen complete IMPRESSION: 1. Increased hepatic echogenicity, likely on the basis of hepatic steatosis. No focal lesion seen. 2. Gallbladder demonstrating adenomyomatosis of the wall, however otherwise images normally. 3. Remainder of the examination is normal. TODAY'S VISIT Azeri #[id number] I'm unsure what she is using for CIC - ? Linzess or OTC's. I last rx'ed lansoprazole bid. This is helping her better that any other tx has, although she has some breakthrough. She is using benefiber and feels this is controlling her CIC> SHe asks me about fatty liver, as it appears that she had an US with her PCP showing this. She says she also has been told she has high cholesterol and has received nutritional counselling from her PCP. We have no recent chem panel on her, but I note that her TSH was running high in November. She apparently was off of her medications a large portion of last year and just restarted her levothyroxine June of this year at 50mcg. Get labs and ROV 6 weeks. PFSH Medical History ASCUS with positive high risk HPV cervical History of COVID-19 Anemia Gastroesophageal reflux disease Thyroid activity decreased Surgical History H/O colonoscopy History of tubal ligation History of esophagogastroduodenoscopy (EGD) Social History Are you a primary healthcare science specialist to a significant other at home: No Do you presently have visiting nurse or other home services: No Alcohol intake: never Patient Tobacco Use Status: Never used Tobacco Female Reproductive History Menstrual Age of Menarche: 14 Review of Systems Const Denies fatigue, Denies fever(s), Denies night sweats, Denies poor appetite and Denies weight loss ENT Reports Normal hearing present, Denies dental pain, Denies dysphagia, Denies hearing loss, Denies mouth pain, Denies odynophagia, Denies throat swelling, Denies tongue swelling and Reports other (Dentition adequate) Card Reports no additional complaints Resp Reports no additional complaints GI Details: Denies abdominal pain, Denies melena, Denies bloating, Denies hematochezia, Reports constipation, Denies GI cramping, Denies dysphagia, Denies excessive flatus, Denies early satiety, Reports heartburn, Denies diarrhea, Denies nausea, Denies odynophagia, Denies vomiting and Denies hematemesis Skin/Breast Denies pruritus, Denies lesions, Denies rash and Denies jaundice Neuro Reports Normal hearing present and Denies Abnormal speech present Endo Denies fatigue Aller/Immun Denies throat swelling and Denies tongue swelling Physical Exam Const General: cooperative, no acute distress, well developed and well groomed Nutritional Appearance: well nourished and overweight Orientation/consciousness: oriented to person, oriented to place and oriented to time Limitations: language barrier HEENT Head: Yes normocephalic and Yes atraumatic Eyes General: appearance normal, both eyes and all related structures Pupils: Equal, round and reactive pupils present Neck Neck: Yes normal visual inspection and Yes no lymphadenopathy Thyroid: Thyroid normal Resp Effort & Inspection: normal respiratory effort and able to speak in complete sentences Auscultation: clear to auscultation bilaterally Cardio Rate: regular rate Rhythm: regular rhythm Heart sounds: Normal, physiologic split S2 sound present Peripheral pulses: radial pulses present and posterior tibial pulses present GI Inspection: No distended, No Abdominal panniculus present and Yes obesity Palpation (GI): Soft to palpation, nontender, no guarding, not rigid and No hepatosplenomegaly present Percussion: Yes normal to percussion Auscultation: normal bowel sounds Rectal Exam - Female: deferred Skin General skin exam: no rashes or lesions noted, turgor normal, skin not dry, no jaundice, No spider nevi and no striae Rashes: no rashes Nails: normal Neuro General: oriented to person, oriented to place and oriented to time Cranial nerves: Yes Equal, round and reactive pupils present and Yes Normal hearing present Speech: No Abnormal speech present Extrem General: Yes normal to inspection, No clubbing, No cyanosis and No edema Psych Appearance: grossly normal and well kempt Mental Status: mental status grossly normal Speech and movement: Normal speech and movement present Affect: normal affect Attitude: cooperative Thought process: Normal thought process present and not confabulating Thought content: Normal thought content present Insight: Limited insight present (Psych) Judgement: Limited judgement present (Psych) Results Reviewed Results Reviewed: Laboratory Tests 09/20/24 09/27/24 12/06/24 10:10 10:03 09:25 WBC 4.0 L Hgb 13.1 Hct 39.0 Plt Count 220 TSH 4.30 H Free T4 0.85 Hep Bs Antigen Negative Hep Bs Antibody NONREACTIVE Hepatitis C Ab (EIA) Nonreactive US OF [facility] 10/18/2024 FINDINGS: PANCREAS: Visualized portions are unremarkable. ABDOMINAL AORTA: The proximal, mid, and distal segments are normal in caliber. INFERIOR VENA CAVA: Visualized portions are normal. LIVER: The liver is normal in size. Right hepatic lobe measures 12.8 cm in length. The liver contour is normal. There is diffuse increased liver parenchymal echogenicity, consistent with hepatic steatosis. There is focal sparing abutting the gallbladder fossa. No focal hepatic lesion. There is no intrahepatic biliary duct dilatation seen. GALLBLADDER: The gallbladder is physiologically distended without evidence of stones, sludge, polyps, wall thickening or pericholecystic fluid. There is adenomyomatosis of the gallbladder wall. Negative sonographic Burrows's sign. COMMON BILE DUCT: Normal in caliber measuring 0.5 cm in diameter. RIGHT KIDNEY: No hydronephrosis. No renal calculi or focal parenchymal lesions. The kidney measures 10.0 cm in maximum dimension. LEFT KIDNEY: No hydronephrosis. No renal calculi or focal parenchymal lesions. The kidney measures 10.7 cm in maximum dimension. SPLEEN: The spleen measures 8.5 cm in maximum dimension. FREE FLUID: None. US/US abdomen complete IMPRESSION: 1. Increased hepatic echogenicity, likely on the basis of hepatic steatosis. No focal lesion seen. 2. Gallbladder demonstrating adenomyomatosis of the wall, however otherwise images normally. 3. Remainder of the examination is normal. Assessment & Plan Assessment & Plan (1) Hepatic steatosis: Comment: Baseline labs Hep Bs Antigen Negative Hep Bs Antibody NONREACTIVE Hepatitis C Ab (EIA) Nonreactive CURRENT LABS US OF ABD 10/18/2024 FINDINGS: PANCREAS: Visualized portions are unremarkable. ABDOMINAL AORTA: The proximal, mid, and distal segments are normal in caliber. INFERIOR VENA CAVA: Visualized portions are normal. LIVER: The liver is normal in size. Right hepatic lobe measures 12.8 cm in length. The liver contour is normal. There is diffuse increased liver parenchymal echogenicity, consistent with hepatic steatosis. There is focal sparing abutting the gallbladder fossa. No focal hepatic lesion. There is no intrahepatic biliary duct dilatation seen. GALLBLADDER: The gallbladder is physiologically distended without evidence of stones, sludge, polyps, wall thickening or pericholecystic fluid. There is adenomyomatosis of the gallbladder wall. Negative sonographic Burrows's sign. COMMON BILE DUCT: Normal in caliber measuring 0.5 cm in diameter. RIGHT KIDNEY: No hydronephrosis. No renal calculi or focal parenchymal lesions. The kidney measures 10.0 cm in maximum dimension. LEFT KIDNEY: No hydronephrosis. No renal calculi or focal parenchymal lesions. The kidney measures 10.7 cm in maximum dimension. SPLEEN: The spleen measures 8.5 cm in maximum dimension. FREE FLUID: None. US/US abdomen complete IMPRESSION: 1. Increased hepatic echogenicity, likely on the basis of hepatic steatosis. No focal lesion seen. 2. Gallbladder demonstrating adenomyomatosis of the wall, however otherwise images normally. 3. Remainder of the examination is normal. Code(s): K76.0 - Fatty (change of) liver, not elsewhere classified Category: Medical (2) Chronic idiopathic constipation: Code(s): K59.04 - Chronic idiopathic constipation Category: Medical (3) GERD (gastroesophageal reflux disease): Code(s): K21.9 - Gastro-esophageal reflux disease without esophagitis Category: Medical Plan merary #[id number] I'm unsure what she is using for CIC - ? Linzess or OTC's. I last rx'ed lansoprazole bid. This is helping her better that any other tx has, although she has some breakthrough. She is using benefiber and feels this is controlling her CIC> SHe asks me about fatty liver, as it appears that she had an US with her PCP showing this. She says she also has been told she has high cholesterol and has received nutritional counselling from her PCP. We have no recent chem panel on her, but I note that her TSH was running high in November. She apparently was off of her medications a large portion of last year and just restarted her levothyroxine June of this year at 50mc. Get labs and ROV 6 weeks. Orders: Orders Liver Fibrosis Pnl Today K76.0 - Fatty (change of) liver, not elsewhere classified Lipid Panel Today K76.0 - Fatty (change of) liver, not elsewhere classified Alpha Fetoprotein Today K76.0 - Fatty (change of) liver, not elsewhere classified CULLEN Reflex Titer and Pattern Today K76.0 - Fatty (change of) liver, not elsewhere classified Comprehensive Met. Panel Today K76.0 - Fatty (change of) liver, not elsewhere classified Ferritin Today K76.0 - Fatty (change of) liver, not elsewhere classified TSH reflex Free T4 Today K76.0 - Fatty (change of) liver, not elsewhere classified Mitochondrial Antibody Today K76.0 - Fatty (change of) liver, not elsewhere classified Smooth Muscle Antibody Today K76.0 - Fatty (change of) liver, not elsewhere classified Coding Level of Care Code Est Pt Level 4 (82412) Diagnoses Hepatic steatosis K76.0 Chronic idiopathic constipation K59.04 GERD (gastroesophageal reflux disease) K21.9 Time Spent (min) 34
--- OUTSIDE RECORDS SUMMARY | 2025-01-10 12:37 | XMS_ITS | Encounter Summary ---
Author Organization [employer] Address [address] [facility] [address] [place] [address] Care Team Providers Care Senior Solutions Consultant Name Role Phone Hallie Rosario MD Primary Care Provider [phone] Encounter Details Date Type Department Care Team ([facility] st Contact Info) Description 05/20/2022 Orders Only [facility] MEDICINE [address] [place], [place] [phone] Hallie Rosario MD [address] [place], [place] [phone] Social History Tobacco Use Types Packs/Day Years Used Date Smoking Tobacco: Never Assessed Comments Unknown Sex and Gender Information Value Date Recorded Sex Assigned at Female 03/31/2022 10:18 AM EDT Legal Sex Female 10:18 AM EDT Gender Identity Female 03/31/2022 10:18 AM EDT Sexual Orientation Straight 03/31/2022 10 :18 AM EDT documented as of this encounter Plan of Treatment Not on file documented as of this encounter Visit Diagnoses Not on filedocumented in this encounter Care Teams Senior Solutions Consultant Relationship Specialty Start Date End Date Hallie Rosario MD [address] [place] [address] PCP - General Family Medicine 10/18/15 documented as of this encounter
== END 2025-01-10 12:00 | disposition home or self-care (01) ==
LOC: HO.HGI 11:33
PROVIDERS: PCP Pediatrics; Visit Provider Nurse Practitioner
DX: K76.0 Fatty (change of) liver, not elsewhere classified (principal); K59.04 Chronic idiopathic constipation; K21.9 Gastro-esophageal reflux disease without esophagitis
CPT/HCPCS: 99214

== ENCOUNTER → 2025-01-10 11:32 | Outpatient (BNVA) | payer OTHER, SELFPAY | PROVIDERS: PCP Pediatrics; Visit Provider Nurse Practitioner | DX: K76.0 Fatty (change of) liver, not elsewhere classified (principal); K59.04 Chronic idiopathic constipation; K21.9 Gastro-esophageal reflux disease without esophagitis | CPT/HCPCS: 99212 ==

== ENCOUNTER 2025-02-01 10:40 | Outpatient (REF) | payer OTHER, SELFPAY ==
--- OUTSIDE RECORDS SUMMARY | 2025-02-01 09:45 | XMS_ITS | Encounter Summary ---
Author Organization [employer] Address [address] [facility] [address] [place] [address] Care Team Providers Care Wing Mailer Machine Operator Name Role Phone Hallie Rosario MD Primary Care Provider [phone] Encounter Details Date Type Department Care Team ([facility] Contact Info) Description 02/01/2025 9:45 AM EDT Office Visit [facility] CHC MED & PEDS [address] [place] [address] Hallie Rosario MD [address] [place] [address] Hepatic steatosis (Primary Dx); Pre-diabetes; Encounter for immunization; Preop examination Social History Tobacco Use Types Packs/Day Years [...] Sign Reading Time Taken Comments Blood Pressure 124/82 02/01/2025 9:57 AM EDT Pulse 72 02/01/2025 9:57 AM EDT Temperature 36.5 C (97.7 F) 02/01/2025 9:57 AM EDT Respiratory Rate 20 02/01/2025 9:57 AM EDT Oxygen Saturation - - Inhaled Oxygen Concentration - - Weight 73.3 kg (161 lb 9.6 oz) 02/01/2025 9:57 A M EDT Height 160 cm (5' 3 ) 02/01/2025 9:57 AM EDT Body Mass Index 28.63 02/01/2025 9:57 AM EDT documented in this encounter Progress Notes * Hallie Rosario MD - 02/01/2025 9:45 AM EDT Subjective Patient ID: Yoana Martinez is a 54 y.o. female who presents for preop exam for cataract sx. Yoana is a 54-year-old female patient of mine here for preop examination. She feels rather well today. She is scheduled on February 06 for cataract surgery in [place]. Her manager renewable energy is . She has past medical history of hypothyroidism on levothyroxine, anxiety, steatosis of the liver and GERD. Review of Systems Constitutional: Negative for activity change, chills, fever and unexpected weight change. Eyes: Positive for visual disturbance. Respiratory: Negative for cough, shortness of breath and wheezing. Cardiovascular: Negative for chest pain, palpitations and leg swelling. Gastrointestinal: Negative for abdominal pain and blood in stool. Endocrine: Negative for polydipsia and polyuria. Genitourinary: Negative for decreased urine volume, difficulty urinating, dysuria and hematuria. Musculoskeletal: Negative for arthralgias and gait problem. Skin: Negative for color change and rash. Neurological: Negative for dizziness and headaches. Hematological: Negative for adenopathy. Psychiatric/Behavioral: Negative for dysphoric mood, hallucinations, sleep disturbance and suicidalideas. The patient is not nervous/anxious. Objective BP 124/82 (BP Location: Left arm, Patient Position: Sitting, BP Cuff Size: Adult) Pulse72 Temp 97.7 ??F (36.5 ??C) (Oral) Resp 20 Ht 5' 3 (1.6 m) Wt 161 lb 9.6 oz (73.3 kg) BMI 28.63 kg/m?? Physical Exam Constitutional: General: She is not in acute distress. Appearance: Normal appearance. She is not ill-appearing. HENT: Head: Normocephalic. Right Ear: Tympanic membrane and ear canal normal. Left Ear: Tympanic membrane and ear canal normal. Nose: Nose normal. Mouth/Throat: Mouth: Mucous membranes are moist. Pharynx: Oropharynx is clear. No oropharyngeal exudate or posterior oropharyngeal erythema. [...] mass. Tenderness: There is no abdominal tenderness. There is no guarding. Musculoskeletal: General: Normal range of motion. Cervical [...] Diagnoses and all orders for this visit: Hepatic steatosis Comments: Has elastography scheduled soon. Recheck LFTs today. Avoid ethanol and hepatotoxic agents. Do not miss imaging study. Hep B vaccination today given. Orders: - Hemoglobin A1c; Future - Hepatic Function Panel; Future Pre-diabetes Comments: Last A1c was 6.4. Has lost 4 more pounds since last visit. Decrease sugar in diet. Patient congratulated. Recheck A1c and treat if needed. Follow-up given. Orders: - Hemoglobin A1c; Future - Hepatic Function Panel; Future Encounter for immunization Comments: Hep B series started after hepatitis profile reviewed. Follow-up with nurse for second vaccine. Orders: - HEPATITIS B VACCINE ADULT 20 yrs + Preop examination Comments: Patient is cleared for this low risk surgery under local anesthesia scheduled for February 06. Recent labs reviewed. No EKG needed. Note faxed to ophthalm. documented in this encounter Plan of Treatment Upcoming Encounters Date Type Department Care Team (Late st Contact Info) Description 03/06/2025 10:00 AM EDT Clinical Support [facility] MED & PEDS [address] [place] [address] Scheduled Orders Name Type Priority Associated Diagnoses Orde r Schedule Hemoglobin A1c Lab Routine Hepatic steatosis Pre-diabetes Expected: 02/01/2025 (Approximate), Expires: 02/01/2026 Hepatic Function Panel Lab Routine Hepatic steatosis Pre-diabetes Expected: 02/01/2025 (Approximate), Expires: 02/01/2026 documented as of this encounter Visit Diagnoses Diagnosis Hepatic steatosis- Primary Other chronic nonalcoholic liver disease Pre-diabetes Other abnormal glucose Encounter for immunization Preop examination Unspecified pre-operative examination documented in this encounter Additional Health Concerns Assessment Noted Time PHQ-9 Depression Total Score: 4 09/21/19 25 9:43 AM EDT documented as of this encounter Care Teams Wing Mailer Machine Operator Relationship Specialty Start Date End Date Hallie Rosario MD [address] [place] [address] PCP - General Family Medicine 10/18/15 documented as of this encounter
--- OUTSIDE RECORDS SUMMARY | 2025-02-01 12:25 | XMS_ITS | Encounter Summary ---
Author Organization [employer] Address [address] [facility] [address] [place] [address] Care Team Providers Care Certified Flex Endoscope Reprocessor Name Role Phone Hallie Rosario MD Primary Care Provider [phone] Reason for Visit * Reason Comments Med Refill Encounter Details Date Type Department Care Team ([facility] st Contact Info) Description 06/22/2023 Refill [facility] CHC MED & PEDS [address] [place] [address] Hallie Rsoario MD [address] [place] [address] Vitamin D deficiency Social History Tobacco Use [...] Upcoming Encounters Date Type Department Care Team ([facility] st Contact Info) Description 03/06/2025 10:00 AM EDT Clinical Support [facility] MED & PEDS [address] [place] [address] documented as of this encounter Visit Diagnoses Diagnosis Vitamin D deficiency documented in this encounter Additional Health Concerns Assessment Noted Time PHQ-9 Depression Total Score: 23 023 9:33 AM EST documented as of this encounter Care Teams Certified Flex Endoscope Reprocessor Relationship Specialty Start Date End Date Hallie Rosario MD [address] [place] [address] PCP - General Family Medicine 10/18/15 documented as of this encounter
--- OUTSIDE RECORDS SUMMARY | 2025-02-01 12:25 | XMS_ITS | Encounter Summary ---
Author Organization [employer] Address [address] [facility] [address] [place] [address] Care Team Providers Care Alteration Inspector Name Role Phone Hallie Rosario MD Primary Care Provider [phone] Encounter Details Date Type Department Care Team ([facility] st Contact Info) Description 07/07/2023 Orders Only [facility] MEDICINE [address] [place], [place] [phone] Isha Santos NP [address] [place], [place] [phone] Back pain, unspecified back location, unspecified back [...] the past 12 months, has t he [employer], [employer], oil or water company threatened to shut [...] Description 03/06/2025 10:00 AM EDT Clinical Support [facility] MED & PEDS [address] [place] [address] documented as of this encounter Visit Diagnoses Diagnosis Back pain, unspecified back location, unspecified back pain laterality, unspecified chronicity- Primary documented in this encounter Additional Health Concerns Assessment Noted Time PHQ-9 Depression Total Score: 23 023 9:33 AM EST documented as of this encounter Care Teams Alteration Inspector Relationship Specialty Start Date End Date Hallie Rosario MD [address] [place] [address] PCP - General Family Medicine 10/18/15 documented as of this encounter
--- OUTSIDE RECORDS SUMMARY | 2025-02-01 12:25 | XMS_ITS | Encounter Summary ---
Author Organization [employer] Address [address] [facility] 7t [place] [address] Care Team Providers Care Civilian Technician Name Role Phone Hallie Rosario MD Primary Care Provider [phone] Encounter Details Date Type Department Care Team ([facility] st Contact Info) Description 05/28/2024 Orders Only [facility] MEDICINE [address] [place] [address] ProviderIsaiah MD Social History Tobacco Use Types [...] Description 03/06/2025 10:00 AM EDT Clinical Support [facility] MED & PEDS [address] [place] [address] documented as of this encounter Procedures Procedure [...] AM EST Narrative 06/13/2024 4:10 PM EST [facility] [address] [place] [address] Mammography Report Signed Patient: Yoana Powell MR# : [id number] : 1970 Acct:[id number] Age/Sex: 54 / F ADM Date: 06/07/24 Loc: HO.MAMMO Attending Dr: Josef Kimble MD Ordering Physician: Josef Kimble MD Results: 1Negativ e Date of Service: 06/07/24 Follow Up: 1 Year From Orig inal Mammogram Procedure(s): MM tomosynthesis screening BI Accession Number(s): [id number] cc: Hallie Rosario MD; Josef Kimble MD [...] 06/13/24 1607 DD/ 1150 TD/TT: 06/07/24 1202 Laundry Clerk: Procedure Note Donotuseinterpreter, Image - 06/13/2024 [facility] [address] [place] [address] Mammography Report Signed Patient: Yoana Powell AMR# : [id number] : 1970Acct:[id number] Age/Sex: 54 / FADM Date: 06/07/24 Loc: HO.MAMMO Attending Dr: Josef Kimble MD Ordering Physician: Josef Kimble MDResults: 1Negativ e Date of Service: 06/07/24Follow Up: 1 Year From Orig inal Mammogram Procedure(s): MM tomosynthesis screening BI Accession Number(s): [id number] cc: Hallie Rosario MD; Josef Kimble MD [...] 06/13/24 1607 DD/ 1150 TD/TT: 06/07/24 1202 Laundry Clerk: [facility] External Provider IMG BI PROCEDURES Final [...] documented as of this encounter Care Teams Civilian Technician Relationship Specialty Start Date End Date Hallie Rosario MD [address] [place] [id number] PCP - General Family Medicine 10/18/15 documented as of this encounter
--- OUTSIDE RECORDS SUMMARY | 2025-02-01 12:25 | XMS_ITS | Encounter Summary ---
Author Organization [employer] Address [address] [place] [address] 7 [place] [address] Care Team Providers Care Lip Cutter And Scorer Name Role Phone Hallie Rosario MD Primary Care Provider [phone] Reason for Visit * Reason Comments Med Refill Encounter Details Date Type Department Care Team ([facility] Contact Info) Description 07/26/2022 Refill [facility] MED & PEDS [address] [place] [address] Hallie Rosario MD [address] [place] [address] Acquired hypothyroidism Social History Tobacco Use Types [...] Upcoming Encounters Date Type Department Care Team ([facility] Contact Info) Description 03/06/2025 10:00 AM EDT Clinical Support [facility] [address] [place] [address] documented as of this encounter Visit Diagnoses Diagnosis Acquired hypothyroidism Unspecified hypothyroidism documented in this encounter Additional Health Concerns Assessment Noted Time PHQ-9 Depression Total Score: 23 023 9:33 AM EST documented as of this encounter Care Teams Lip Cutter And Scorer Relationship Specialty Start Date End Date Hallie Rosario MD [address] [place] [address] PCP - General Family Medicine 10/18/15 documented as of this encounter
--- OUTSIDE RECORDS SUMMARY | 2025-02-01 12:25 | XMS_ITS | Encounter Summary ---
Author Organization [employer] Address [address] [facility] 7[address] [place] [address] Care Team Providers Care Work Over Rig Operator Name Role Phone Hallie Rosario MD Primary Care Provider [phone] Encounter Details Date Type Department Care Team (Latest Contact Info) Description 02/01/2025 Travel Social History Tobacco Use Types Packs/Day Years Used Date Smoking Tobacco: Never Passive Smoke Exposure: Never Smokeless Tobacco: Never Depression Answer Date Recorded Patient Health Questionnaire-9 Score 4 09/20/2024 Patient Health Questionnaire-9 Score 4 09/20/2024 Last PHQ-9: Questionnaire Data Not on file 0 09/20/2024 Housing Stability Answer Date Recorded What is your housing situation today? I have saira esperanza 09/09/[address] you li [...] Upcoming Encounters Date Type Department Care Team ([facility] st Contact Info) Description 03/06/2025 10:00 AM EDT Clinical Support [facility] MED & PEDS [address] [place] [address] documented as of this encounter Visit Diagnoses Not on filedocumented in this encounter Additional Health Concerns Assessment Noted Time PHQ-9 Depression Total Score: 4 09/21/19 25 9:43 AM EDT documented as of this encounter Care Teams Work Over Rig Operator Relationship Specialty Start Date End Date Hallie Rosario MD [address] [place] [address] PCP - General Family Medicine 10/18/15 documented as of this encounter
--- OUTSIDE RECORDS SUMMARY | 2025-02-01 12:25 | XMS_ITS | Encounter Summary ---
Author Organization [employer] Address [address] [facility] 7 [place] [address] Care Team Providers Care Substation Engineer Name Role Phone Hallie Rosario MD Primary Care Provider [phone] Reason for Visit * Reason Onset Date Comments Chart Prep 01/31/2025 Encounter Details Date Type Department Care Team ([facility] Contact Info) Description 01/31/2025 Telephone [facility] PEDS [address] [place] [address] Hallie Rosario MD [address] [place] [address] Chart Prep Social History Tobacco Use Types Packs/Day Years [...] encounter Miscellaneous Notes * Telephone Encounter - Karla Zamora [place] - 01/31/2025 9:41 AM EDT Chart Prep Labs: done Images: done Referrals: appointment pending Vaccines due: Tdap, Hep B, Hep A, and Zoster Screenings: STI screening and LMP Overdue care gaps: Tobacco documented in this encounter Plan of Treatment Upcoming Encounters Date Type Department Care Team ([facility] st Contact Info) Description 03/06/2025 10:00 AM EDT Clinical Support [facility] [address] [place] [address] documented as of this encounter Visit Diagnoses Not on filedocumented in this encounter Additional Health Concerns Assessment Noted Time PHQ-9 Depression Total Score: 4 09/21/19 25 9:43 AM EDT documented as of this encounter Care Teams Substation Engineer Relationship Specialty Start Date End Date Hallie Rosario MD [address] [place] [address] PCP - General Family Medicine 10/18/15 documented as of this encounter
--- OUTSIDE RECORDS SUMMARY | 2025-02-01 12:25 | XMS_ITS | Encounter Summary ---
Author Organization [employer] Address [address] [place] [address] [address], [place] [address] Care Team Providers Care Desk Representative Name Role Phone Hallie Rosario MD Primary Care Provider [phone] Encounter Details Date Type Department Care Team (Late Contact Info) Description 05/09/2022 Telephone [facility] MED & PEDS [address] [place] [address] Hallie Rosario MD [address] [place] [address] Social History Tobacco Use Types Packs/Day Years [...] Description 03/06/2025 10:00 AM EDT Clinical Support [facility]EDS [address] [place] [address] documented as of this encounter Visit Diagnoses Not on filedocumented in this encounter Care Teams Desk Representative Relationship Specialty Start Date End Date Hallie Rosario MD [address] [place] [address] PCP - General Family Medicine 10/18/15 documented as of this encounter
--- OUTSIDE RECORDS SUMMARY | 2025-02-01 12:25 | XMS_ITS | Encounter Summary ---
Author Organization [employer] Address [address] [facility] [address] [place] [address] Care Team Providers Care Documentation Liaison Name Role Phone Hallie Rosario MD Primary Care Provider [phone] Encounter Details Date Type Department Care Team (Late st Contact Info) Description 05/20/2022 Orders Only [facility] MEDICINE [address] [place], [place] [phone] Hallie Rosario MD [address] [place], [place] [phone] Social History Tobacco Use Types Packs/Day Years [...] Description 03/06/2025 10:00 AM EDT Clinical Support [facility] MED & PEDS [address] [place] [address] documented as of this encounter Visit Diagnoses Not on filedocumented in this encounter Care Teams Documentation Liaison Relationship Specialty Start Date End Date Hallie Rosario MD [address] [place] [address] PCP - General Family Medicine 10/18/15 documented as of this encounter
--- OUTSIDE RECORDS SUMMARY | 2025-02-01 12:25 | XMS_ITS | Encounter Summary ---
Author Organization [employer] Address [address] [place] [address] 7 [place] [address] Care Team Providers Care Tailing Machine Operator Name Role Phone Hallie Rosario MD Primary Care Provider [phone] Encounter Details Date Type Department Care Team (Latest Contact Info) Description 05/04/2019 Abstract [facility] CONVERSIONS Dental, Provider, DDS Social History [...] Description 03/06/2025 10:00 AM EDT Clinical Support [facility]EDS [address] [place] [address] documented as of this encounter Visit Diagnoses Not on filedocumented in this encounter Care Teams Tailing Machine Operator Relationship Specialty Start Date End Date Hallie Rosario MD [address] [place] [address] PCP - General Family Medicine 10/18/15 documented as of this encounter
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
[2025-02-01 14:18] LABS: Hemoglobin A1C 157.6796 umol/L; Total Hemoglobin (HGBA1C) 3520.4589 umol/L
[2025-02-01 14:19] LABS: Alanine Aminotransferase 49 U/L (0-31); Albumin Level 4.4 g/dL (3.5-5.0); Alkaline Phosphatase 99 U/L (39-117); Aspartate Amino Transferase 34 U/L (5-31); Total Protein 8.1 g/dL (6.5-8.0)
== END 2025-02-01 10:41 | disposition home or self-care (01) ==
LOC: HO.CHCLDS 10:40
PROVIDERS: Visit Provider Pediatrics
DX: K76.0 Fatty (change of) liver, not elsewhere classified (principal); R73.03 Prediabetes
CPT/HCPCS: 36415; 80076; 83036

== ENCOUNTER 2025-02-14 07:48 | Outpatient (REF) | payer OTHER, SELFPAY ==
--- NOTE | ~2025-02-14 | US_ITS ---
EXAMINATION: US ABDOMEN COMPLETE WITH LIVER ELASTOGRAPHY HISTORY: HEPATIC STEATOSIS TECHNIQUE: Real-time grayscale ultrasound imaging of the abdomen was performed and images were reviewed. COMPARISON: Comparison is made with the prior examination dated 10/18/2024. FINDINGS: Liver: The right lobe of the liver measures 15.1 cm in size. The left lobe of the liver measures 8.2 cm in size. The liver demonstrates increased echotexture, consistent with steatosis. No focal mass or intrahepatic biliary ductal dilatation is identified. There is normal hepatopedal flow in the portal vein. Ultrasound elastography of the liver was performed with 10 separate measurements of the liver parenchyma with the patient in the supine position. Measurements were obtained approximately 2 cm below Cedric's capsule and perpendicular to the capsule. The median shear wave velocity is 1.50 m/s. The interquartile range/median (IQR/median) is 0.07. Gallbladder and biliary tree: Again seen is ring down artifact from the gallbladder wall, consistent with adenomyomatosis. The gallbladder is otherwise unremarkable, without evidence of calculi, wall thickening, or pericholecystic fluid. There is no sonographic Burrows sign. The common bile duct is normal in caliber measuring 4 mm. Kidneys: The right kidney measures 10.2 cm in length. The left kidney measures 10.0 cm in length. The kidneys are unremarkable, without evidence of masses, hydronephrosis, or calculi. Pancreas: The pancreatic head, neck, and body are unremarkable. The pancreatic tail is obscured by bowel gas. Spleen: The spleen is normal in size and contour, measuring 8.8 cm in length. Abdominal aorta and inferior vena cava: The visualized portions of the abdominal aorta and inferior vena cava are normal in caliber. There is no free fluid in the abdomen. US/US abdomen comp w elastography IMPRESSION: 1. Hepatic steatosis. 2. Adenomyomatosis of the gallbladder. The median shear wave velocity in the liver is 1.50 m/s, corresponding to a median liver stiffness of 6.75 kPa. The IQR/median value is 0.07. This is indicative of a quality data set. Findings are indicative of a low elastography value which rules out advanced chronic liver disease in asymptomatic patients. REFERENCE: Society of Radiologists in Ultrasound Liver Stiffness Thresholds (2020): LIVER STIFFNESS THRESHOLDS: *Shear wave velocity less than 1.3 m/s (Liver Stiffness equal or less than 5 kPa): High probability of being normal. *Shear wave velocity less than 1.7 m/s (Liver Stiffness less than 9 kPa): In the absence of other known clinical signs, rules out compensated advanced chronic liver disease. *Shear wave velocity between 1.7-2.1 m/s (Liver Stiffness 9-13 kPa): Suggestive of compensated advanced chronic liver disease but need further test for confirmation. *Shear wave velocity between 2.1-2.4 m/s (Liver Stiffness 13-17 kPa): Rules in compensated advanced chronic liver disease. *Shear wave velocity greater than 2.4 m/s (Liver Stiffness over 17 kPa): Suggestive of clinically significant portal hypertension. QUALITY OF DATA SET: *IQR/Median value equal or less than 0.15 implies a quality data set. *IQR/Median value over 0.15 implies a poor quality data set. SIGNIFICANT CHANGE FROM PRIOR EXAM: Significant change if liver stiffness measurement is 10% or greater from prior exam. OTHER CONSIDERATIONS: The stage of liver fibrosis may be overestimated in the setting of acute hepatitis, liver inflammation, elevated liver function tests, hepatic vascular congestion, obstructive cholestasis, non-fasting state, and infiltrative diseases such as amyloidosis and lymphoma. In some patients with NAFLD, the liver stiffness thresholds for compensated advanced chronic liver disease may be lower. In causes other than viral hepatitis and NAFLD, liver stiffness thresholds are not well established. Electronically signed by: Harry Vilchis MD 02/14/2025 09:23 AM EDT
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
--- OUTSIDE RECORDS SUMMARY | 2025-02-14 07:50 | XMS_ITS | Encounter Summary ---
Author Organization [employer] Address [address] [place] [address] [address] [place] [address] Care Team Providers Care Answerer Name Role Phone Hallie Rosario MD Primary Care Provider [phone] Encounter Details Date Type Department Care Team (Latest Contact Info) Description 05/04/2019 Abstract [facility] CONVERSIONS Dental, Provider, DDS Social [...] Description 03/06/2025 10:00 AM EDT Clinical Support [facility] [address] [place] [address] documented as of this encounter Visit Diagnoses Not on filedocumented in this encounter Care Teams Answerer Relationship Specialty Start Date End Date Hallie Rosario MD [address] [place] [address] PCP - General Family Medicine 10/18/15 documented as of this encounter
--- OUTSIDE RECORDS SUMMARY | 2025-02-14 07:50 | XMS_ITS | Encounter Summary ---
Author Organization [employer] Address [address] [facility] [address] [place] [address] Care Team Providers Care Concrete Batcher Name Role Phone Hallie Rosario MD Primary Care Provider [phone] Encounter Details Date Type Department Care Team (Late st Contact Info) Description 05/20/2022 Orders Only [facility] [address] [place], [place] [phone] Hallie Rosario MD [address] [place], [place] [phone] Social History Tobacco Use Types Packs/Day Years [...] Description 03/06/2025 10:00 AM EDT Clinical Support [facility] [address] [place] [address] documented as of this encounter Visit Diagnoses Not on filedocumented in this encounter Care Teams Concrete Batcher Relationship Specialty Start Date End Date Hallie Rosario MD [address] [place] [address] PCP - General Family Medicine 10/18/15 documented as of this encounter
--- OUTSIDE RECORDS SUMMARY | 2025-02-14 07:50 | XMS_ITS | Clinical Summary ---
Author Organization [employer] Address [address] [facility] 7t [place] [address] Care Team Providers Care Form Block Maker Name Role Phone Hallie Rosario MD Primary Care Provider [phone] Allergies Active Allergy Reactions Criticality Noted Date Comments Penicillins 02/17/2013 Medications Diclofenac Sodium (Voltaren) 1 % gel apply (2G) by topical route 4 times every day to the affected area(s) 9 Active ergocalciferol (Vitamin D2) 1.25 MG (06609 UT) capsuleIndications :Vitamin D deficiency Take 1 [...] 5 Active Blood Glucose Monitoring Suppl (FreeStyle [place] Lite) w/Device kitIndications:Pre -diabetes Use to test [...] Description 02/01/2025 9:45 AM EDT Office Visit [facility] [address] [place] [address] Hallie Rosario MD Hepatic steatosis (Primary Dx); Pre-diabetes; Encounter for immunization; Preop examination 02/01/2025 Telephone [facility] [address] [place] [address] Hallie Rosario MD Outgoing Fax: Pre-op 02/01/2025 Travel 01/31/2025 Telephone [facility] [address] [place] [address] Hallie Rosario MD Chart Prep 01/10/2025 Telephone [facility] [address] [place] [address] Hallie Rosario MD Pre-op Exam 12/27/2024 9:45 AM EDT Office Visit [facility] [address] [facility], [place] [phone] Elvia Barrera, OD 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); Posterior subcapsular polar senile cataract, left 12/27/2024 Travel 12/07/2024 Results Follow-Up [facility] [address] [place], [place] [phone] Cherie Mendieta RN T4, Free 12/06/2024 Orders Only [facility] [address] [place] [address] Hallie Rosario MD 11/29/2024 9:45 AM EDT Office Visit [facility] [address] [place], [place] [phone] Hallie Rosario MD Pre-diabetes (Primary Dx); Acquired hypothyroidism; Hepatic steatosis 11/29/2024 Travel from Last 3 Months Immunizations Immunization Administration [...] the past 12 months, has t he [employer], gas, oil or water company threatened to [...] Description 03/06/2025 10:00 AM EDT Clinical Support [facility] [address] [place] [address] Health Maintenance Due Date Last Done Comments [...] 25 Disability Screening 09/20/2025 09/20/2024 Tobacco Screening 12/30/2025 12/30/2024 Diabetes: Hemoglobin A1C 02/01/2026 02/01/2025, 0401/2025 Mammogram 06/07/2026 06/07/2024, 0706/2022, 11/13/2021, Additional history [...] Procedure Name Priority Date/Time Associated Diagnosis Comments HEPATIC FUNCTION PANEL Routine 02/01/2025 10:43 AM EDT Hepatic steatosis Pre-diabetes HEMOGLOBIN A1C Routine 02/01/2025 10:43 AM EDT Hepatic steatosis Pre-diabetes OCT, RETINA - OU - BOTH EYES Routine 12/27/2024 9:45 AM EDT 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 XR SHOULDER 2+ VIEWS RIGHT Routine 12/10/2024 5:11 PM EDT XR CHEST 2 VIEWS Routine 12/10/2024 5:11 PM EDT T4, FREE Routine 12/06/2024 9:25 AM EDT TSH W/REFLEX TO FT4 Routine 12/06/2024 9 :25 AM EDT Acquired hypothyroidism HEPATITIS C AB W/REFL TO HCV RNA, [...] Relevant to Health Maintenance Results * (ABNORMAL) Hemoglobin A1c (02/01/2025 10:43 AM EDT) Hemoglobin A1c 6.2(H) <6.0 % [facility] Comment:Hemoglobin A1C Refer ence Range Adults: 4.8 - 6.0 % Non diabetic: < 6.0 % Goal: < 7.0 %Additional Action Suggested: > 8.0 %Note: Hemoglobin A1c results are invalid for patients with abnormal amounts of HbF. Blood transfusions may impact the HbA1c concentration in the patient sample. Estimated Average Glucose 131 mg/dL [facility] Comment:eAG = Estimated ave rage glucose which is %A1C expressed asaverage glucose, using the formula of the N3G-SabkhhgXllrmrp Glucose study (ADAG), Diabetes Care, Vol.31,#8,2007 Blood Venous blood specimen / Unknown 02/01/2025 10:43 AM EDT 02/01/2025 1:54 PM EDT us Hallie Rosario MD LAB BLOOD ORDERABLES Final Re sult [facility] [address] [place] [phone] * (ABNORMAL) Hepatic Function Panel (02/01/2025 10:43 AM EDT) Bilirubin, Total 0.8 0.0 - 1.0 mg/dL [facility] Bilirubin, Direct 0.3 0.0 - 0.5 mg/dL [facility] Aspartate Amino Transferase 34(H) 5 - 31 U/L [facility] Alanine Aminotransferase 49(H) 0 - 31 U/L [facility] Total Protein 8.1(H) 6.5 - 8.0 g/dL [facility] Albumin Level 4.4 3.5 - 5.0 g/dL [facility] Alkaline Phosphatase 99 39 - 117 U/L [facility] Blood Venous blood specimen / Unknown 02/01/2025 10:43 AM EDT 02/01/2025 1:54 PM EDT us Hallie Rosario MD LAB BLOOD ORDERABLES Final Re sult [facility] [address] [place] [phone] * OCT, Retina - OU - Both Eyes (12/27/2024 9:45 AM EDT) Narrative Holly Elvia, OD - 12/30/2024 3:33 PM EDT Images [...] left eye (OS). Referral placed for evaluation. Elvia Santossapna OD OPHTH TOMOGRAPHY Final Result * XR Shoulder 2+ Views Right (12/10/2024 5:11 PM EDT) Anatomical Region Laterality Modality Upper Extremities, Shoulder Right Radi ographic Imaging 12/10/2024 5:11 PM EDT Narrative 12/10/2024 5:12 PM EDT [address] [address] XRay Report Signed Patient: Yoana Powell MR# : [id number] : 1970 Acct:[id number] Age/Sex: 54 / F ADM Date: 12/10/24 Loc: HO.ED Attending Dr: Ordering Physician: Amber Ng PA-C Date of Service: 12/10/24 Procedure(s): XR shoulder RT min 2V Accession Number(s): [id number] cc: Hallie Rosario MD; Amber Ng PA-C [...] in OV> 12/10/241710 DD/ 10 TD/TT: 12/10/241710 Nip Wrapper: Procedure Note Christal, Colin - 12/10/2024 [place] [address] XRay Report Signed Patient: Yoana Powell AMR# : [id number] : 1970Acct:[id number] Age/Sex: 54 / FADM Date: 12/10/24 Loc: HO.ED Attending Dr: Ordering Physician: Amber Ng PA-C Date of Service: 12/10/24 Procedure(s): XR shoulder RT min 2V Accession Number(s): [id number] cc: Hallie Rosario MD; Amber Ng PA-C [...] in OV> 12/10/241710 DD/ 10 TD/TT: 12/10/241710 Nip Wrapper: [facility] External Provider IMG XR PROCEDURES Edited Result - Final * XR Chest 2 Views (12/10/2024 5:11 PM EDT) Anatomical Region Laterality Modality Chest Radiographic Uzleyma ging 12/10/2024 5:11 PM EDT Narrative 12/10/2024 5:12 PM EDT [address] [address] XRay Report Signed Patient: Yoana Powell MR# : [id number] : 1970 Acct:[id number] Age/Sex: 54 / F ADM Date: 12/10/24 Loc: HO.ED Attending Dr: Ordering Physician: Amber Ng PA-C Date of Service: 12/10/24 Procedure(s): XR chest 2V Accession Number(s): [id number] cc: Hallie Rosario MD; Amber Ng PA-C [...] in OV> 12/10/241710 DD/ 10 TD/TT: 12/10/241710 Nip Wrapper: Procedure Note Donotuseinterpreter, Image - 12/10/[address] [address] XRay Report Signed Patient: Yoana Powell AMR# : [id number] : 1970Acct:[id number] Age/Sex: 54 / FADM Date: 12/10/24 Loc: .ED Attending Dr: Ordering Physician: Amber Ng PA-C Date of Service: 12/10/24 Procedure(s): XR chest 2V Accession Number(s): [id number] cc: Hallie Rosario MD; Amber Ng PA-C [...] in OV> 12/10/241710 DD/ 10 TD/TT: 12/10/241710 Nip Wrapper: Result [facility] External Provider IMG XR PROCEDURES Edited Result - Final * (ABNORMAL) TSH W/Reflex to FT4 (12/06/2024 9:25 AM EDT) TSH reflex Free T4 4.30(H) 0.32 - 4.0 uIU/mL [facility] Blood Venous blood specimen / Unknown 12/06/2024 9:25 AM EDT 12/06/2024 3:03 PM EDT Result [facility] Hallie Rosario MD LAB BLOOD ORDERABLES Final Re sult Performing Organization Address [facility] Co de Phone Number [facility] [address] [place] [phone] * T4, Free (12/06/2024 9:25 AM EDT) Free T4 (Free Thyroxine) 0.85 0.71 - 1.85 ng/dL [facility] 12/06/2024 9:25 AM EDT 12/06/2024 3:03 PM EDT Result [facility] Hallie Rosario MD LAB BLOOD ORDERABLES Final Re sult Performing Organization Address City/[facility]/ZIP Co de Phone Number [facility] [address] [place] [phone] * Hepatitis C Antibody with Reflex to HCV, RNA, Quantitative, Real-Time PCR (09/27/2024 10:03 AM EDT) Hepatitis C Antibody Nonreactive Nonreactive [facility] Comment:Antibodies to HCV no t detected; does not exclude early acuteHCV infection. Blood Venous blood specimen / Unknown 09/27/2024 10:03 AM EDT 09/27/2024 2:20 PM EDT us Hallie Rosario MD LAB BLOOD ORDERABLES Final Re sult [facility] [address] [place] [phone] * BI Mammogram Screening Tomosynthesis Bilateral (06/07/2024 11:50 AM EST) Anatomical Region Laterality Modality Breast Bilateral Mammography 06/07/2024 11:5 0 AM EST Narrative 06/13/2024 4:10 PM EST [facility] [address] [place] [address] Mammography Report Signed Patient: Yoana Powell MR# : [id number] : 1970 Acct:[id number] Age/Sex: 54 / F ADM Date: 06/07/24 Loc: HO.MAMMO Attending Dr: Josef Kimble MD Ordering Physician: Josef Kimble MD Results: 1Negativ e Date of Service: 06/07/24 Follow Up: 1 Year From Orig ina Mammogram Procedure(s): MM tomosynthesis screening BI Accession Number(s): [id number] cc: Hallie Rosario MD; Josef Kimble MD [...] by: Samantha Burrows DO 06/13/2024 04:07 PM [facility] Dictated By: Samantha Burrows DO Signed By: <Electronically signed by Samantha Burrows DO in OV> 06/13/24 1607 DD/ 1150 TD/TT: 06/07/24 1202 Nip Wrapper: Procedure Note Donotuseinterpreter, Image - 06/13/2024 [facility] [address] [place] [address] Mammography Report Signed Patient: Yoana Powell AMR# : [id number] : 1970Acct:[id number] Age/Sex: 54 / FADM Date: 06/07/24 Loc: HO.MAMMO Attending Dr: Josef Kimble MD Ordering Physician: Josef Kimble MDResults: 1Negativ e Date of Service: 06/07/24Follow Up: 1 Year From Orig ina Mammogram Procedure(s): MM tomosynthesis screening BI Accession Number(s): [id number] cc: Hallie Rosario MD; Josef Kimble MD [...] 06/13/24 1607 DD/ 1150 TD/TT: 06/07/24 1202 Nip Wrapper: [facility] External Provider IMG BI PROCEDURES Final Result * Pap Smear (04/26/2024 8:22 AM EST) 04/26/2024 8:22 AM EST 04/26/2024 11:25 AM EST [facility] - 05/03/2024 10:21 AM EST ----- ------- Name: Yoana Powell Age/Sex: 53/F : 1970 Unit#: [id number] Attend Dr: Josef Kimble MD Re04/26/24 Status: DEP REF Location: HO.LNP Disch: ----- ------- SPEC : [id number] RECD: 04/26/24 STATUS: YI CARDONA NUM: [id number] GUERDA: 04/26/[address] [facility] [address]: Josef Kimble MD ENTERED: 04/26/24 SP TYPE: Pap Smr OTHR DR: Hallie Rosario MD ORDERED: Pap Smear Interpretation Satisfactory for evaluation. Negative for intraepithelial lesion or malignancy. Mild inflammation. HPV High Risk: Negative HPV Genotyping 16: Negative HPV Genotyping 18: Negative Clinical Information LMP: Postmenopausal Previous PAP test: 10/2022, ASCUS, HPV + Material Received ThinPrep-Cervical Copies To: Hallie Rosario MD [address] [address] Josef Kimble MD [facility] [address] [place] [phone] ----- ------- Signed (signature on file) BRITNI Wooten (ASCP) 05/03/24 1021 ----- ------- END OF REPORT us Generic External Data Provider LAB CYTOLOGY RAY NAVAS Final Result [facility] [address] [place] [phone] [phone] * (ABNORMAL) Image-Guided Pap with Age-Based Screening Protocols (11/25/2022 10:23 AM EDT) Comment [facility] [place] [employer] Comment: This order for age-based cervical cancer and STI screening follows ACOG guidelines(PB 168, 140, KLS107). See individual assays for performing site location. Clinical Information: None given [facility] LMP: NONE GIVEN [facility] Prev. PAP: NONE GIVEN [facility] Prev. BX: NONE GIVEN [facility] SOURCE: None given [facility] Statement Of Adequacy: [facility] [place] [employer] Comment: Satisfactory for evaluation. Endocervical/transformation zone component present. General Categorization: Cytology Results: Epithelial Cell Abnormality(A) [facility] [place] [employer] Interpretation/ Result: Atypical Squamous Cells of Undetermined Significance (ASC-US)(A) [facility] [place] [facility] COMMENT: This Pap test has been evaluated with computer assisted technology. [place] [place] Cytotechnologis t: [employer] Comment: [facility] CT(ASCP) CT screening location: [address] [address] PATHOLOGIST: [facility] [place] [facility] [employer] Comment: Jazzmine Calhoun D.O. Board Certified in Anatomic, Clinical and Cytopathology (electronic signature) Consulting Pathologist [facility] Pathology [address] [place] [phone] (Always Message) [facility] [place] [facility] Comment: EXPLANATORY NOTE: The Pap is a [...] information. HPV nRNA E6/E7 Detected(A) Not Detected [employer] Comment: Methodology: Fitness Assistant-Mediated Amplification This assay detects E6/E7 viral messenger RNA (mRNA) from 14 high-risk HPV types (16,18,31,33,35,39,45,51,52,56,58,59,66,68). Cervical sources are required for HPV testing. If a vaginal source from a patient who has had a total hysterectomy with removal of cervix was submitted, please contact the testing laboratory for alternative testing options. For additional information, please refer to http://education.[employer]/faq/OBI239d5 (This link if provided for information/ educational purposes only.) Cervix 11/25/2022 10:2 3 AM EDT 11/26/2022 2:57 AM EDT Hallie Rosario MD LAB BLOOD ORDERABLES Final Re sult [facility] [address], [place] [address] [facility] [address] [place] [address] * HM iFOBT (2022 4:55 PM EST) Stool Historical Provider POINT OF CARE TEST ENTER/ EDIT ORDERABLES Final Result * Colonoscopy (2022 4:55 PM EST) Historical Provider HEALTH MAINTENANCE Final Result from Last 3 Months or Most Recently Relevant to Health Maintenance Insurance [facility] Care Teams Form Block Maker Relationship Specialty Start Date End Date Hallie Rosario MD [address] [place] [address] PCP - General Family Medicine 10/18/15
--- OUTSIDE RECORDS SUMMARY | 2025-02-14 07:50 | XMS_ITS | Encounter Summary ---
Author Organization [employer] Address [address] [place] [address] 7 [place] [address] Care Team Providers Care Yarn Packer Name Role Phone Hallie Rosario MD Primary Care Provider [phone] Reason for Visit * Reason Comments Med Refill Encounter Details Date Type Department Care Team ([facility] Contact Info) Description 07/26/2022 Refill [facility] [address] [place] [address] Hallie Rosario MD [address] [place] [address] Acquired hypothyroidism Social History Tobacco Use Types [...] Upcoming Encounters Date Type Department Care Team ([facility] Contact Info) Description 03/06/2025 10:00 AM EDT Clinical Support [facility] [address] [place] [address] documented as of this encounter Visit Diagnoses Diagnosis Acquired hypothyroidism Unspecified hypothyroidism documented in this encounter Additional Health Concerns Assessment Noted Time PHQ-9 Depression Total Score: 23 023 9:33 AM EST documented as of this encounter Care Teams Yarn Packer Relationship Specialty Start Date End Date Hallie Rosario MD [address] [place] [address] PCP - General Family Medicine 10/18/15 documented as of this encounter
--- OUTSIDE RECORDS SUMMARY | 2025-02-14 07:50 | XMS_ITS | Encounter Summary ---
Author Organization [employer] Address [address] [facility] 7t [place] [address] Care Team Providers Care Professor Of Music Name Role Phone Hallie Rosario MD Primary Care Provider [phone] Reason for Visit * Reason Comments Med Refill Encounter Details Date Type Department Care Team ([facility] st Contact Info) Description 06/22/2023 Refill [facility] PEDS [address] [place] [address] Hallie Rosario MD [address] [place] [address] Vitamin D deficiency Social History Tobacco Use [...] Upcoming Encounters Date Type Department Care Team ([facility] st Contact Info) Description 03/06/2025 10:00 AM EDT Clinical Support [facility] [address] [place] [address] documented as of this encounter Visit Diagnoses Diagnosis Vitamin D deficiency documented in this encounter Additional Health Concerns Assessment Noted Time PHQ-9 Depression Total Score: 23 023 9:33 AM EST documented as of this encounter Care Teams Professor Of Music Relationship Specialty Start Date End Date Hallie Rosario MD [address] [place] [address] PCP - General Family Medicine 10/18/15 documented as of this encounter
--- OUTSIDE RECORDS SUMMARY | 2025-02-14 07:50 | XMS_ITS | Encounter Summary ---
Author Organization [employer] Address [address] [facility] 7t [place] [address] Care Team Providers Care Program Schedule Clerk Name Role Phone Hallie Rosario MD Primary Care Provider [phone] Encounter Details Date Type Department Care Team ([facility] st Contact Info) Description 05/28/2024 Orders Only [facility] [address] [place] [address] ProviderIsaiah MD Social History Tobacco Use Types [...] Description 03/06/2025 10:00 AM EDT Clinical Support [facility] [address] [place] [address] documented as of this encounter Procedures Procedure [...] EST Narrative 06/13/2024 4:10 PM EST [facility] [address] [place] [address] Mammography Report Signed Patient: Yoana Powell MR# : [id number] : 1970 Acct:[id number] Age/Sex: 54 / F ADM Date: 06/07/24 Loc: HO.MAMMO Attending Dr: Josef Kimble MD Ordering Physician: Josef Kimble MD Results: 1Negativ e Date of Service: 06/07/24 Follow Up: 1 Year From Orig inal Mammogram Procedure(s): MM tomosynthesis screening BI Accession Number(s): [id number] cc: Hallie Rosario MD; Josef Kimble MD [...] by: Samantha Burrows DO 06/13/2024 04:07 PM [facility] Dictated By: Samantha Burrows DO Signed By: <Electronically signed by Samantha Burrows DO in OV> 06/13/24 1607 DD/ 1150 TD/TT: 06/07/24 1202 Java Developer: Procedure Note Donotuseinterpreter, Image - 06/13/2024 [facility] [address] [place] [address] Mammography Report Signed Patient: Yoana Powell AMR# : [id number] : 1970Acct:[id number] Age/Sex: 54 / FADM Date: 06/07/24 Loc: HO.MAMMO Attending Dr: Josef Kimble MD Ordering Physician: Josef Kimble MDResults: 1Negativ e Date of Service: 06/07/24Follow Up: 1 Year From Orig inal Mammogram Procedure(s): MM tomosynthesis screening BI Accession Number(s): [id number] cc: Hallie Rosario MD; Josef Kimble MD [...] 06/13/24 1607 DD/ 1150 TD/TT: 06/07/24 1202 Java Developer: [facility] External Provider IMG BI PROCEDURES [...] documented as of this encounter Care Teams Program Schedule Clerk Relationship Specialty Start Date End Date Hallie Rosario MD [address] [place] [address] PCP - General Family Medicine 10/18/15 documented as of this encounter
--- OUTSIDE RECORDS SUMMARY | 2025-02-14 07:50 | XMS_ITS | Encounter Summary ---
Author Organization [employer] Address [address] [place] [address] [address], [place] [address] Care Team Providers Care Retail Area Manager Name Role Phone Hallie Rosario MD Primary Care Provider [phone] Encounter Details Date Type Department Care Team (Late Contact Info) Description 05/09/2022 Telephone [facility] [address] [place] [address] Hallie Rosario MD [address] [place] [address] Social History Tobacco Use Types Packs/Day Years [...] Description 03/06/2025 10:00 AM EDT Clinical Support [facility] [address] [place] [address] documented as of this encounter Visit Diagnoses Not on filedocumented in this encounter Care Teams Retail Area Manager Relationship Specialty Start Date End Date aHllie Rosario MD [address] [place] [address] PCP - General Family Medicine 10/18/15 documented as of this encounter
== END 2025-02-14 07:49 | disposition home or self-care (01) ==
LOC: HO.US 07:48
PROVIDERS: PCP Pediatrics; Visit Provider Pediatrics
DX: K76.0 Fatty (change of) liver, not elsewhere classified (principal)
CPT/HCPCS: 76700; 76981

== ENCOUNTER → 2025-02-14 08:01 | Outpatient (BNV) | payer OTHER, SELFPAY | PROVIDERS: PCP Pediatrics; Visit Provider Radiology Diagnostic Radiology | DX: K76.0 Fatty (change of) liver, not elsewhere classified (principal); K82.8 Other specified diseases of gallbladder | CPT/HCPCS: 76700 ==

== ENCOUNTER 2025-05-09 09:59 | Outpatient (AMB) | payer OTHER, SELFPAY ==
--- NOTE | 2025-05-09 10:16 | MHC.OFFVIS ---
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 No complaints. Last Pap/HPV was negative in 04/24 Last Mammogram was BI-RADS 1 in 06/25 Last colonoscopy was in 04/22, the recommendation was to repeat 10 years [facility] Medical History (Updated 05/09/25 @ 10:33 by Josef Kimble MD) ASCUS with positive high risk HPV cervical History of COVID-19 Anemia Gastroesophageal reflux disease Thyroid activity decreased Surgical History Hx of cataract surgery H/O colonoscopy History of tubal ligation History of esophagogastroduodenoscopy (EGD) Social History Household Members Other:: daughter Housing: House Are you a primary rn transitional care to a significant other at home: No Do you presently have visiting nurse or other home services: No Alcohol intake: current Alcohol intake frequency: holidays/special occasions only Patient Tobacco Use Status: Never used Tobacco Use of substances other than those prescribed or required for medical reasons: No Current occupational status: employed 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 Sexually active: No Sexual orientation: Straight/Heterosexual Gender identity: Female Female Reproductive History Menstrual Age of Menarche: 14 control method: permanent sterilization Menopause type: natural Total pregnancies: 3 Full term: 3 Number of Living Children: 3 Date of last pap smear: 04/26/24 Date of Mammogram: 06/07/24 Review of Systems Const All systems reviewed & are unremarkable except as noted in HPI and below Card Reports as per HPI Resp Reports as per HPI GI Reports as per HPI and Reports no additional complaints Reports as per HPI Physical Exam Vital Signs: Last Vital Signs BP 130/72 12/09/25 10:17 BMI result Body Mass Index 27.5 Const General: cooperative, healthy appearing and comfortable Chest Chest palpation & inspection: normal inspection of the chest and normal palpation of entire chest wall Breast/axilla inspection: normal inspection of the breasts and normal inspection of the axillae Breast/axilla palpation: normal palpation of the breasts, normal palpation of the axillae and no axillary lymphadenopathy Resp Effort & Inspection: normal respiratory effort Auscultation: clear to auscultation bilaterally Percussion: percussion normal Cardio Palpation: normal PMI Rate: regular rate Rhythm: regular rhythm Heart sounds: no murmurs and no rubs Peripheral pulses: Peripheral pulses 2+ throughout GI Inspection: Yes normal to inspection Palpation (GI): Soft to palpation, nontender, no guarding, not rigid and No hepatosplenomegaly present Percussion: Yes normal to percussion Auscultation: normal bowel sounds Rectal Exam - Female: deferred General: Yes bladder normal to palpation External Female Exam: No lesion Speculum Exam - Vagina: normal appearance of the vagina, normal palpation, normal vaginal discharge and not erythematous Speculum Exam - Cervix: normal appearance of the cervix and normal palpation Bimanual exam- vagina & uterus: normal bimanual exam, normal palpation, uterine size normal, bladder normal to palpation, consistency normal and normal palpation Bimanual Exam- Adnexa, other: normal adnexae, no masses and no tenderness Assessment & Plan Assessment & Plan (1) Well woman exam: Code(s): Z01.419 - Encounter for gynecological examination (general) (routine) without abnormal findings Category: Medical Plan: Cotesting done. Mammogram ordered. Counseled the patient about the recommended dietary allowance of 1000 mg of Calcium & 600 IU of vitamin D. The patient was instructed to perform monthly self-breast exams and to schedule an annual exam in a year; All questions answered and the patient verbalized understanding. Instructed the patient to schedule annual exam in a year Orders: Orders MM tomosynthesis screening BI Today Z12.31 - Encounter for screening mammogram for malignant neoplasm of breast Coding Level of Care Code Est Pt Prev Care 40-64y(31251) Diagnoses Well woman exam Z01.419
[2025-05-09 10:17] VITALS: BP 130/72; BMI 27.5
== END 2025-05-09 11:06 | disposition home or self-care (01) ==
LOC: HO.HWS 09:59
PROVIDERS: PCP Pediatrics; Visit Provider Obstetrics & Gynecology
DX: Z01.419 Encounter for gynecological examination (general) (routine) without abnormal findings (principal)
CPT/HCPCS: 99396; 99459

== ENCOUNTER 2025-05-09 09:59 | Outpatient (REF) | payer OTHER, SELFPAY | END 2025-05-09 10:00 | disposition home or self-care (01) | LOC: HO.LNP 09:59 | PROVIDERS: PCP Pediatrics; Visit Provider Obstetrics & Gynecology | DX: Z01.419 Encounter for gynecological examination (general) (routine) without abnormal findings (principal); Z12.31 Encounter for screening mammogram for malignant neoplasm of breast; R87.810 Cervical high risk human papillomavirus (HPV) DNA test positive; R87.610 Atypical squamous cells of undetermined significance on cytologic smear of cervix (ASC-US); Z98.51 Tubal ligation status | CPT/HCPCS: 87626; 88175 ==